=== PATIENT | male | born 1945 | race Caucasian/White ===

== ENCOUNTER 2017-06-12 10:45 | Day surgery (SDC) | payer MEDICARE ==
[~2017-06-12 10:45] MED LIST: Buffered Lidocaine 0.9% SYRIN* 5 ML/SYR SYRINGE INTRADERM ONE; Famotidine IV* 10 MG/ML 2 ML (20 mg) IV ONE
[2017-06-12] MEDS ORDERED: Famotidine IV* 10 MG/ML 2 ML (20 mg) ONE (10:55)
[2017-06-12] MEDS ORDERED: Buffered Lidocaine 0.9% SYRIN* 5 ML/SYR SYRINGE ONE (10:56)
[2017-06-12] MEDS ORDERED: Lidocaine 1% INJ* 10 MG/ML 30 ML SDV ONE (11:40)
[2017-06-12] MEDS ORDERED: Lidocaine 2% JELLY* 6 ML JELLY TOPICAL ONE (11:40)
[2017-06-12] MEDS ORDERED: Lidocaine 2% PF* 10 ML AMP ONE (11:40)
[2017-06-12] MEDS ORDERED: fentaNYL* 50 MCG/ML 2 ML VIAL (100 MCG VIAL) ONE (12:28)
[2017-06-12] MEDS ORDERED: Midazolam* 1 MG/ML 2 ML VIAL (2 MG) ONE (12:28)
[2017-06-12] MEDS ORDERED: Propofol* 10 MG/ML 20 ML BTL IV PUSH ONE (12:28)
[2017-06-12] MEDS ORDERED: DiMENhydriNATE IV* 50 MG/ML VIAL IV PUSH PRN (13:13)
[2017-06-12] MEDS ORDERED: fentaNYL* 50 MCG/ML 2 ML VIAL (100 MCG VIAL) IV PRN (13:13)
[2017-06-12 14:36] VITALS: BP 113/82
--- NOTE | 2017-06-13 03:49 | PRO ---
BRONCHOSCOPY REPORT: DATE OF PROCEDURE: 06/12/17 PROCEDURE PERFORMED: Bronchoscopy and bronchoalveolar lavage. ANESTHESIA: Conscious sedation, local anesthesia. ANESTHESIOLOGIST: Dr. Adam. DESCRIPTION OF PROCEDURE: Informed consent was obtained from the patient prior to the procedure after all the risks and benefits were thoroughly explained. The patient with complaint of cough recently. The patient had CT scan of the chest, which showed loculated small left pleural effusion with no endobronchial lesions. Given persistent cough, bronchoscopy was performed for airway evaluation. The patient was positioned with head elevated at 30 degrees prior to the procedure. The patient had upper airway and nares anesthetized with 2% lidocaine. The patient received Propofol for sedation. Bronchoscope was inserted through left nares. Flexible Olympus bronchoscope was utilized. Vocal cords were moving normally with inspiration. No lesions were noted. Bronchoscope was then advanced into the trachea. Evidence of severe tracheal bronchomalacia was noted. There was dynamic collapse of the airways. 2% lidocaine was instilled at the level of allison. Bronchoscope was then advanced into the right bronchial tree, which was then inspected. No endobronchial lesions were noted. There was evidence of thick secretions and significant dynamic collapse. Secretions were suctioned out. Bronchoalveolar lavage was obtained from right middle lobe airway. Bronchoscope was then advanced into the left bronchial tree, which was inspected. No endobronchial lesions were noted on the left side. There was also evidence of significant bronchomalacia. Thick secretions were noted and were suctioned out. The patient tolerated the procedure well. The patient was seen in Recovery in optimal condition. [id number]/[facility] #: [id number] MTDD
== END 2017-06-12 14:37 | disposition home or self-care (01) ==
LOC: OR 10:45
PROVIDERS: ATTEND Internal Medicine
DX: J90 Pleural effusion, not elsewhere classified (principal); R05 Cough; Z79.01 Long term (current) use of anticoagulants; I48.91 Unspecified atrial fibrillation; E11.9 Type 2 diabetes mellitus without complications; Z79.84 Long term (current) use of oral hypoglycemic drugs; Z87.891 Personal history of nicotine dependence; I25.10 Atherosclerotic heart disease of native coronary artery without angina pectoris; L40.50 Arthropathic psoriasis, unspecified
CPT/HCPCS: 87070; 87077; 87102; 87107; 87116; 87186; 87205; 87206; 88112; J2001; J2250; J2704; J3010

== ENCOUNTER 2018-04-01 13:00 | Inpatient (IN) | payer MEDICARE ==
--- NOTE | 2018-06-19 13:50 | HP ---
Amended report to add cosigning physician to report. HISTORY AND PHYSICAL: DATE OF ADMISSION/SURGERY: 07/01/18 DATE OF OFFICE VISIT: 06/18/18 SURGEON: Genna Palacio MD.* PROCEDURE: Right total hip arthroplasty. CHIEF COMPLAINT: Right hip pain. HISTORY OF PRESENT ILLNESS: Mr. 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 He has failed conservative treatment and elected to proceed with a right total hip arthroplasty, which is scheduled for 07/01/18. PAST MEDICAL HISTORY: Hypertension, AFib, diabetes, history of a DVT, thoracic aortic aneurysm, coronary artery disease, high cholesterol, sleep apnea, history of TIA, and asthma. PAST SURGICAL HISTORY: Carotid endarterectomy, right carpal tunnel release, cardiac stent placements, and right knee surgery. CURRENT MEDICATIONS: 1. Simponi. 2. Gabapentin 300 mg. 3. [place] 7.5/325. 4. Vitamin D3. 5. Eliquis 5 mg twice a day. 6. Atorvastatin calcium 10 mg daily. 7. Nifedipine ER 30 mg daily. 8. Klor-Con 10 mEq 2 by mouth daily. 9. Metformin 1000 mg twice a day. 10. Citalopram hydrobromide 40 mg daily. 11. Metoprolol 200 mg 1 tab in the morning, half a tab at night. 12. Nortriptyline 10 mg 2 tabs daily. 13. Glyburide 5 mg half a tab in the morning, a whole tab in the afternoon. 14. Enalapril 10 mg twice a day. 15. Plavix 75 mg daily. 16. Nitrostat as needed. 17. Pantoprazole sodium 40 mg daily. 18. Folic acid. 19. IV methotrexate weekly. ALLERGIES: To PENICILLIN, SULFA, and HOLTER MONITOR ELECTRODES. FAMILY HISTORY: Psoriatic arthritis and cancer. SOCIAL HISTORY: He is a 72-year-old gentleman, lives with his . He does not smoke or use drugs. Uses occasional alcohol. REVIEW OF SYSTEMS: A complete 14-point review of systems was reviewed with the patient. It was positive for diabetes, asthma, TIAs, and history of an upper extremity DVT following rotator cuff repair. He denies history of hepatitis, HIV, MRSA, or anesthesia problems. PHYSICAL EXAMINATION GENERAL: He is well developed, well nourished, in no acute distress. VITAL SIGNS: He stands 5 feet 3 inches tall, weighs 229 pounds. His blood pressure is 136/84, his heart rate is 80. HEENT: Normocephalic, atraumatic. NECK: Supple. No palpable lymph nodes. PULMONARY: The lungs are clear to auscultation bilaterally. CARDIO: Regular rate and rhythm. Strong S1, S2. ABDOMEN: Soft, nontender, nondistended. NEUROLOGICAL: He is alert and oriented x3. MUSCULOSKELETAL: Right lower extremity: The skin is intact. There are no open wounds or abrasions. He walks with an antalgic-type gait, favoring his right hip. He has decreased internal and external rotation of the right hip. He has a 2+ dorsalis pedis pulse, intact sensation and his lower extremity muscle group strengths are intact at 5/5. ASSESSMENT AND PLAN: Mr. Gregory is a 72-year-old gentleman with end-stage osteoarthritis of the right hip. He has failed conservative treatment and elected to proceed with a right total hip arthroplasty. The surgery is scheduled for 07/01/[address] Palacio discussed the risks and benefits of the surgery at today's visit and all of his questions were answered. He will follow up with Dr. Palacio 2 weeks after the surgery. During the office visit today, we did discuss the blood thinners that he is on. He was told to stop the Plavix 7 to 10 days prior to the surgery and the Eliquis 2 to 3 days prior to the surgery. We will restart the Eliquis as soon as possible for DVT prophylaxis after the surgery. LORENA DOTY [id number]/[facility] #: [id number] GIOVANI
[2018-06-30] MEDS ORDERED: Buffered Lidocaine 0.9% SYRIN* 5 ML/SYR SYRINGE INTRADERM ONE (11:07)
[2018-06-30] MEDS ORDERED: Ondansetron TAB* 4 MG PO ONE (11:07)
[2018-07-01] MEDS ORDERED: Naloxone* 0.4 MG/ML 1 ML VIAL IV PRN (05:59)
[2018-07-01] MEDS ORDERED: Morphine VIAL* 4 MG/ML VIAL (1 ml vial) IV PRN (05:59)
[2018-07-01] MEDS ORDERED: PROCHLORPERAZINE INJ 5 MG/ML 2 ML VIAL IV PRN (05:59)
[2018-07-01] MEDS ORDERED: DiMENhydriNATE IV* 50 MG/ML VIAL IV PUSH PRN (05:59)
[2018-07-01] MEDS ORDERED: oxyCODONE/Acetamin 5/325 MG* TAB PO PRN ×2 (05:59→15:19)
[2018-07-01] MEDS ORDERED: Famotidine IV* 10 MG/ML 2 ML (20 mg) IV ONE (06:00)
[2018-07-01] MEDS ORDERED: Gabapentin CAP(*) 300 MG PO ONE (06:00)
[2018-07-01] MEDS ORDERED: Famotidine IV* 10 MG/ML 2 ML (20 mg) ONE (09:41)
[2018-07-01] MEDS ORDERED: Gabapentin CAP(*) 300 MG ONE (09:42)
[2018-07-01] MEDS ORDERED: Ondansetron ODT TAB* 4 MG ONE (09:42)
[2018-07-01] MEDS ORDERED: Clindamycin 900 MG/D5W BAG(*) 900 MG/50 ML BAG IVPB ONE (09:42)
[2018-07-01] MEDS ORDERED: KETAMINE HCL* 50 MG/ML 10 ML VIAL ONE (10:19)
[2018-07-01] MEDS ORDERED: fentaNYL* 50 MCG/ML 2 ML VIAL (100 MCG VIAL) ONE ×2 (10:19→15:54)
[2018-07-01] MEDS ORDERED: Midazolam* 1 MG/ML 5 ML VIAL (5 MG) ONE (10:20)
[2018-07-01] MEDS ORDERED: PROCHLORPERAZINE INJ 5 MG/ML 2 ML VIAL ONE (13:04)
[2018-07-01] MEDS ORDERED: EPHEDrine (Pressors)* 50 MG/ML VIAL ONE (13:04)
[2018-07-01] MEDS ORDERED: Lidocaine 2% PF * 5 ML VIAL ONE (13:04)
[2018-07-01] MEDS ORDERED: Phenylephrine INJ* 10 MG/ML 1 ML VIAL (10 MG) ONE (13:04)
[2018-07-01] MEDS ORDERED: Ketorolac INJ* 30 MG/ML 1 ML VIAL ONE (13:04)
[2018-07-01] MEDS ORDERED: Propofol* 10 MG/ML 20 ML BTL IV PUSH ONE (13:04)
[2018-07-01] MEDS ORDERED: Bupivacaine 0.5% SDV PF* 30ML VIAL ONE (13:05)
[2018-07-01] MEDS ORDERED: Morphine VIAL* 10 MG/ML 1 ML VIAL ONE (13:36)
--- NOTE | 2018-07-01 14:28 | RAD ---
HISTORY: RIGHT TOTAL HIP REPLACEMENT COMPARISONS: February 28, 2018 VIEWS: 1 , portable intraoperative view of the right hip during hip arthroplasty FINDINGS: Single portable intraoperative view of the right hip during hip arthroplasty at 1:47 PM demonstrates a right hip arthroplasty with a temporary femoral sizing component. IMPRESSION: LIMITED PORTABLE INTRAOPERATIVE VIEW OF THE RIGHT HIP DURING HIP ARTHROPLASTY.
[2018-07-01] MEDS ORDERED: ROPIVACAINE 5 MG/ML 30 ML BTL (0.5%) ONE ×2 (14:32→18:22)
[2018-07-01] MEDS ORDERED: Ondansetron INJ* 2 MG/ML VIAL IV PRN (15:19)
[2018-07-01] MEDS ORDERED: oxyCODONE TAB* 5 MG TAB PO PRN (15:19)
[2018-07-01] MEDS ORDERED: Bisacodyl SUPP* 10 MG SUPP PR PRN (15:19)
[2018-07-01] MEDS ORDERED: diPHENhydraMINE IV* 50 MG/ML 1 ml VIAL (BENADRYL) IV PRN (15:19)
[2018-07-01] MEDS ORDERED: Acetaminophen TAB* 325 MG PO PRN (15:19)
[2018-07-01] MEDS ORDERED: Magnesium Hydroxide LIQ* 30 ML UDC PO PRN (15:19)
[2018-07-01] MEDS: fentaNYL* 50 MCG/ML 2 ML VIAL (100 MCG VIAL) IV PRN ×3 (15:55→16:01)
[2018-07-01] MEDS ORDERED: Morphine VIAL* 4 MG/ML VIAL (1 ml vial) IV ONE (16:03)
--- NOTE | 2018-07-01 16:04 | RAD ---
HISTORY: S/P RTHA COMPARISONS: February 28, 2018 VIEWS: 3 , Frontal view of the pelvis with frontal and crosstable lateral views of the right hip FINDINGS: BONE DENSITY: Normal. BONES: The patient is status post right hip arthroplasty. There is no hardware failure or osteolysis. JOINTS: The patient is status post right hip arthroplasty. ALIGNMENT: There is no dislocation. SOFT TISSUES: Unremarkable. OTHER FINDINGS: None. IMPRESSION: STATUS POST RIGHT HIP ARTHROPLASTY.
--- NOTE | 2018-07-01 16:44 | PN ---
Progress Note - Progress Note Date of Service: 07/01/18 Note: resting in recovery room. Pain well controlled. able to dorsi flex, 2+ DP pulse and intact sensation. dressing c/d/i
[2018-07-01] MEDS ORDERED: Dextrose 50% Syringe 50 ML* 25 GM/50 ML SYRINGE IV PUSH PRN (17:07)
[2018-07-01] MEDS: Magnesium Hydroxide LIQ* 30 ML UDC PO SCH (20:38)
[2018-07-01] MEDS: Docusate CAP* 100 MG PO SCH (20:38)
[2018-07-01] MEDS: oxyCODONE/Acetamin 5/325 MG* TAB PO PRN (20:38)
[2018-07-01] MEDS: Clindamycin 600 MG IVPREMIX(* 600 MG/50 ML SDV IV SCH (20:42)
[2018-07-01] MEDS: Insulin LISPRO* 1 UNITS UNIT SUBCUT SCH (20:53)
[2018-07-01] MEDS ORDERED: Apixaban* 5 MG TAB PO SCH (21:00)
[2018-07-01] MEDS ORDERED: Metoprolol Tartrate TAB* 25 MG PO ONE (21:00)
--- NOTE | 2018-07-01 22:15 | CONS ---
CONSULTATION REPORT: DATE OF CONSULT: 07/01/18 PROVIDER: Gretchen Sun NP ATTENDING PHYSICIAN: Dr. Sujey Mireles. REFERRING PHYSICIAN: Orthopedic surgeon, Dr. Palacio. PRIMARY CARE PROVIDER: Dr. Puma Nixon. REASON FOR CONSULT: Co-medical management, status post right hip total arthroplasty. HISTORY OF PRESENT ILLNESS: Mr. Gregory is a 72-year-old male with end-stage osteoarthritis, who failed conservative treatment and underwent an elective right total hip arthroplasty today with Dr. Palacio. He had a successful surgery with no intraoperative complications. He was seen and evaluated in the postanesthesia care unit where he was found to be lying in bed with his at the bedside. He is drowsy and still recovering from anesthesia. He currently denies pain. Vital signs are noted to be stable. The patient underwent a preoperative cardiac workup by his director occupational, Dr. Cohen, as well as his primary care provider, Dr. Nixon and web marketing assistant, Dr. Christie. The has no concerns at this time. PAST MEDICAL HISTORY: Hypertension; atrial fibrillation; stc-pmrmmvq-nytghalpt type 2 diabetes; history of DVT; thoracic aortic aneurysm; coronary artery disease, status post stent placement; hyperlipidemia; sleep apnea; history of TIA; asthma; and history of moderate aortic stenosis. PAST SURGICAL HISTORY: 1. Carotid endarterectomy. 2. Right carpal tunnel release. 3. Cardiac stent placement. 4. Right knee surgery. HOME MEDICATIONS: 1. Metformin 1000 mg p.o. b.i.d. 2. Glyburide 2.5 mg half a tab in the a.m. and a full tab in the evening. 3. Potassium chloride 20 mEq p.o. q.a.m. 4. Protonix 40 mg p.o. q.a.m. 5. Nortriptyline 20 mg p.o. at bedtime. 6. Metoprolol succinate 200 mg p.o. q.a.m. and 100 mg p.o. q.p.m. 7. Nitroglycerin 0.4 mg sublingual p.r.n. 8. Methotrexate 0.4 mL (10 mg) subcu once weekly. 9. Vasotec 10 mg p.o. b.i.d. 10. [place] 10/325 mg 1 tab p.o. q.6 hours p.r.n. 11. Folic acid 1 mg p.o. q.a.m. 12. Celexa 40 mg p.o. q.a.m. 13. Plavix 75 mg p.o. daily. 14. Eliquis 5 mg p.o. b.i.d. 15. Atorvastatin 10 mg p.o. q.p.m. 16. Procardia XL 30 mg p.o. q.p.m. 17. Simponi Aria 50 mg/4 mL 2 mg/kg IV infusion, see instructions. Current medications: Reviewed and appreciated. ALLERGIES: PENICILLIN, SULFA. FAMILY HISTORY: Cancer and psoriatic arthritis. SOCIAL HISTORY: Denies history of tobacco abuse. Occasional alcohol use. He currently lives with his , Dede Gregory, who is his healthcare proxy. Her number is [phone]. REVIEW OF SYSTEMS: A 14-point review of systems was completed. All the pertinent positives and negatives as mentioned in the history of present illness. Otherwise are negative. PHYSICAL EXAM: Vital Signs: Temperature 98.1, heart rate 72, respirations 16, O2 sat 98% on 2 L via nasal cannula, blood pressure 122/86. General Appearance : A 72- year-old male, lying in the PACU stretcher, drowsy, alert and oriented , in no acute distress. HEENT: Head is normocephalic and atraumatic. Pupils are equal and reactive to light. Oropharynx is clear. Dry mucous membranes. Cardiac: S1, S2. Regular rate and rhythm. No murmur, rub, or gallop appreciated. No lower extremity edema noted. Lungs: Clear to auscultation bilaterally with good aeration throughout. Abdomen: Soft, obese, nontender. Normal bowel sounds throughout. Extremities: The patient is in a hip restricted pillow. Right hip has dry, clean, and intact dressing with ice packs. The patient has sensation to lower extremities bilaterally. Neuro: Alert and oriented x3. No focal deficits noted. ASSESSMENT AND PLAN: Mr. Gregory is a 72-year-old male with a past medical history of end-stage osteoarthritis; coronary artery disease, status post stent placement; paroxysmal atrial fibrillation, on Eliquis; pgb-ilvqgzi-bukozwqrh type 2 diabetes; history of moderate aortic stenosis; psoriatic arthritis, who underwent an elective right total hip arthroplasty with Dr. Palacio. [facility] was asked to co- medical manage. 1. Status post right hip total arthroplasty. Disposition per orthopedic team. PT/OT. Bowel regimen. 2. Paroxysmal atrial fibrillation. Recommendation per primary was to restart anticoagulation as soon as cleared by Ortho. Discussed with Dr. Palacio, who agrees restarting home dose Eliquis 5 mg p.o. b.i.d. starting tomorrow morning on 07/02/18. The patient currently is in a normal sinus rhythm. Continue metoprolol; however, I will hold his home dose which he takes metoprolol succinate 100 mg p.o. q.p.m. and 200 mg q.a.m. I will plan to give 1 dose of metoprolol tartrate 25 mg p.o. this evening and we will monitor blood pressures in the postoperative phase. 3. Eea-mozbfdt-prsabtbts type 2 diabetes. Hold home oral medications and start on fingerstick blood glucose monitoring a.c. and h.s. with lispro sliding scale. 4. History of coronary artery disease, status post stent placement. Recommendation per Cardiology on preop evaluation recommended continuing his metoprolol perioperatively. Per Cardiology, okay to hold his Plavix postoperatively and he can be reevaluated at Dr. Cohen's office after surgery. 5. History of psoriatic arthritis. Followed by web marketing assistant, Dr. Christie. The patient's Simponi Aria is currently on hold. The patient will follow up with Dr. Christie as an outpatient postoperatively. The patient currently is on methotrexate weekly as a subcutaneous injection and unclear when this was last given. We will discuss with the patient. 6. Hypertension. We will continue to hold enalapril and nifedipine in the postoperative phase. We will evaluate blood pressures daily. 7. DVT prophylaxis: Discussed with orthopedic surgeon, Dr. Palacio, to hold giving DVT prophylaxis this evening and start Eliquis in the morning. 8. Code status: Full code. TIME SPENT: Approximately 60 minutes were spent on this consultation. GRETCHEN SUN, MINI [id number]/[facility] #: [id number] GIOVANI
[2018-07-02] MEDS: Clindamycin 600 MG IVPREMIX(* 600 MG/50 ML SDV IV SCH ×2 (04:30→12:24)
[2018-07-02] MEDS ORDERED: NS 0.9% 250 ML* 250 ML IV ONE (05:50)
[2018-07-02] MEDS: oxyCODONE/Acetamin 5/325 MG* TAB PO PRN (05:57)
[2018-07-02 06:18] LABS: Hematocrit 36 % (42-52); Mean Platelet Volume 8.8 um3 (7.4-10.4); Platelet Count 178 10^3/ul (150-450)
[2018-07-02 06:26] LABS: INR 1.16 (0.77-1.02)
[2018-07-02 06:44] LABS: EGFR Non-African American 34.8 (>60)
--- NOTE | 2018-07-02 07:06 | PN ---
Subjective Date of Service: 07/02/18 Interval History: Patient reports he "feels good better than last night". Reports R hip pain . Denies hx of constipation. Denies nausea - reports he is tolerated his breakfast well. Denies dysuria. No flank pain. Objective Active Medications: Acetaminophen (Tylenol Tab*) 650 mg PO Q8H PRN PRN Reason: PAIN OR TEMPERATURE Apixaban (Eliquis*) 5 mg PO BID JORY Bisacodyl (Dulcolax Supp*) 10 mg [place] DAILY PRN PRN Reason: constipation Cyclobenzaprine HCl (Flexeril Tab*) 5 mg PO TID PRN PRN Reason: SPASMS Dextrose (D50w Syringe 50 Ml*) 12.5 gm IV PUSH .FOR FS < 60 - SS PRN PRN Reason: FS < 60 Diphenhydramine HCl (Benadryl Iv*) 25 mg IV Q6H PRN PRN Reason: itching Docusate Sodium (Colace Cap*) 100 mg PO BID [facility] Last Admin: 07/01/18 20:38 Dose: 100 mg Clindamycin HCl/Dextrose (Cleocin 600 Mg Ivpremix(*) Sdv) 600 mg in 50 mls @ 100 mls/hr IV Q8H [facility] Stop: 07/02/18 12:59 Last Admin: 07/02/18 04:30 Dose: 100 mls/hr Lactated Ringer's (Lactated Ringers 1000 Ml Bag*) 1,000 mls @ 75 mls/hr IV PER RATE [facility] Last Admin: 07/01/18 18:36 Dose: 75 mls/hr Insulin Human Lispro (Humalog*) 0 units SUBCUT [facility]; Protocol Last Admin: 07/01/18 20:53 Dose: 2 units Magnesium Hydroxide (Milk Of Magnesia Liq*) 30 ml PO BID [facility] Last Admin: 07/01/18 20:38 Dose: 30 ml Magnesium Hydroxide (Milk Of Magnesia Liq*) 30 ml PO Q6H PRN PRN Reason: constipation Morphine Sulfate (Morphine Inj (Syringe)*) 2 mg IV Q2H PRN PRN Reason: PAIN - SEVERE Ondansetron HCl (Zofran Inj*) 4 mg IV Q6H PRN PRN Reason: nausea Oxycodone HCl (Roxycodone Tab*) 10 mg PO Q4H PRN PRN Reason: PAIN - SEVERE Oxycodone/Acetaminophen (Percocet 5/325 Tab*) 1 tab PO Q4H PRN PRN Reason: PAIN Oxycodone/Acetaminophen (Percocet 5/325 Tab*) 2 tab PO Q4H PRN PRN Reason: PAIN Last Admin: 07/02/18 05:57 Dose: 2 tab Vital Signs - 8 hr 07/01/18 07/02/18 07/02/18 23:17 00:17 03:39 Temperature 98.0 F 98.3 F Pulse Rate 73 73 Respiratory 16 18 18 Rate Blood Pressure 133/81 108/65 (mmHg) O2 Sat by Pulse 98 92 Oximetry 07/02/18 05:57 Temperature Pulse Rate Respiratory 16 Rate Blood Pressure (mmHg) O2 Sat by Pulse Oximetry Oxygen Devices in Use Now: Nasal Cannula Appearance: 72 yo male A+Ox3 in NAD Eyes: No Scleral Icterus, PERRLA Ears/Nose/Mouth/Throat: NL Teeth, Lips, Gums, Mucous Membranes Moist Neck: NL Appearance and Movements; NL JVP Respiratory: Symmetrical Chest Expansion and Respiratory Effort, Clear to Auscultation Cardiovascular: NL Sounds; No Murmurs; No JVD, RRR, No Edema Abdominal: NL Sounds; No Tenderness; No Distention Extremities: No Edema, No Clubbing, Cyanosis Neurological: Alert and Oriented x 3, NL Muscle Strength and Tone Lines/Tubes/Other Access: Clean, Dry and Intact Peripheral IV Nutrition: Taking PO's Result Diagrams: 07/02/18 06:02 07/02/18 06:02 Microbiology and Other Data: Microbiology 07/01/18 22:34 Nasal Screen MRSA (PCR) - Final Nasal Mrsa Detected Assess/Plan/Problems-Billing Assessment: 72 yo female with a PMH of end-stage osteoarthritis, HTN, afib on eliquis, wbt-[id number]-SK3, hx of DVT, CAD s/p stent placement, moderate aortic stenosis, asthma who underwent and elective right total hip arthroplasty on . - Patient Problems (1) History of total right hip arthroplasty Comment: POD #1 Dispo per Ortho PT/OT Pain management, bowel regimen (2) Acute on chronic renal failure Comment: - creatinine 1.9 this am, up from baseline 1-1.3. Unclear etiology but could be multifactorial - low BP, medication, dehydration. Low urine output overnight -> buffing turner and counter gave 250 ml bolus. - FENA -> prerenal - gentle IVFS - Strict I+Os - repeat BMP in am (3) Hx of coronary artery disease Comment: s/p stent placement Follows with Dr. Cohen outpt Continue BB (4) Afib Comment: - NSR. - continue BB (restart home dose when BP can tolerate), jefe restarted this am. (5) HTN (hypertension) Comment: - continue to hold vasotec, procardia in the post-operative phase - continue BB at lower dose - continue to monitor BPs closely restarting home meds when appropriate (6) Full code status (7) DVT prophylaxis Comment: Eliquis Status and Disposition: inpatient. Dispo per Orth Team. Hospital medicine co-medical management
[2018-07-02] MEDS: Insulin LISPRO* 1 UNITS UNIT SUBCUT SCH ×4 (08:02→21:54)
[2018-07-02] MEDS: Apixaban* 5 MG TAB PO SCH ×2 (08:07→21:54)
[2018-07-02] MEDS: Metoprolol Tartrate TAB* 25 MG PO SCH ×2 (08:07→21:54)
[2018-07-02] MEDS: Magnesium Hydroxide LIQ* 30 ML UDC PO SCH ×2 (08:07→21:53)
[2018-07-02] MEDS: Docusate CAP* 100 MG PO SCH ×2 (08:07→21:54)
[2018-07-02] MEDS ORDERED: NS 0.9% 1000 ML* 1,000 ML IV SCH (09:15)
--- NOTE | 2018-07-02 10:25 | OP ---
DATE OF OPERATION: 07/01/18 - ROOM #447 DATE OF : 41 SURGEON: Genna Palacio MD CARTRIDGE LOADING OPERATOR: LORENA Rice. Mr. Galeana did help throughout the procedure with preparation of the leg, wound retraction, manipulation of the hip, and wound closure. ANESTHESIOLOGIST: Dr. Fermin. ANESTHESIA: General. PRE-OP DIAGNOSIS: Severe end-stage degenerative osteoarthritis of the right hip joint. POST-OP DIAGNOSIS: Severe end-stage degenerative osteoarthritis of the right hip joint. OPERATIVE PROCEDURE: Right total hip arthroplasty. HARDWARE USED: This is uncemented [place] total hip arthroplasty hardware. For the cup, a 52D Tritanium cluster hole shell, a single 20-mm screw was used. For the polyethylene, a 36D 0-degree Trident X3 polyethylene liner. For the stem, an Accolade II size 4 with 132-degree neck angle. For the head, a Biolox delta ceramic femoral head 36 -5. BRIEF HISTORY/INDICATIONS: Mr. Gregory is a 72-year-old gentleman with psoriatic arthritis and chronic pain in the right hip. Radiograph showed severe arthritis. He failed conservative treatment with anti-inflammatories, pain medication, intra-articular injections, and physical therapy. Due to continued pain and decreased quality of life, he elected to undergo right total hip arthroplasty. Informed consent was obtained from the patient. The understood the risks of the procedure included but were not limited to bleeding , infection, damage to nearby structures, continued pain, need for further surgery, intraoperative fracture, nerve palsy, hardware failure or loosening, dislocation, leg length discrepancy, stroke, heart attack, blood clot, and . He wished to proceed. INTRAOPERATIVE FINDINGS: Intraoperatively, the patient had complete loss of cartilage along the femoral head and acetabulum with extensive osteophyte formation around the acetabulum. DESCRIPTION OF PROCEDURE: Mr. Gregory was identified in the preanesthesia unit. His right lower extremity was marked as the correct operative side. Informed consent was signed and placed in the chart. The patient was taken to the operating room and placed under general anesthesia. A Abdalla catheter was placed. He was placed in the left lateral decubitus position on the peg board. All bony prominences were well padded. Right lower extremity was prepped and draped in the usual sterile fashion. Preop time-out was made to correctly identify the patient, side, and site. Appropriate perioperative antibiotics were given within 1 hour of incision. A 12-cm posterior hip incision was made with a 10-blade and carried down to the lateral fascial layer. A new 10-blade was used to incise the lateral fascia. Charnley retractor was placed and the posterior aspect of the hip joint was visualized. The piriformis and conjoint tendons were elevated off the posterolateral femur using electrocautery. These were tagged with #5 Ethibond. Next, the electrocautery was used to make a standard posterolateral capsular flap. This was also tagged with #5 Ethibond. The hip was carefully dislocated. Lesser troch to the center of the femoral head measured 55 mm. Oscillating saw was used to make a femoral neck cut. The femoral head was carefully removed. The femur was carefully retracted anteriorly. After appropriate placement of retractors, the acetabulum was well visualized. Long-handled knife was used to sharply remove any remaining labrum from the acetabular rim. The acetabulum was sequentially reamed up to a size 51. The 51 reamer obtained a bleeding subchondral bone bed. A 51 trial had excellent fit with appropriate anteversion and abduction angle. Final implant chosen was a 52D Tritanium cluster hole shell. This was impacted into the acetabulum without difficulty. The cup was extremely stable with appropriate anteversion and abduction angle. A single 20-mm screw was placed in the superior-posterior quadrant for extra stability. A Trident X3 0-degree liner 36D was chosen as the appropriate liner. This was locked into position in the acetabulum. Stability of the insert was checked and rechecked and noted to be stable. Next, attention was turned to preparation of the femoral canal. Canal finder was used to enter the proximal femur. Femoral canal was sequentially broached up to a size 4. Size 4 broach had good fit, stability, and appropriate anteversion. A 132 neck trial was chosen with 36 +0 head trial. Lesser troch to the center of the femoral head measured 59 mm; therefore, a 36 -5 head trial was chosen. Troch to the centered of the femoral head measured 56 mm. The hip was reduced and taken through a range of motion. The hip was stable in all positions with appropriate soft tissue tension and leg lengths. The hip was carefully dislocated. All trials were carefully removed. Final implant chosen was an Accolade II size 4 with a 132 neck trial. This was impacted into the femoral canal without difficulty. The stem was stable with appropriate anteversion. A Biolox delta ceramic V40 femoral head 36 -5 was chosen as the correct femoral head. This was impacted into position on the femoral neck. Lesser troch to the center of the femoral head measured 56 mm. The hip was reduced and taken through a range of motion. The hip was stable in all positions. There was good soft tissue tension and appropriate leg lengths. The wound was copiously irrigated with sterile saline. The previously tagged tendons and capsule were reapproximated to the posterolateral femur with two trochanteric drill holes. The lateral fascial layer was closed using interrupted #1 Vicryl. The rest of the incision was closed in a layered fashion using 0 and 2-0 Vicryl. Skin was closed using running 3-0 Monocryl with Dermabond. Sterile Adaptic, 4x4s, Webril, and paper tape were used to cover the incision. The patient's anesthesia was reversed without difficulty. He was taken to the PACU in stable condition. Intended weightbearing will be weightbearing as tolerated. Intended DVT prophylaxis will be his baseline Eliquis. [id number]/[facility] #: [id number] GIOVANI
--- NOTE | 2018-07-02 11:09 | PN ---
Progress Note - Progress Note Date of Service: 07/02/18 SOAP: Subjective: POD #1 Right TEJAS, doing ok. States that he was "out of it" all night, concerned Percocet may be too sedating. Denies CP/SOB, n/v, f/c or calf pain. Objective: Vitals: Temp Pulse Resp BP Pulse Ox 97.9 F 79 18 135/73 96 07/02/18 07:21 07/02/18 08:06 07/02/18 08:06 07/02/18 08:06 07/02/18 07:21 Gen: A&Ox3, NAD at rest sitting in chair Right hip: Dressing C/D/I, +f/e at ankle and MTPs. Unable to extend knee or flex hip due to nerve block. Sensation intact, DP 2+ Labs: Laboratory Results - last 24 hr 07/01/18 07/01/18 07/02/18 15:24 20:47 06:02 Hgb 12.0 L Hct 36 L Plt Count 178 MPV 8.8 INR (Anticoag Therapy) Sodium Potassium Chloride Carbon Dioxide Anion Gap BUN Creatinine Est GFR ( Amer) Est GFR (Non-Af Amer) BUN/Creatinine Ratio Glucose POC Glucose (mg/dL) 138 H 178 H Calcium 07/02/18 07/02/18 07/02/18 06:02 06:02 07:08 Hgb Hct Plt Count MPV INR (Anticoag Therapy) 1.16 H Sodium 135 Potassium 4.9 Chloride 103 Carbon Dioxide 29 Anion Gap 3 BUN 30 H Creatinine 1.90 H Est GFR ( Amer) 42.1 Est GFR (Non-Af Amer) 34.8 BUN/Creatinine Ratio 15.8 Glucose 171 H POC Glucose (mg/dL) 162 H Calcium 8.3 L Assessment: POD #1 Right TEJAS Plan: Eliquis for DVT ppx Cont PT/OT Switch to Tramadol for pain control
[2018-07-02] MEDS: traMADol TAB* 50 MG PO PRN ×2 (12:24→21:53)
[2018-07-02 13:09] LABS: Urine Appearance Cloudy; Urine Blood 3+ (Negative); Urine Color Yellow; Urine Ketones Negative (Negative); Urine Protein Negative (Negative); Urine Red Blood Cell 3+(>10/hpf) (Absent); Urine Specific Gravity 1.018 (1.010-1.030); Urine Urobilinogen Negative (Negative); Urine White Blood Cell 2+(11-20/hpf) (Absent)
--- NOTE | 2018-07-02 22:13 | PN ---
Progress Note - Progress Note Date of Service: 07/02/18 Note: I saw patient tonight he did well in the OR but is having some pain tonight. He had no recall of the OR, no N/V.
[2018-07-02] MEDS ORDERED: Metoprolol Tartrate IV* 1 MG/ML 5 ML VIAL IV ONE (22:36)
[2018-07-02] MEDS ORDERED: Metoprolol Tartrate IV* 1 MG/ML 5 ML VIAL ONE (22:49)
[2018-07-02 22:51] LABS: ABS Basophils 0 10^3/ul (0-0.2); ABS Eosinophils 0.1 10^3/ul (0-0.6); ABS Lymphocytes 1.2 10^3/ul (1.0-4.8); ABS Monocytes 0.7 10^3/ul (0-0.8); ABS Neutrophils 4.2 10^3/ul (1.5-7.7); ABS Nucleated RBC 0 10^3/ul; Eosinophil % 2.1 % (0-6); Hematocrit 36 % (42-52); Hemoglobin 11.9 g/dl (14.0-18.0); Lymphocyte % 18.8 % (25-47); Mean Corpuscular HGB Conc 33 g/dl (31-36); Mean Corpuscular Hemoglobin 33 pg (27-31); Mean Corpuscular Volume 99 fL (80-94); Mean Platelet Volume 8.6 um3 (7.4-10.4); Nucleated Red Blood Cells % 0; Platelet Count 162 10^3/ul (150-450); Red Blood Count 3.61 10^6/ul (4.00-5.40); Red Cell Distribution Width 16 % (10.5-15); White Blood Count 6.3 10^3/ul (3.5-10.8)
[2018-07-02] MEDS ORDERED: Nitroglycerin TAB 0.4 MG* 0.4 MG TAB SL ONE (22:51)
--- NOTE | 2018-07-02 22:56 | PN ---
Hospitalist Progress Note Date of Service: 07/02/18 Called to bedside for chest pain and afib rvr. Pt examined at the bedside. States that he is having a sharp pain in his chest, denies sob,nausea or diaphoresis, states that the pain started at 2130. Nursing staff gave lorpessor 25mg po. Note that patient is one 300mg lopressor xl daily and dose reduced due to bp being low. Patient lungs, cta, heart sounds irregular and tachy, no rales noted, Plan to obtain EKG, CXR, TROPs, cbc bmp, mag, trops times three, [facility], will given iv lopressor now, and nitro, plavix , statin, suspect chest pain resulting from afib rvr, PE on differential however creatitine will not allow for cta and pt on eliquis already. Discussed with ortho patent prosecution paralegal, state plavix, ok to give, also updated attending ortho Dr fuentes. Discussed case with Dr Smith, transferring to ,
[2018-07-02 23:03] LABS: EGFR Non-African American 47.6 (>60)
[2018-07-02] MEDS: Clopidogrel TAB* 75 MG PO SCH (23:39)
[2018-07-02] MEDS: Morphine INJ* 4 MG/ML 1 ML SYRINGE (NEW SYRINGE VERSION) IV PRN (23:43)
[2018-07-03] MEDS: HYDROcodone/ACETAMIN 5-325 MG* 1 TAB PO PRN ×6 (02:04→22:38)
[2018-07-03 05:23] LABS: ABS Basophils 0 10^3/ul (0-0.2); ABS Eosinophils 0.1 10^3/ul (0-0.6); ABS Monocytes 0.9 10^3/ul (0-0.8); ABS Neutrophils 4.5 10^3/ul (1.5-7.7); ABS Nucleated RBC 0 10^3/ul; Eosinophil % 1.4 % (0-6); Hematocrit 33 % (42-52); Hemoglobin 11.3 g/dl (14.0-18.0); Mean Corpuscular HGB Conc 34 g/dl (31-36); Mean Corpuscular Hemoglobin 33 pg (27-31); Mean Corpuscular Volume 98 fL (80-94); Mean Platelet Volume 8.2 um3 (7.4-10.4); Nucleated Red Blood Cells % 0; Platelet Count 154 10^3/ul (150-450); Red Cell Distribution Width 16 % (10.5-15); White Blood Count 6.5 10^3/ul (3.5-10.8)
[2018-07-03 05:28] LABS: INR 1.52 (0.77-1.02)
[2018-07-03 05:40] LABS: EGFR Non-African American 58.6 (>60)
--- NOTE | 2018-07-03 07:33 | RAD ---
INDICATION: Chest pain with atrial fibrillation. COMPARISON: Comparison is made with a prior study from August 26, 2017. TECHNIQUE: A portable view of the chest was obtained. FINDINGS: Cardiac and mediastinal contours appear to be within normal limits. The lungs are underinflated and clear. No pleural effusion is seen. IMPRESSION: NO EVIDENCE FOR ACUTE DISEASE. R1NF
[2018-07-03] MEDS: Citalopram TAB* 40 MG PO SCH (09:08)
[2018-07-03] MEDS: Metoprolol Succinate XL TAB* 200 MG TAB.XL PO SCH (09:08)
[2018-07-03] MEDS: Apixaban* 5 MG TAB PO SCH ×2 (09:08→21:36)
[2018-07-03] MEDS: Docusate CAP* 100 MG PO SCH ×2 (09:08→21:36)
[2018-07-03] MEDS: Clopidogrel TAB* 75 MG PO SCH ×2 (09:08→10:04)
[2018-07-03] MEDS: Magnesium Hydroxide LIQ* 30 ML UDC PO SCH ×2 (09:08→21:36)
[2018-07-03] MEDS: CMCS:Pantoprazole TAB (NF) 40 MG TAB PO SCH (09:08)
[2018-07-03] MEDS: Folic Acid TAB* 1 MG PO SCH (09:08)
[2018-07-03] MEDS: Morphine INJ* 4 MG/ML 1 ML SYRINGE (NEW SYRINGE VERSION) IV PRN (09:09)
[2018-07-03] MEDS: Insulin LISPRO* 1 UNITS UNIT SUBCUT SCH ×4 (09:09→22:38)
--- NOTE | 2018-07-03 11:55 | PN ---
Progress Note - Progress Note Date of Service: 07/03/18 SOAP: Subjective: []Patient seen and examined at bedside. He continues to have a great deal of pain in his right hip and he was unable to get out of bed with physical therapy today. He has has no falls and has maintained hip precautions to his and staffs knowledge though he has had knee buckling yesterday. He continues to have decreased sensation of his foot which has been reported with varying response when assessed on different occasions today as better, the same as and worse than yesterday. No longer having severe chest pain, though does feel mild midline tightness without any new symptoms from yesterday. Denies SOB, dizziness , nausea. Objective: []General: Well appearing, NAD RLE: Right hip dressing changed, incision CDI without erythema or discharge. Block site without erythema or obvious hematoma. Thigh is soft. Unable to passively or actively flex at hip due to pain at hip. No obvious deformity or rotation of the RLE. DF/PF intact. Sensation decreased of the foot including all surfaces dorsum, medial, lateral, plantar, 1st webspace. Sensation normal to light touch hip to ankle. Capillary refill less than two seconds distally on all 5 digits, DP2+. Calves are supple and nontender without erythema, edema or palpable cords. Assessment: []POD #2 Right TEJAS Plan: Eliquis for DVT ppx Cont PT/OT xray right hip/ pelvis ordered due to severe pain with ROM Discussed with medicine, metoprolol dose had been reduced for hypotension explaining onset of a fib. Patient was in a fib for many years and presumably would continue to be without metoprolol. Vital Signs Temp 97.8 F 07/03/18 07:19 Pulse 81 07/03/18 07:19 Resp 20 07/03/18 10:23 BP 119/70 07/03/18 07:19 Pulse Ox 93 07/03/18 07:19 Intake & Output 07/02/18 07/03/18 07/03/18 18:59 06:59 18:59 Intake Total 2719 1370 Output Total 400 450 Balance 2319 920 Intake: IV Fluids 1174 1010 LR 924 NS (0.9%) 250 1010 IVPB 105 LR 105 Oral 1440 360 Output: Urine 325 450 Abdalla 75 Other: # Bowel Movements 0 Laboratory Last Values WBC 6.5 10^3/ul (3.5-10.8) 07/03/18 05:18 RBC 3.40 10^6/ul (4.00-5.40) L 07/03/18 05:18 Hgb 11.3 g/dl (14.0-18.0) L 07/03/18 05:18 Hct 33 % (42-52) L 07/03/18 05:18 MCV 98 fL (80-94) H 07/03/18 05:18 MCH 33 pg (27-31) H 07/03/18 05:18 MCHC 34 g/dl (31-36) 07/03/18 05:18 RDW 16 % (10.5-15) H 07/03/18 05:18 Plt Count 154 10^3/ul (150-450) 07/03/18 05:18 MPV 8.2 um3 (7.4-10.4) 07/03/18 05:18 Neut % (Auto) 68.5 % (38-83) 07/03/18 05:18 Lymph % (Auto) 16.0 % (25-47) L 07/03/18 05:18 [place] % (Auto) 13.6 % (0-7) H 07/03/18 05:18 Eos % (Auto) 1.4 % (0-6) 07/03/18 05:18 Baso % (Auto) 0.5 % (0-2) 07/03/18 05:18 Absolute Neuts (auto) 4.5 10^3/ul (1.5-7.7) 07/03/18 05:18 Absolute Lymphs (auto) 1.0 10^3/ul (1.0-4.8) 07/03/18 05:18 Absolute Monos (auto) 0.9 10^3/ul (0-0.8) H 07/03/18 05:18 Absolute Eos (auto) 0.1 10^3/ul (0-0.6) 07/03/18 05:18 Absolute Basos (auto) 0 10^3/ul (0-0.2) 07/03/18 05:18 Absolute Nucleated RBC 0 10^3/ul 07/03/18 05:18 Nucleated RBC % 0 07/03/18 05:18 INR (Anticoag Therapy) 1.52 (0.77-1.02) H 07/03/18 05:18 Sodium 133 mmol/L (135-145) L 07/03/18 05:18 Potassium 4.5 mmol/L (3.5-5.0) 07/03/18 05:18 Chloride 102 mmol/L (101-111) 07/03/18 05:18 Carbon Dioxide 28 mmol/L (22-32) 07/03/18 05:18 Anion Gap 3 mmol/L (2-11) 07/03/18 05:18 BUN 21 mg/dL (6-24) 07/03/18 05:18 Creatinine 1.21 mg/dL (0.67-1.17) H 07/03/18 05:18 Est GFR ( Amer) 70.9 (>60) 07/03/18 05:18 Est GFR (Non-Af Amer) 58.6 (>60) 07/03/18 05:18 BUN/Creatinine Ratio 17.4 (8-20) 07/03/18 05:18 Glucose 190 mg/dL (70-100) H 07/03/18 05:18 POC Glucose (mg/dL) 119 mg/dL (70-100) H 07/03/18 11:38 Lactic Acid 1.4 mmol/L (0.5-2.0) 07/03/18 00:29 Calcium 8.1 mg/dL (8.6-10.3) L 07/03/18 05:18 Magnesium 1.9 mg/dL (1.9-2.7) 07/02/18 22:36 Troponin I 0.02 ng/mL (<0.04) 07/03/18 05:18 TSH 0.77 mcIU/mL (0.34-5.60) 07/02/18 22:36 Urine Color Yellow 07/02/18 12:36 Urine Appearance Cloudy 07/02/18 12:36 Urine pH 5.0 (5-9) 07/02/18 12:36 Ur Specific [place] 1.018 (1.010-1.030) 07/02/18 12:36 Urine Protein Negative (Negative) 07/02/18 12:36 Urine Ketones Negative (Negative) 07/02/18 12:36 Urine Blood 3+ (Negative) A 07/02/18 12:36 Urine Nitrate Negative (Negative) 07/02/18 12:36 Urine Bilirubin Negative (Negative) 07/02/18 12:36 Urine Urobilinogen Negative (Negative) 07/02/18 12:36 Ur Leukocyte Esterase 1+ (Negative) A 07/02/18 12:36 Urine WBC (Auto) 2+(11-20/hpf) (Absent) A 07/02/18 12:36 Urine RBC (Auto) 3+(>10/hpf) (Absent) A 07/02/18 12:36 Ur Squamous Epith Cells Present (Absent) A 07/02/18 12:36 Urine Bacteria Absent (Absent) 07/02/18 12:36 Hyaline Casts Present (Absent) A 07/02/18 12:36 Ur Random Creatinine 213.53 mg/dL 07/02/18 12:36 Ur Random Sodium < 18 mmol/L 07/02/18 12:36 Urine Glucose Negative (Negative) 07/02/18 12:36
[2018-07-03 12:23] LABS: Urine Appearance Clear; Urine Blood 2+ (Negative); Urine Color Yellow; Urine Ketones Negative (Negative); Urine Protein Negative (Negative); Urine Red Blood Cell 3+(>10/hpf) (Absent); Urine Specific Gravity 1.015 (1.010-1.030); Urine Urobilinogen Negative (Negative); Urine White Blood Cell Trace(0-5/hpf) (Absent)
--- NOTE | 2018-07-03 14:40 | PN ---
Progress Note - Progress Note Date of Service: 07/03/18 Note: I saw Al a couple times today. He was moved to telemetry as he went into rapid AFib last night. He has improved now. He is still having alot of pain in his hip and groin. He no longer has numbness in his leg. He may have some numbness in his groin crease. He is very limited in his movement by his pain, any movement of his knee or hip hurts tremendously. I'm unsure of why he is so painful.
--- NOTE | 2018-07-03 15:16 | RAD ---
Indication: Unable to bear weight postop day 2 following RIGHT total hip replacement. Comparison: July 01, 2018 and February 28, 2018 Technique: AP pelvis and crosstable lateral view RIGHT hip. REPORT AND IMPRESSION: #. RIGHT total hip prosthesis is normally located. #. No periprosthetic fracture evident. #. Spurring at the lesser trochanter is chronic. #. Unremarkable soft tissue contours accounting obese body habitus.
--- NOTE | 2018-07-03 16:54 | PN ---
Subjective Date of Service: 07/03/18 Interval History: Pt reports he is feeling better today but continues to have significant pain in his hip. Overnight was transferred to [facility] for rapid afib -> home meds restarted and now in a controlled rate. No CP/SOB. Reports he is tolerating his diet. No Fevers and chills. Objective Active Medications: Acetaminophen (Tylenol Tab*) 650 mg PO Q8H PRN PRN Reason: PAIN OR TEMPERATURE Last Admin: 07/02/18 15:01 Dose: 650 mg Hydrocodone Bitart/Acetaminophen ([place] 5-325 Tab*) 1 tab PO Q4H PRN PRN Reason: PAIN Last Admin: 07/03/18 10:23 Dose: 1 tab Hydrocodone Bitart/Acetaminophen ([place] 5-325 Tab*) 2 tab PO Q4H PRN PRN Reason: Pain - severe Last Admin: 07/03/18 12:11 Dose: 2 tab Apixaban (Eliquis*) 5 mg PO BID [facility] Last Admin: 07/03/18 09:08 Dose: 5 mg Atorvastatin Calcium (Lipitor*) 10 mg PO 2100 [facility] Bisacodyl (Dulcolax Supp*) 10 mg [place] DAILY PRN PRN Reason: constipation Citalopram Hydrobromide (Celexa Tab*) 40 mg PO QAM [facility] Last Admin: 07/03/18 09:08 Dose: 40 mg Clopidogrel Bisulfate (Plavix Tab*) 75 mg PO DAILY [facility] Last Admin: 07/03/18 10:04 Dose: Not Given Cyclobenzaprine HCl (Flexeril Tab*) 5 mg PO TID PRN PRN Reason: SPASMS Dextrose (D50w Syringe 50 Ml*) 12.5 gm IV PUSH .FOR FS < 60 - SS PRN PRN Reason: FS < 60 Diphenhydramine HCl (Benadryl Iv*) 25 mg IV Q6H PRN PRN Reason: itching Docusate Sodium (Colace Cap*) 100 mg PO BID [facility] Last Admin: 07/03/18 09:08 Dose: 100 mg Folic Acid (Folvite Tab*) 1 mg PO QAM [facility] Last Admin: 07/03/18 09:08 Dose: 1 mg Insulin Human Lispro (Humalog*) 0 units SUBCUT [facility]; Protocol Last Admin: 07/03/18 12:01 Dose: Not Given Magnesium Hydroxide (Milk Of Magnesia Liq*) 30 ml PO BID [facility] Last Admin: 07/03/18 09:08 Dose: 30 ml Magnesium Hydroxide (Milk Of Magnesia Liq*) 30 ml PO Q6H PRN PRN Reason: constipation Metoprolol Succinate (Toprol Xl Tab*) 100 mg PO QPM [facility] Metoprolol Succinate (Toprol Xl Tab*) 200 mg PO QAM [facility] Last Admin: 07/03/18 09:08 Dose: 200 mg Morphine Sulfate (Morphine Inj (Syringe)*) 2 mg IV Q2H PRN PRN Reason: PAIN - SEVERE Last Admin: 07/03/18 09:09 Dose: 2 mg Ondansetron HCl (Zofran Inj*) 4 mg IV Q6H PRN PRN Reason: nausea Pantoprazole Sodium (Protonix Tab (Nf)) 40 mg PO QAM [facility] Last Admin: 07/03/18 09:08 Dose: 40 mg Vital Signs - 8 hr 07/03/18 07/03/18 07/03/18 09:09 10:05 10:23 Temperature Pulse Rate Respiratory 20 20 20 Rate Blood Pressure (mmHg) O2 Sat by Pulse Oximetry 07/03/18 07/03/18 07/03/18 12:11 13:46 15:18 Temperature 98.5 F Pulse Rate 73 Respiratory 18 20 16 Rate Blood Pressure 140/79 (mmHg) O2 Sat by Pulse 91 Oximetry 07/03/18 16:16 Temperature 98.2 F Pulse Rate 79 Respiratory 20 Rate Blood Pressure 130/81 (mmHg) O2 Sat by Pulse 93 Oximetry Oxygen Devices in Use Now: None Appearance: A+Ox3 laying in bed in NAD Eyes: No Scleral Icterus, PERRLA Ears/Nose/Mouth/Throat: NL Teeth, Lips, Gums, Mucous Membranes Moist Neck: NL Appearance and Movements; NL JVP Respiratory: Symmetrical Chest Expansion and Respiratory Effort, Clear to Auscultation Cardiovascular: NL Sounds; No Murmurs; No JVD, RRR, No Edema Abdominal: NL Sounds; No Tenderness; No Distention, - - obese Extremities: No Clubbing, Cyanosis, - Skin: No Rash or Ulcers, No Nodules or Sclerosis Neurological: Alert and Oriented x 3, NL Sensation, NL Muscle Strength and Tone Lines/Tubes/Other Access: Clean, Dry and Intact Peripheral IV Nutrition: Taking PO's Result Diagrams: 07/03/18 05:18 07/03/18 05:18 Microbiology and Other Data: Microbiology 07/01/18 22:34 Nasal Screen MRSA (PCR) - Final Nasal Mrsa Detected Assess/Plan/Problems-Billing Assessment: 72 yo female with a PMH of end-stage osteoarthritis, HTN, afib on eliquis, [id number], hx of DVT, CAD s/p stent placement, moderate aortic stenosis, asthma who underwent and elective right total hip arthroplasty on . - Patient Problems (1) History of total right hip arthroplasty Comment: POD #2 Dispo per Ortho PT/OT Pain management, bowel regimen (2) Acute on chronic renal failure Comment: - creatinine improving with IVFs - FENA -> prerenal - repeat BMP in am (3) Hx of coronary artery disease Comment: s/p stent placement Follows with Dr. Cohen outpt Continue BB, ok to hold plavix per preop eval by Dr. Cohen - she will follow up with patient as an outpt (4) Afib Comment: - NSR on tele. Obtain EKG now. - continue home dose BB, eliquis (5) HTN (hypertension) Comment: - restart vasotec, procardia -continue BB at home dose (6) Full code status (7) DVT prophylaxis Comment: Eliquis Status and Disposition: inpatient. Dispo per Orth Team. Hospital medicine co-medical management
[2018-07-03] MEDS: Metoprolol Succinate XL TAB* 100 MG PO SCH (17:58)
[2018-07-03] MEDS: NIFEdipine ER TAB* 30 MG PO SCH (18:59)
[2018-07-03] MEDS: Nortriptyline CAP* 10 MG PO SCH (21:36)
[2018-07-03] MEDS: Enalapril TAB* 5 MG PO SCH (21:36)
[2018-07-03] MEDS: Atorvastatin* 10 MG TAB PO SCH (21:36)
[2018-07-04 05:27] LABS: INR 1.37 (0.77-1.02)
[2018-07-04 05:38] LABS: EGFR Non-African American 72.2 (>60)
[2018-07-04 07:21] LABS: ABS Basophils 0 10^3/ul (0-0.2); ABS Eosinophils 0.3 10^3/ul (0-0.6); ABS Lymphocytes 1.1 10^3/ul (1.0-4.8); ABS Monocytes 0.9 10^3/ul (0-0.8); ABS Neutrophils 4.4 10^3/ul (1.5-7.7); ABS Nucleated RBC 0 10^3/ul; Eosinophil % 4.8 % (0-6); Hematocrit 34 % (42-52); Hemoglobin 11.3 g/dl (14.0-18.0); Lymphocyte % 15.9 % (25-47); Mean Corpuscular HGB Conc 34 g/dl (31-36); Mean Corpuscular Hemoglobin 33 pg (27-31); Mean Corpuscular Volume 99 fL (80-94); Mean Platelet Volume 8.7 um3 (7.4-10.4); Nucleated Red Blood Cells % 0.1; Platelet Count 154 10^3/ul (150-450); Red Blood Count 3.39 10^6/ul (4.00-5.40); Red Cell Distribution Width 15 % (10.5-15); White Blood Count 6.6 10^3/ul (3.5-10.8)
[2018-07-04] MEDS: Citalopram TAB* 40 MG PO SCH (08:55)
[2018-07-04] MEDS: Apixaban* 5 MG TAB PO SCH ×2 (08:55→20:10)
[2018-07-04] MEDS: Folic Acid TAB* 1 MG PO SCH (08:55)
[2018-07-04] MEDS: Insulin LISPRO* 1 UNITS UNIT SUBCUT SCH ×4 (08:55→21:15)
[2018-07-04] MEDS: Enalapril TAB* 5 MG PO SCH ×2 (08:56→20:10)
[2018-07-04] MEDS: HYDROcodone/ACETAMIN 5-325 MG* 1 TAB PO PRN ×3 (08:56→18:23)
[2018-07-04] MEDS: Docusate CAP* 100 MG PO SCH ×3 (08:56→23:48)
[2018-07-04] MEDS: Cyclobenzaprine TAB* 10 MG PO PRN ×3 (08:57→21:20)
[2018-07-04] MEDS: Magnesium Hydroxide LIQ* 30 ML UDC PO SCH ×3 (08:57→23:48)
[2018-07-04] MEDS ORDERED: Potassium Chlor TAB* 10 MEQ TAB.ER PO SCH (09:00)
[2018-07-04] MEDS: CMCS:Pantoprazole TAB (NF) 40 MG TAB PO SCH (09:12)
[2018-07-04] MEDS: Metoprolol Succinate XL TAB* 200 MG TAB.XL PO SCH (09:13)
--- NOTE | 2018-07-04 12:41 | PN ---
Progress Note - Progress Note Date of Service: 07/04/18 SOAP: Subjective: []Patient seen OOB in chair, he states his pain is much improved in the right groin since yesterday. Denies calf pain RLE. Denies SOB, CP, palpitations or dizziness today. Objective: [] Vital Signs Temp 97.7 F 07/04/18 08:15 Pulse 75 07/04/18 08:15 Resp 18 07/04/18 08:57 BP 119/67 07/04/18 08:15 Pulse Ox 94 07/04/18 08:15 Intake & Output 07/03/18 07/04/18 07/04/18 18:59 06:59 18:59 Intake Total 240 810 Output Total 500 325 225 Balance -260 485 -225 Intake: Oral 240 810 Output: Urine 500 325 225 Other: Estimated Void Medium # Bowel Movements 2 Estimated Stool Amount Large Medium # Voids 1 Laboratory Results - last 24 hr 07/03/18 07/03/18 07/04/18 17:52 21:54 05:06 WBC RBC Hgb Hct MCV MCH MCHC RDW Plt Count MPV Neut % (Auto) Lymph % (Auto) [place] % (Auto) Eos % (Auto) Baso % (Auto) Absolute Neuts (auto) Absolute Lymphs (auto) Absolute Monos (auto) Absolute Eos (auto) Absolute Basos (auto) Absolute Nucleated RBC Nucleated RBC % INR (Anticoag Therapy) 1.37 H Sodium Potassium Chloride Carbon Dioxide Anion Gap BUN Creatinine Est GFR ( Amer) Est GFR (Non-Af Amer) BUN/Creatinine Ratio Glucose POC Glucose (mg/dL) 176 H 169 H Calcium 07/04/18 07/04/18 05:06 07:08 WBC 6.6 RBC 3.39 L Hgb 11.3 L Hct 34 L MCV 99 H MCH 33 H MCHC 34 RDW 15 Plt Count 154 MPV 8.7 Neut % (Auto) 65.8 Lymph % (Auto) 15.9 L [place] % (Auto) 13.2 H Eos % (Auto) 4.8 Baso % (Auto) 0.3 Absolute Neuts (auto) 4.4 Absolute Lymphs (auto) 1.1 Absolute Monos (auto) 0.9 H Absolute Eos (auto) 0.3 Absolute Basos (auto) 0 Absolute Nucleated RBC 0 Nucleated RBC % 0.1 INR (Anticoag Therapy) Sodium 131 L Potassium 4.8 Chloride 101 Carbon Dioxide 24 Anion Gap 6 BUN 14 Creatinine 1.01 Est GFR ( Amer) 87.4 Est GFR (Non-Af Amer) 72.2 BUN/Creatinine Ratio 13.9 Glucose 133 H POC Glucose (mg/dL) Calcium 7.8 L Right hip incision benign Calf NT, Thony's negative, mild edema and mild anterior LE erythema, mild warmth mild patch of psoriasis around knee, no evidence of infection. + DF/PF right ankle without pain Thigh soft and non tender Assessment: []s/p RTH POD #3 Right hip pain- much improved Plan: []PT/OT WBAT RLE PMRU eval for possible transfer there this afternoon Eliquis for DVT prophy/ A fib
[2018-07-04] MEDS ORDERED: Vancomycin(*) 1,500 MG in NS 0.9% 250 ML* 250 ML IVPB ONE (17:00)
--- NOTE | 2018-07-04 17:04 | PN ---
Progress Note - Progress Note Date of Service: 07/04/18 Note: I saw Al one more time. He pain is better, and both he and his nurse said he did much better with his therapy. He said the numbness in his foot comes and goes. Of interest, he says he gets the same thing in his other foot, he attributes it to his psoriasis.
[2018-07-04] MEDS ORDERED: Vancomycin per Pharmacy* NOTE FOLLOW UP PRN (17:12)
[2018-07-04] MEDS: NIFEdipine ER TAB* 30 MG PO SCH (18:23)
[2018-07-04] MEDS: Metoprolol Succinate XL TAB* 100 MG PO SCH (18:23)
--- NOTE | 2018-07-04 19:06 | PN ---
Subjective Date of Service: 07/04/18 Interval History: Patient resting in bed , c/o chest pain with movement, deep breath and coughing. reproducible with palpation. no c/o shortness of breath or abd pain . denies v/n/d. denies sweating. Family History: Unchanged from Admission Social History: Unchanged from Admission Past Medical History: Unchanged from Admission Objective Active Medications: Acetaminophen (Tylenol Tab*) 650 mg PO Q8H PRN PRN Reason: PAIN OR TEMPERATURE Last Admin: 07/02/18 15:01 Dose: 650 mg Hydrocodone Bitart/Acetaminophen ([place] 5-325 Tab*) 1 tab PO Q4H PRN PRN Reason: PAIN Last Admin: 07/03/18 10:23 Dose: 1 tab Hydrocodone Bitart/Acetaminophen ([place] 5-325 Tab*) 2 tab PO Q4H PRN PRN Reason: Pain - severe Last Admin: 07/04/18 18:23 Dose: 2 tab Apixaban (Eliquis*) 5 mg PO BID [facility] Last Admin: 07/04/18 08:55 Dose: 5 mg Atorvastatin Calcium (Lipitor*) 10 mg PO 2100 [facility] Last Admin: 07/03/18 21:36 Dose: 10 mg Bisacodyl (Dulcolax Supp*) 10 mg [place] DAILY PRN PRN Reason: constipation Citalopram Hydrobromide (Celexa Tab*) 40 mg PO QAM [facility] Last Admin: 07/04/18 08:55 Dose: 40 mg Cyclobenzaprine HCl (Flexeril Tab*) 5 mg PO TID PRN PRN Reason: SPASMS Last Admin: 07/04/18 13:45 Dose: 5 mg Dextrose (D50w Syringe 50 Ml*) 12.5 gm IV PUSH .FOR FS < 60 - SS PRN PRN Reason: FS < 60 Diphenhydramine HCl (Benadryl Iv*) 25 mg IV Q6H PRN PRN Reason: itching Docusate Sodium (Colace Cap*) 100 mg PO BID [facility] Last Admin: 07/04/18 08:56 Dose: 100 mg Enalapril Maleate (Vasotec Tab*) 10 mg PO BID [facility] Last Admin: 07/04/18 08:56 Dose: 10 mg Folic Acid (Folvite Tab*) 1 mg PO QAM [facility] Last Admin: 07/04/18 08:55 Dose: 1 mg Vancomycin HCl 1,250 mg/ (Sodium Chloride) 250 mls @ 166.667 mls/hr IVPB Q8H [facility]; Protocol Insulin Human Lispro (Humalog*) 0 units SUBCUT ACHS [facility]; Protocol Last Admin: 07/04/18 18:23 Dose: 2 units Magnesium Hydroxide (Milk Of Magnesia Liq*) 30 ml PO BID [facility] Last Admin: 07/04/18 08:57 Dose: Not Given Magnesium Hydroxide (Milk Of Magnesia Liq*) 30 ml PO Q6H PRN PRN Reason: constipation Metoprolol Succinate (Toprol Xl Tab*) 100 mg PO QPM [facility] Last Admin: 07/04/18 18:23 Dose: 100 mg Metoprolol Succinate (Toprol Xl Tab*) 200 mg PO QAM [facility] Last Admin: 07/04/18 09:13 Dose: 200 mg Morphine Sulfate (Morphine Inj (Syringe)*) 2 mg IV Q2H PRN PRN Reason: PAIN - SEVERE Last Admin: 07/03/18 09:09 Dose: 2 mg Nifedipine (Procardia Xl Tab*) 30 mg PO QPM [facility] Last Admin: 07/04/18 18:23 Dose: 30 mg Nortriptyline HCl (Pamelor Cap*) 20 mg PO BEDTIME [facility] Last Admin: 07/03/18 21:36 Dose: 20 mg Ondansetron HCl (Zofran Inj*) 4 mg IV Q6H PRN PRN Reason: nausea Pantoprazole Sodium (Protonix Tab (Nf)) [facility] Last Admin: 07/04/18 09:12 Dose: 40 mg Pharmacy Consult (Vancomycin Per Pharmacy*) 1 note FOLLOW UP . PRN PRN Reason: PER PROTOCOL Pharmacy Profile Note (Vancomycin Trough Check) 1 note FOLLOW UP ONCE ONE Stop: 07/05/18 16:31 Vital Signs - 8 hr 07/04/18 07/04/18 07/04/18 11:34 13:45 16:47 Temperature 97.7 F 97.6 F Pulse Rate 70 72 Respiratory 16 18 Rate Blood Pressure 128/75 118/66 (mmHg) O2 Sat by Pulse 94 98 Oximetry 07/04/18 18:23 Temperature Pulse Rate Respiratory 16 Rate Blood Pressure (mmHg) O2 Sat by Pulse Oximetry Oxygen Devices in Use Now: None Appearance: appears comfortable rsesting in bed. Eyes: No Scleral Icterus Ears/Nose/Mouth/Throat: Clear Oropharnyx, Mucous Membranes Moist Neck: NL Appearance and Movements; NL JVP, Trachea Midline Respiratory: Symmetrical Chest Expansion and Respiratory Effort, Clear to Auscultation Cardiovascular: NL Sounds; No Murmurs; No JVD, No Edema Abdominal: NL Sounds; No Tenderness; No Distention Extremities: No Clubbing, Cyanosis, - - mild swelling in bilat lower ext. Skin: - - right lower ext with redness, no calf tenderness, dressing intact to right hip Neurological: Alert and Oriented x 3 Nutrition: Taking PO's Result Diagrams: 07/05/18 05:25 07/05/18 05:25 Microbiology and Other Data: Microbiology 07/01/18 22:34 Nasal Screen MRSA (PCR) - Final Nasal Mrsa Detected Assess/Plan/Problems-Billing Assessment: 72 yo female with a PMH of end-stage osteoarthritis, HTN, afib on eliquis, [id number], hx of DVT, CAD s/p stent placement, moderate aortic stenosis, asthma who underwent and elective right total hip arthroplasty on . - Patient Problems (1) History of total right hip arthroplasty Current Visit: Yes Status: Acute Code(s): Z96.641 - PRESENCE OF RIGHT ARTIFICIAL HIP JOINT SNOMED Code(s): 898387235481 Comment: POD #3 Dispo per Ortho PT/OT Pain management, bowel regimen per ortho (2) Chest pain Current Visit: Yes Status: Acute Code(s): R07.9 - CHEST PAIN, UNSPECIFIED SNOMED Code(s): 78157325 Comment: c/o chest pain with palpation, deep breath, that is also worse with movement- suspect this is musculoskeletal pain is reproduced with palpation and movement - but given his hx of CAD and stent placement - Will check a troponin and EKG. - denies sweating or shortness of breath. (3) Acute on chronic renal failure Current Visit: Yes Status: Acute Code(s): N17.9 - ACUTE KIDNEY FAILURE, UNSPECIFIED; N18.9 - CHRONIC KIDNEY DISEASE, UNSPECIFIED SNOMED Code(s): 989882526 Comment: - BUN/ creatinine normalized - repeat BMP in am (4) Hx of coronary artery disease Current Visit: Yes Status: Acute Code(s): Z86.79 - PERSONAL HISTORY OF OTHER DISEASES OF THE CIRCULATORY SYSTEM SNOMED Code(s): 670642920 Comment: s/p stent placement Follows with Dr. Cohen outpt Continue BB, ok to hold plavix per preop eval by Dr. Cohen - she will follow up with patient as an outpt (5) Afib Current Visit: Yes Status: Acute Code(s): I48.91 - UNSPECIFIED ATRIAL FIBRILLATION SNOMED Code(s): 61365496 Comment: - NSR on tele. - continue home dose BBjefe (6) HTN (hypertension) Current Visit: Yes Status: Acute Code(s): I10 - ESSENTIAL (PRIMARY) HYPERTENSION SNOMED Code(s): 50909700 Comment: - restart vasotec, procardia -continue BB at home dose (7) DVT prophylaxis Current Visit: Yes Status: Acute Code(s): WSN3395 - SNOMED Code(s): 521681552 Comment: Jefe (8) Full code status Current Visit: Yes Status: Acute Code(s): Z78.9 - OTHER SPECIFIED HEALTH STATUS SNOMED Code(s): 642441030 Status and Disposition: inpatient. Dispo per Orth Team. Hospital medicine co-medical management
[2018-07-04] MEDS: Atorvastatin* 10 MG TAB PO SCH (20:10)
[2018-07-04] MEDS: Nortriptyline CAP* 10 MG PO SCH (20:10)
[2018-07-05] MEDS: Vancomycin(*) 1,250 MG in NS 0.9% 250 ML* 250 ML IVPB SCH ×3 (01:19→18:59)
[2018-07-05] MEDS: HYDROcodone/ACETAMIN 5-325 MG* 1 TAB PO PRN ×4 (03:21→21:22)
[2018-07-05 05:40] LABS: Hematocrit 34 % (42-52); Hemoglobin 11.3 g/dl (14.0-18.0); Mean Platelet Volume 8.6 um3 (7.4-10.4); Platelet Count 218 10^3/ul (150-450)
[2018-07-05 05:50] LABS: INR 1.29 (0.77-1.02)
[2018-07-05 06:00] LABS: EGFR Non-African American 78.4 (>60)
[2018-07-05] MEDS: Apixaban* 5 MG TAB PO SCH ×2 (08:20→21:22)
[2018-07-05] MEDS: Insulin LISPRO* 1 UNITS UNIT SUBCUT SCH ×4 (08:21→22:15)
[2018-07-05] MEDS: Metoprolol Succinate XL TAB* 200 MG TAB.XL PO SCH (08:21)
[2018-07-05] MEDS: Docusate CAP* 100 MG PO SCH ×2 (08:21→21:22)
[2018-07-05] MEDS: Citalopram TAB* 40 MG PO SCH (08:21)
[2018-07-05] MEDS: Folic Acid TAB* 1 MG PO SCH (08:21)
[2018-07-05] MEDS: CMCS:Pantoprazole TAB (NF) 40 MG TAB PO SCH (08:22)
[2018-07-05] MEDS: Magnesium Hydroxide LIQ* 30 ML UDC PO SCH ×2 (08:22→21:23)
[2018-07-05] MEDS: Enalapril TAB* 5 MG PO SCH ×2 (08:22→21:22)
--- NOTE | 2018-07-05 15:19 | PN ---
Subjective Date of Service: 07/05/18 Interval History: Patient sitting in the chair, reports feeling better today. Continues to c/o upper chest tenderness with movement. reports that pain is improved today. Denies shortness of breath. denies abd pain n/v/d. Family History: Unchanged from Admission Social History: Unchanged from Admission Past Medical History: Unchanged from Admission Objective Active Medications: Acetaminophen (Tylenol Tab*) 650 mg PO Q8H PRN PRN Reason: PAIN OR TEMPERATURE Last Admin: 07/02/18 15:01 Dose: 650 mg Hydrocodone Bitart/Acetaminophen ([place] 5-325 Tab*) 1 tab PO Q4H PRN PRN Reason: PAIN Last Admin: 07/03/18 10:23 Dose: 1 tab Hydrocodone Bitart/Acetaminophen ([place] 5-325 Tab*) 2 tab PO Q4H PRN PRN Reason: Pain - severe Last Admin: 07/05/18 12:44 Dose: 2 tab Apixaban (Eliquis*) 5 mg PO BID [facility] Last Admin: 07/05/18 08:20 Dose: 5 mg Atorvastatin Calcium (Lipitor*) 10 mg PO 2100 [facility] Last Admin: 07/04/18 20:10 Dose: 10 mg Bisacodyl (Dulcolax Supp*) 10 mg [place] DAILY PRN PRN Reason: constipation Citalopram Hydrobromide (Celexa Tab*) 40 mg PO QAM [facility] Last Admin: 07/05/18 08:21 Dose: 40 mg Cyclobenzaprine HCl (Flexeril Tab*) 5 mg PO TID PRN PRN Reason: SPASMS Last Admin: 07/04/18 21:20 Dose: 5 mg Dextrose (D50w Syringe 50 Ml*) 12.5 gm IV PUSH .FOR FS < 60 - SS PRN PRN Reason: FS < 60 Diphenhydramine HCl (Benadryl Iv*) 25 mg IV Q6H PRN PRN Reason: itching Docusate Sodium (Colace Cap*) 100 mg PO BID [facility] Last Admin: 07/05/18 08:21 Dose: 100 mg Enalapril Maleate (Vasotec Tab*) 10 mg PO BID [facility] Last Admin: 07/05/18 08:22 Dose: 10 mg Folic Acid (Folvite Tab*) 1 mg PO QAM [facility] Last Admin: 07/05/18 08:21 Dose: 1 mg Vancomycin HCl 1,250 mg/ (Sodium Chloride) 250 mls @ 166.667 mls/hr IVPB Q8H [facility]; Protocol Last Admin: 07/05/18 08:21 Dose: 166.667 mls/hr Insulin Human Lispro (Humalog*) 0 units SUBCUT ACHS [facility]; Protocol Last Admin: 07/05/18 12:10 Dose: 2 units Magnesium Hydroxide (Milk Of Magnesia Liq*) 30 ml PO BID [facility] Last Admin: 07/05/18 08:22 Dose: Not Given Magnesium Hydroxide (Milk Of Magnesia Liq*) 30 ml PO Q6H PRN PRN Reason: constipation Metoprolol Succinate (Toprol Xl Tab*) 100 mg PO QPM [facility] Last Admin: 07/04/18 18:23 Dose: 100 mg Metoprolol Succinate (Toprol Xl Tab*) 200 mg PO QAM [facility] Last Admin: 07/05/18 08:21 Dose: 200 mg Morphine Sulfate (Morphine Inj (Syringe)*) 2 mg IV Q2H PRN PRN Reason: PAIN - SEVERE Last Admin: 07/03/18 09:09 Dose: 2 mg Nifedipine (Procardia Xl Tab*) 30 mg PO QPM [facility] Last Admin: 07/04/18 18:23 Dose: 30 mg Nortriptyline HCl (Pamelor Cap*) 20 mg PO BEDTIME [facility] Last Admin: 07/04/18 20:10 Dose: 20 mg Ondansetron HCl (Zofran Inj*) 4 mg IV Q6H PRN PRN Reason: nausea Pantoprazole Sodium (Protonix Tab (Nf)) 40 mg PO QAM [facility] Last Admin: 07/05/18 08:22 Dose: 40 mg Pharmacy Consult (Vancomycin Per Pharmacy*) 1 note FOLLOW UP . PRN PRN Reason: PER PROTOCOL Pharmacy Profile Note (Vancomycin Trough Check) 1 note FOLLOW UP ONCE ONE Stop: 07/05/18 16:31 Vital Signs - 8 hr 07/05/18 07/05/18 07/05/18 07:36 08:00 08:22 Temperature 97.9 F Pulse Rate 70 Respiratory 18 18 18 Rate Blood Pressure 127/70 (mmHg) O2 Sat by Pulse 93 Oximetry 07/05/18 07/05/18 07/05/18 11:15 12:10 12:44 Temperature 97.5 F Pulse Rate 64 Respiratory 18 18 18 Rate Blood Pressure 116/74 (mmHg) O2 Sat by Pulse 98 Oximetry Oxygen Devices in Use Now: None Appearance: appears comfortable sitting in the chair, no acute distress Eyes: No Scleral Icterus, PERRLA Ears/Nose/Mouth/Throat: Clear Oropharnyx, Mucous Membranes Moist Neck: NL Appearance and Movements; NL JVP, Trachea Midline Respiratory: Symmetrical Chest Expansion and Respiratory Effort, Clear to Auscultation Cardiovascular: NL Sounds; No Murmurs; No JVD, - - mild edema to lower ext Abdominal: NL Sounds; No Tenderness; No Distention Extremities: No Edema, No Clubbing, Cyanosis, - Skin: - - right lower ext with redness, no calf tenderness, dressing intact to right hip Neurological: Alert and Oriented x 3 Nutrition: Taking PO's Result Diagrams: 07/05/18 05:25 07/05/18 05:25 Microbiology and Other Data: Microbiology 07/01/18 22:34 Nasal Screen MRSA (PCR) - Final Nasal Mrsa Detected Assess/Plan/Problems-Billing Assessment: 72 yo female with a PMH of end-stage osteoarthritis, HTN, afib on eliquis, [id number], hx of DVT, CAD s/p stent placement, moderate aortic stenosis, asthma who underwent and elective right total hip arthroplasty on . - Patient Problems (1) History of total right hip arthroplasty Current Visit: Yes Status: Acute Code(s): Z96.641 - PRESENCE OF RIGHT ARTIFICIAL HIP JOINT SNOMED Code(s): 788412014116 Comment: POD #4 Dispo per Ortho PT/OT Pain management, bowel regimen per ortho (2) Chest pain Current Visit: Yes Status: Acute Code(s): R07.9 - CHEST PAIN, UNSPECIFIED SNOMED Code(s): 56702613 Comment: reports pain is improved today - chest pain with palpation, deep breath, that is also worse with movement- suspect this is musculoskeletal pain is reproduced with palpation and movement - Troponin negative - EKG (3) Acute on chronic renal failure Current Visit: Yes Status: Acute Code(s): N17.9 - ACUTE KIDNEY FAILURE, UNSPECIFIED; N18.9 - CHRONIC KIDNEY DISEASE, UNSPECIFIED SNOMED Code(s): 076249816 Comment: - BUN/ creatinine normalized - repeat BMP in am (4) Hx of coronary artery disease Current Visit: Yes Status: Acute Code(s): Z86.79 - PERSONAL HISTORY OF OTHER DISEASES OF THE CIRCULATORY SYSTEM SNOMED Code(s): 817359959 Comment: s/p stent placement Follows with Dr. Cohen outpt Continue BB, ok to hold plavix per preop eval by Dr. Cohen - she will follow up with patient as an outpt (5) Afib Current Visit: Yes Status: Acute Code(s): I48.91 - UNSPECIFIED ATRIAL FIBRILLATION SNOMED Code(s): 81407197 Comment: - NSR on tele. - continue home dose BB, eliquis (6) HTN (hypertension) Current Visit: Yes Status: Acute Code(s): I10 - ESSENTIAL (PRIMARY) HYPERTENSION SNOMED Code(s): 40290487 Comment: stable - restart vasotec, procardia -continue BB at home dose (7) DVT prophylaxis Current Visit: Yes Status: Acute Code(s): DPT5948 - SNOMED Code(s): 505194525 Comment: Sharif (8) Full code status Current Visit: Yes Status: Acute Code(s): Z78.9 - OTHER SPECIFIED HEALTH STATUS SNOMED Code(s): 515459989 Status and Disposition: inpatient. Dispo per Orth Team. Hospital medicine co-medical management
[2018-07-05] MEDS ORDERED: Magnesium Sulfate 2 GM IV* 2 GM/50 ML BAG IVPB ONE (15:23)
--- NOTE | 2018-07-05 16:10 | PN ---
Progress Note - Progress Note Date of Service: 07/05/18 SOAP: Subjective: Pt seen and examined sitting comfortably in chair. No complaint of pain. Denies CP, SOB, F/C Vital Signs: Temp Pulse Resp BP Pulse Ox 97.5 F 64 18 116/74 98 07/05/18 12:10 07/05/18 12:10 07/05/18 12:44 07/05/18 12:10 07/05/18 12:10 Laboratory Last Values WBC 6.6 10^3/ul (3.5-10.8) 07/04/18 07:08 RBC 3.39 10^6/ul (4.00-5.40) L 07/04/18 07:08 Hgb 11.3 g/dl (14.0-18.0) L 07/05/18 05:25 Hct 34 % (42-52) L 07/05/18 05:25 MCV 99 fL (80-94) H 07/04/18 07:08 MCH 33 pg (27-31) H 07/04/18 07:08 MCHC 34 g/dl (31-36) 07/04/18 07:08 RDW 15 % (10.5-15) 07/04/18 07:08 Plt Count 218 10^3/ul (150-450) 07/05/18 05:25 MPV 8.6 um3 (7.4-10.4) 07/05/18 05:25 Neut % (Auto) 65.8 % (38-83) 07/04/18 07:08 Lymph % (Auto) 15.9 % (25-47) L 07/04/18 07:08 [place] % (Auto) 13.2 % (0-7) H 07/04/18 07:08 Eos % (Auto) 4.8 % (0-6) 07/04/18 07:08 Baso % (Auto) 0.3 % (0-2) 07/04/18 07:08 Absolute Neuts (auto) 4.4 10^3/ul (1.5-7.7) 07/04/18 07:08 Absolute Lymphs (auto) 1.1 10^3/ul (1.0-4.8) 07/04/18 07:08 Absolute Monos (auto) 0.9 10^3/ul (0-0.8) H 07/04/18 07:08 Absolute Eos (auto) 0.3 10^3/ul (0-0.6) 07/04/18 07:08 Absolute Basos (auto) 0 10^3/ul (0-0.2) 07/04/18 07:08 Absolute Nucleated RBC 0 10^3/ul 07/04/18 07:08 Nucleated RBC % 0.1 07/04/18 07:08 INR (Anticoag Therapy) 1.29 (0.77-1.02) H 07/05/18 05:25 Sodium 136 mmol/L (135-145) 07/05/18 05:25 Potassium 4.7 mmol/L (3.5-5.0) 07/05/18 05:25 Chloride 101 mmol/L (101-111) 07/05/18 05:25 Carbon Dioxide 29 mmol/L (22-32) 07/05/18 05:25 Anion Gap 6 mmol/L (2-11) 07/05/18 05:25 BUN 14 mg/dL (6-24) 07/05/18 05:25 Creatinine 0.94 mg/dL (0.67-1.17) 07/05/18 05:25 Est GFR ( Amer) 94.9 (>60) 07/05/18 05:25 Est GFR (Non-Af Amer) 78.4 (>60) 07/05/18 05:25 BUN/Creatinine Ratio 14.9 (8-20) 07/05/18 05:25 Glucose 165 mg/dL (70-100) H 07/05/18 05:25 POC Glucose (mg/dL) 175 mg/dL (70-100) H 07/05/18 11:58 Lactic Acid 1.4 mmol/L (0.5-2.0) 07/03/18 00:29 Calcium 8.3 mg/dL (8.6-10.3) L 07/05/18 05:25 Magnesium 1.8 mg/dL (1.9-2.7) L 07/05/18 05:25 Troponin I 0.00 ng/mL (<0.04) 07/04/18 19:48 TSH 0.77 mcIU/mL (0.34-5.60) 07/02/18 22:36 Urine Color Yellow 07/03/18: Urine Appearance Clear 07/03/18: Urine pH 5.0 (5-9) 07/03/18: Ur Specific [place] 1.015 (1.010-1.030) 07/03/18: Urine Protein Negative (Negative) 07/03/18: Urine Ketones Negative (Negative) 07/03/18: Urine Blood 2+ (Negative) A 07/03/18 Urine Nitrate Negative (Negative) 07/03/18: Urine Bilirubin Negative (Negative) 07/03/18: Urine Urobilinogen Negative (Negative) 07/03/18 Ur Leukocyte Esterase Negative (Negative) 07/03/18 Urine WBC (Auto) Trace(0-5/hpf) (Absent) 07/03/18: Urine RBC (Auto) 3+(>10/hpf) (Absent) A 07/03/18: Ur Squamous Epith Cells Present (Absent) A 07/02/18 12:36 Urine Bacteria Absent (Absent) 07/03/18 Hyaline Casts Present (Absent) A 07/02/18 12:36 Ur Random Creatinine 213.53 mg/dL 07/02/18 12:36 Ur Random Sodium < 18 mmol/L 07/02/18 12:36 Urine Glucose Negative (Negative) 07/03/18 09:29 Objective: Dressing C/D/I, Calves soft, nontender. +edema. Sensation intact to light touch distally. 2+ DP pulses Assessment: s/p Right TEJAS POD #4 Plan: OOB PT/OT Pain control DVT prophylaxis - Eliquis Will need referral to SNF Saturday
[2018-07-05] MEDS ORDERED: Vancomycin Trough Check NOTE FOLLOW UP ONE (16:30)
[2018-07-05] MEDS: Metoprolol Succinate XL TAB* 100 MG PO SCH (17:50)
[2018-07-05] MEDS: NIFEdipine ER TAB* 30 MG PO SCH (17:50)
[2018-07-05] MEDS: Atorvastatin* 10 MG TAB PO SCH (21:22)
[2018-07-05] MEDS: Nortriptyline CAP* 10 MG PO SCH (21:22)
[2018-07-06] MEDS: Vancomycin(*) 1,000 MG in NS 0.9% 250 ML* 250 ML IVPB SCH ×3 (04:19→20:45)
[2018-07-06] MEDS: HYDROcodone/ACETAMIN 5-325 MG* 1 TAB PO PRN ×3 (05:34→17:37)
[2018-07-06 05:48] LABS: Hematocrit 34 % (42-52); Hemoglobin 11.4 g/dl (14.0-18.0); Mean Platelet Volume 8.1 um3 (7.4-10.4); Platelet Count 249 10^3/ul (150-450)
[2018-07-06 05:54] LABS: INR 1.26 (0.77-1.02)
[2018-07-06] MEDS: Insulin LISPRO* 1 UNITS UNIT SUBCUT SCH ×4 (08:14→21:39)
[2018-07-06] MEDS: Apixaban* 5 MG TAB PO SCH ×2 (08:15→20:37)
[2018-07-06] MEDS: Metoprolol Succinate XL TAB* 200 MG TAB.XL PO SCH (08:16)
[2018-07-06] MEDS: CMCS:Pantoprazole TAB (NF) 40 MG TAB PO SCH (08:17)
[2018-07-06] MEDS: Docusate CAP* 100 MG PO SCH ×2 (08:17→20:37)
[2018-07-06] MEDS: Enalapril TAB* 5 MG PO SCH ×2 (08:17→20:37)
[2018-07-06] MEDS: Magnesium Hydroxide LIQ* 30 ML UDC PO SCH ×2 (08:17→20:53)
[2018-07-06] MEDS: Citalopram TAB* 40 MG PO SCH (08:17)
[2018-07-06] MEDS: Folic Acid TAB* 1 MG PO SCH (08:17)
--- NOTE | 2018-07-06 16:08 | PN ---
Subjective Date of Service: 07/06/18 Interval History: reports that hip pain is controlled. no c/o chest pain or shortness of breath. Patient heart rhythm in rate controlled a-fib, patient denies shortness or symptoms with the afib. denies calf pain. right lower leg redness is improving. denies abd pain n/v/d. Family History: Unchanged from Admission Social History: Unchanged from Admission Past Medical History: Unchanged from Admission Objective Active Medications: Acetaminophen (Tylenol Tab*) 650 mg PO Q8H PRN PRN Reason: PAIN OR TEMPERATURE Last Admin: 07/02/18 15:01 Dose: 650 mg Hydrocodone Bitart/Acetaminophen ([place] 5-325 Tab*) 1 tab PO Q4H PRN PRN Reason: PAIN Last Admin: 07/03/18 10:23 Dose: 1 tab Hydrocodone Bitart/Acetaminophen ([place] 5-325 Tab*) 2 tab PO Q4H PRN PRN Reason: Pain - severe Last Admin: 07/06/18 12:53 Dose: 2 tab Apixaban (Eliquis*) 5 mg PO BID [facility] Last Admin: 07/06/18 08:15 Dose: 5 mg Atorvastatin Calcium (Lipitor*) 10 mg PO 2100 [facility] Last Admin: 07/05/18 21:22 Dose: 10 mg Bisacodyl (Dulcolax Supp*) 10 mg [place] DAILY PRN PRN Reason: constipation Citalopram Hydrobromide (Celexa Tab*) 40 mg PO QAM [facility] Last Admin: 07/06/18 08:17 Dose: 40 mg Cyclobenzaprine HCl (Flexeril Tab*) 5 mg PO TID PRN PRN Reason: SPASMS Last Admin: 07/04/18 21:20 Dose: 5 mg Dextrose (D50w Syringe 50 Ml*) 12.5 gm IV PUSH .FOR FS < 60 - SS PRN PRN Reason: FS < 60 Diphenhydramine HCl (Benadryl Iv*) 25 mg IV Q6H PRN PRN Reason: itching Docusate Sodium (Colace Cap*) 100 mg PO BID [facility] Last Admin: 07/06/18 08:17 Dose: 100 mg Enalapril Maleate (Vasotec Tab*) 10 mg PO BID [facility] Last Admin: 07/06/18 08:17 Dose: 10 mg Folic Acid (Folvite Tab*) 1 mg PO QAM [facility] Last Admin: 07/06/18 08:17 Dose: 1 mg Vancomycin HCl 1,000 mg/ (Sodium Chloride) 250 mls @ 166.667 mls/hr IVPB Q8H [facility]; Protocol Last Admin: 07/06/18 12:45 Dose: 166.667 mls/hr Insulin Human Lispro (Humalog*) 0 units SUBCUT ACHS [facility]; Protocol Last Admin: 07/06/18 12:52 Dose: 2 units Magnesium Hydroxide (Milk Of Magnesia Liq*) 30 ml PO BID [facility] Last Admin: 07/06/18 08:17 Dose: Not Given Magnesium Hydroxide (Milk Of Magnesia Liq*) 30 ml PO Q6H PRN PRN Reason: constipation Metoprolol Succinate (Toprol Xl Tab*) 100 mg PO QPM [facility] Last Admin: 07/05/18 17:50 Dose: 100 mg Metoprolol Succinate (Toprol Xl Tab*) 200 mg PO QAM [facility] Last Admin: 07/06/18 08:16 Dose: 200 mg Morphine Sulfate (Morphine Inj (Syringe)*) 2 mg IV Q2H PRN PRN Reason: PAIN - SEVERE Last Admin: 07/03/18 09:09 Dose: 2 mg Nifedipine (Procardia Xl Tab*) 30 mg PO QPM [facility] Last Admin: 07/05/18 17:50 Dose: 30 mg Nortriptyline HCl (Pamelor Cap*) 20 mg PO BEDTIME [facility] Last Admin: 07/05/18 21:22 Dose: 20 mg Ondansetron HCl (Zofran Inj*) 4 mg IV Q6H PRN PRN Reason: nausea Pantoprazole Sodium (Protonix Tab (Nf)) 40 mg PO QAM [facility] Last Admin: 07/06/18 08:17 Dose: 40 mg Pharmacy Consult (Vancomycin Per Pharmacy*) 1 note FOLLOW UP . PRN PRN Reason: PER PROTOCOL Pharmacy Profile Note (Vancomycin Trough Check) 1 note FOLLOW UP ONCE ONE Stop: 07/07/18 11:31 Vital Signs - 8 hr 07/06/18 07/06/18 07/06/18 08:08 12:29 12:53 Temperature 97.8 F Pulse Rate 100 Respiratory 18 16 20 Rate Blood Pressure 119/78 (mmHg) O2 Sat by Pulse 97 Oximetry Oxygen Devices in Use Now: None Appearance: appears comfortable resting in bed. no acute distress. Eyes: No Scleral Icterus Ears/Nose/Mouth/Throat: Clear Oropharnyx, Mucous Membranes Moist Neck: NL Appearance and Movements; NL JVP, Trachea Midline Respiratory: Symmetrical Chest Expansion and Respiratory Effort, Clear to Auscultation Cardiovascular: NL Sounds; No Murmurs; No JVD, No Edema Abdominal: NL Sounds; No Tenderness; No Distention Extremities: No Edema, No Clubbing, Cyanosis, - - pedal pulses +2 bilat Skin: No Rash or Ulcers, - - redness noted to right lower leg improving, dressing intact to right hip Neurological: Alert and Oriented x 3 Nutrition: Taking PO's Result Diagrams: 07/06/18 05:02 07/05/18 05:25 Microbiology and Other Data: Microbiology 07/01/18 22:34 Nasal Screen MRSA (PCR) - Final Nasal Mrsa Detected Assess/Plan/Problems-Billing Assessment: 72 yo female with a PMH of end-stage osteoarthritis, HTN, afib on eliquis, [id number], hx of DVT, CAD s/p stent placement, moderate aortic stenosis, asthma who underwent and elective right total hip arthroplasty on . - Patient Problems (1) History of total right hip arthroplasty Current Visit: Yes Status: Acute Code(s): Z96.641 - PRESENCE OF RIGHT ARTIFICIAL HIP JOINT SNOMED Code(s): 782538610699 Comment: POD #5 Dispo per Ortho PT/OT Pain management, bowel regimen per ortho (2) Chest pain Current Visit: Yes Status: Acute Code(s): R07.9 - CHEST PAIN, UNSPECIFIED SNOMED Code(s): 63197137 Comment: no reports of chest pain today chest pain was associatred with palpation, deep breath, that is also worse with movement- suspect this is musculoskeletal pain is reproduced with palpation and movement - Troponin negative - EKG SR with no ST changes (3) Acute on chronic renal failure Current Visit: Yes Status: Acute Code(s): N17.9 - ACUTE KIDNEY FAILURE, UNSPECIFIED; N18.9 - CHRONIC KIDNEY DISEASE, UNSPECIFIED SNOMED Code(s): 111364320 Comment: - BUN/ creatinine normalized - repeat BMP in am (4) Hx of coronary artery disease Current Visit: Yes Status: Acute Code(s): Z86.79 - PERSONAL HISTORY OF OTHER DISEASES OF THE CIRCULATORY SYSTEM SNOMED Code(s): 492476262 Comment: s/p stent placement Follows with Dr. Cohen outpt Continue BB, ok to hold plavix per preop eval by Dr. Cohen - she will follow up with patient as an outpt (5) Afib Current Visit: Yes Status: Acute Code(s): I48.91 - UNSPECIFIED ATRIAL FIBRILLATION SNOMED Code(s): 46881398 Comment: - afib on - -100 - continue home dose BB, eliquis (6) HTN (hypertension) Current Visit: Yes Status: Acute Code(s): I10 - ESSENTIAL (PRIMARY) HYPERTENSION SNOMED Code(s): 85653115 Comment: stable - restart vasotec, procardia -continue BB at home dose (7) DVT prophylaxis Current Visit: Yes Status: Acute Code(s): EOE0753 - SNOMED Code(s): 735723690 Comment: Sharif (8) Full code status Current Visit: Yes Status: Acute Code(s): Z78.9 - OTHER SPECIFIED HEALTH STATUS SNOMED Code(s): 202624931 Status and Disposition: inpatient. Dispo per Orth Team. Hospital medicine co-medical management
[2018-07-06] MEDS: NIFEdipine ER TAB* 30 MG PO SCH (17:37)
[2018-07-06] MEDS: Metoprolol Succinate XL TAB* 100 MG PO SCH (17:37)
[2018-07-06] MEDS: Nortriptyline CAP* 10 MG PO SCH (20:36)
[2018-07-06] MEDS: Atorvastatin* 10 MG TAB PO SCH (20:37)
[2018-07-07] MEDS: HYDROcodone/ACETAMIN 5-325 MG* 1 TAB PO PRN ×3 (04:25→23:39)
[2018-07-07] MEDS: Vancomycin(*) 1,000 MG in NS 0.9% 250 ML* 250 ML IVPB SCH ×3 (04:27→20:58)
[2018-07-07] MEDS: Enalapril TAB* 5 MG PO SCH ×2 (08:41→20:44)
[2018-07-07] MEDS: Metoprolol Succinate XL TAB* 200 MG TAB.XL PO SCH (08:42)
[2018-07-07] MEDS: Folic Acid TAB* 1 MG PO SCH (08:42)
[2018-07-07] MEDS: Apixaban* 5 MG TAB PO SCH ×2 (08:42→20:44)
[2018-07-07] MEDS: Citalopram TAB* 40 MG PO SCH (08:42)
[2018-07-07] MEDS: Docusate CAP* 100 MG PO SCH ×2 (08:42→20:44)
[2018-07-07] MEDS: CMCS:Pantoprazole TAB (NF) 40 MG TAB PO SCH (08:42)
[2018-07-07] MEDS: Magnesium Hydroxide LIQ* 30 ML UDC PO SCH ×2 (08:43→20:20)
[2018-07-07] MEDS: Insulin LISPRO* 1 UNITS UNIT SUBCUT SCH ×4 (09:09→20:56)
--- NOTE | 2018-07-07 10:05 | PN ---
Subjective Date of Service: 07/07/18 Interval History: Pt resting comfortably in chair, says pain is well controlled on current regimen. Denies chest pain, shortness of breath, palpitations, abdominal pain, N /V/D/C, dizziness, headache, dysuria. Does endorse numbness/tingling in RLE that occurs with movement. Family History: Unchanged from Admission Social History: Unchanged from Admission Past Medical History: Unchanged from Admission Objective Active Medications: Acetaminophen (Tylenol Tab*) 650 mg PO Q8H PRN PRN Reason: PAIN OR TEMPERATURE Last Admin: 07/02/18 15:01 Dose: 650 mg Hydrocodone Bitart/Acetaminophen ([place] 5-325 Tab*) 1 tab PO Q4H PRN PRN Reason: PAIN Last Admin: 07/03/18 10:23 Dose: 1 tab Hydrocodone Bitart/Acetaminophen ([place] 5-325 Tab*) 2 tab PO Q4H PRN PRN Reason: Pain - severe Last Admin: 07/07/18 09:09 Dose: 2 tab Apixaban (Eliquis*) 5 mg PO BID [facility] Last Admin: 07/07/18 08:42 Dose: 5 mg Atorvastatin Calcium (Lipitor*) 10 mg PO 2100 [facility] Last Admin: 07/06/18 20:37 Dose: 10 mg Bisacodyl (Dulcolax Supp*) 10 mg [place] DAILY PRN PRN Reason: constipation Citalopram Hydrobromide (Celexa Tab*) 40 mg PO QAM [facility] Last Admin: 07/07/18 08:42 Dose: 40 mg Cyclobenzaprine HCl (Flexeril Tab*) 5 mg PO TID PRN PRN Reason: SPASMS Last Admin: 07/04/18 21:20 Dose: 5 mg Dextrose (D50w Syringe 50 Ml*) 12.5 gm IV PUSH .FOR FS < 60 - SS PRN PRN Reason: FS < 60 Diphenhydramine HCl (Benadryl Iv*) 25 mg IV Q6H PRN PRN Reason: itching Docusate Sodium (Colace Cap*) 100 mg PO BID [facility] Last Admin: 07/07/18 08:42 Dose: 100 mg Enalapril Maleate (Vasotec Tab*) 10 mg PO BID [facility] Last Admin: 07/07/18 08:41 Dose: 10 mg Folic Acid (Folvite Tab*) 1 mg PO QAM [facility] Last Admin: 07/07/18 08:42 Dose: 1 mg Vancomycin HCl 1,000 mg/ (Sodium Chloride) 250 mls @ 166.667 mls/hr IVPB Q8H [facility]; Protocol Last Admin: 07/07/18 04:27 Dose: 166.667 mls/hr Insulin Human Lispro (Humalog*) 0 units SUBCUT ACHS [facility]; Protocol Last Admin: 07/07/18 09:09 Dose: 2 units Magnesium Hydroxide (Milk Of Magnesia Liq*) 30 ml PO BID [facility] Last Admin: 07/07/18 08:43 Dose: 30 ml Magnesium Hydroxide (Milk Of Magnesia Liq*) 30 ml PO Q6H PRN PRN Reason: constipation Metoprolol Succinate (Toprol Xl Tab*) 100 mg PO QPM [facility] Last Admin: 07/06/18 17:37 Dose: 100 mg Metoprolol Succinate (Toprol Xl Tab*) [facility] [place] Last Admin: 07/07/18 08:42 Dose: 200 mg Morphine Sulfate (Morphine Inj (Syringe)*) 2 mg IV Q2H PRN PRN Reason: PAIN - SEVERE Last Admin: 07/03/18 09:09 Dose: 2 mg Nifedipine (Procardia Xl Tab*) 30 mg PO QPM [facility] Last Admin: 07/06/18 17:37 Dose: 30 mg Nortriptyline HCl (Pamelor Cap*) 20 mg PO BEDTIME [facility] Last Admin: 07/06/18 20:36 Dose: 20 mg Ondansetron HCl (Zofran Inj*) 4 mg IV Q6H PRN PRN Reason: nausea Pantoprazole Sodium (Protonix Tab (Nf)) 40 mg PO QAM [facility] Last Admin: 07/07/18 08:42 Dose: 40 mg Pharmacy Consult (Vancomycin Per Pharmacy*) 1 note FOLLOW UP . PRN PRN Reason: PER PROTOCOL Pharmacy Profile Note (Vancomycin Trough Check) 1 note FOLLOW UP ONCE ONE Stop: 07/07/18 11:31 Vital Signs - 8 hr 07/07/18 07/07/18 07/07/18 03:33 04:25 08:00 Temperature 97.0 F Pulse Rate 90 Respiratory 17 18 18 Rate Blood Pressure 134/81 (mmHg) O2 Sat by Pulse 97 Oximetry 07/07/18 07/07/18 08:02 09:09 Temperature 98.0 F Pulse Rate 97 Respiratory 18 18 Rate Blood Pressure 151/85 (mmHg) O2 Sat by Pulse 97 Oximetry Oxygen Devices in Use Now: None Eyes: No Scleral Icterus, PERRLA Ears/Nose/Mouth/Throat: NL Teeth, Lips, Gums, Clear Oropharnyx, Mucous Membranes Moist Neck: NL Appearance and Movements; NL JVP, Trachea Midline Respiratory: Symmetrical Chest Expansion and Respiratory Effort, Clear to Auscultation Cardiovascular: NL Sounds; No Murmurs; No JVD, RRR Abdominal: NL Sounds; No Tenderness; No Distention Extremities: No Clubbing, Cyanosis, - - RLE with +1 pitting edema from ankle to knee. Also large area of erythema and warmth over anterior aspect of RLE Skin: No Nodules or Sclerosis Neurological: Alert and Oriented x 3, NL Muscle Strength and Tone, - - Sensation intact to LLE. Sensation diminished to ankle/foot of RLE Lines/Tubes/Other Access: Clean, Dry and Intact Peripheral IV Nutrition: Taking PO's Result Diagrams: 07/06/18 05:02 07/05/18 05:25 Microbiology and Other Data: Microbiology 07/01/18 22:34 Nasal Screen MRSA (PCR) - Final Nasal Mrsa Detected Assess/Plan/Problems-Billing Assessment: 72 yo male with a PMH of end-stage osteoarthritis, HTN, afib on eliquis, [id number], hx of DVT, CAD s/p stent placement, moderate aortic stenosis, asthma who underwent and elective right total hip arthroplasty on . Hospital course complicated by RLE cellulitis - Patient Problems (1) History of total right hip arthroplasty Current Visit: Yes Status: Acute Code(s): Z96.641 - PRESENCE OF RIGHT ARTIFICIAL HIP JOINT SNOMED Code(s): 571801988468 Comment: - POD #6 Dispo per Ortho. - PT/OT - Pain management, bowel regimen per ortho - H/H stable (2) Afib Current Visit: Yes Status: Acute Code(s): I48.91 - UNSPECIFIED ATRIAL FIBRILLATION SNOMED Code(s): 84774154 Comment: - Paroxysmal afib. On eliquis for anticoagulation and metoprolol (200mg QAM, 100mg QPM for rate control) - Currently NSR on tele with rates in the 70s - Follows with Dr Cohen as outpatient (3) Hx of coronary artery disease Current Visit: Yes Status: Acute Code(s): Z86.79 - PERSONAL HISTORY OF OTHER DISEASES OF THE CIRCULATORY SYSTEM SNOMED Code(s): 439704889 Comment: - s/p stent placement - Continue metoprolol - Follows with Dr. Cohen outpt: holding plavix per preop eval by Dr. Cohen - she will follow up with patient as an outpt about resuming (4) HTN (hypertension) Current Visit: Yes Status: Acute Code(s): I10 - ESSENTIAL (PRIMARY) HYPERTENSION SNOMED Code(s): 31395377 Comment: - BP well controlled on enalapril, nifedipine, metoprolol (5) Right leg swelling Current Visit: Yes Status: Acute Code(s): M79.89 - OTHER SPECIFIED SOFT TISSUE DISORDERS SNOMED Code(s): 488858345 Comment: - Right lower extremity is erythmetous and warm with 1+ pitting edema. No drainage/purulence. 2+ pulses and pt able to drsiflex and plantarflex. No pain. - Pt's states that erythema is unchanged from yesterday/perhaps slightly better. - Afebrile w/o leukocytosis - Started on vanco for cellulitis as pt's nose swab was positive for MRSA - Will also do venous ultrasound of RLE was negative for DVT. He is currently anticoagulated on eliquis (6) DVT prophylaxis Current Visit: Yes Status: Acute Code(s): QZB6758 - SNOMED Code(s): 403336464 Comment: - Continue home Eliquis (7) Full code status Current Visit: Yes Status: Acute Code(s): Z78.9 - OTHER SPECIFIED HEALTH STATUS SNOMED Code(s): 324365142 Status and Disposition: Inpatient. Dispo per Orth Team. Hospital medicine co-medical management
[2018-07-07 11:22] LABS: Mean Corpuscular HGB Conc 34 g/dl (31-36); Mean Corpuscular Hemoglobin 33 pg (27-31); Mean Corpuscular Volume 99 fL (80-94); Red Blood Count 3.44 10^6/ul (4.00-5.40); Red Cell Distribution Width 16 % (10.5-15); White Blood Count 6.6 10^3/ul (3.5-10.8)
[2018-07-07] MEDS ORDERED: Vancomycin Trough Check NOTE FOLLOW UP ONE ×2 (11:30→19:30)
--- NOTE | 2018-07-07 12:14 | RAD ---
Indication: Right lower extremity swelling, status post right hip replacement.. Duplex Doppler sonography of the deep venous system of the right lower extremity deep venous system was performed. Bilaterally the common femoral veins appear patent and compressible. Right proximal greater saphenous vein, proximal deep femoral vein, femoral vein, popliteal vein, posterior tibial veins and peroneal veins appear patent and compressible. IMPRESSION: NO EVIDENCE OF DEEP VENOUS THROMBOSIS IS IDENTIFIED.
--- NOTE | 2018-07-07 13:42 | PN ---
Progress Note - Progress Note Date of Service: 07/07/18 SOAP: Subjective: []Patient was seen and examined at bedside. He is feeling better today with less pain of his right hip. Denies CP, SOB, dizziness, nausea. His right lower leg is swollen and red. Objective: []General: Well appearing, NAD, good spirits RLE: Right hip dressing changed, incision CDI without erythema or discharge. Thigh is soft. Sensation intact distally. DF/PF intact. DP2+ Calves supple and nontender without palpable cords. Right calf with erythema and edema anterolaterally. Assessment: s/p Right TEJAS Plan: OOB PT/OT Pain control DVT prophylaxis - Eliis [facility] referral in place, not eligible for LAUREL On vancomycin for possible cellulitis RLE - venous dopplar negative for DVT Vital Signs Temp 97.9 F 07/07/18 12:25 Pulse 72 07/07/18 12:25 Resp 18 07/07/18 12:25 BP 109/70 07/07/18 12:25 Pulse Ox 96 07/07/18 12:25 Intake & Output 07/06/18 07/07/18 07/07/18 18:59 06:59 18:59 Intake Total 472 1050 250 Output Total 200 450 200 Balance 272 600 50 Intake: IV Fluids 292 550 ABX - VANCOMYCIN 272 520 NS (0.9%) 20 30 Oral 180 500 250 Output: Urine 200 450 200 Other: Estimated Void Medium Small # Bowel Movements 1 1 Estimated Stool Amount Medium Small # Voids 1 Laboratory Last Values WBC 6.6 10^3/ul (3.5-10.8) 07/06/18 05:02 RBC 3.44 10^6/ul (4.00-5.40) L 07/06/18 05:02 Hgb 11.4 g/dl (14.0-18.0) L 07/06/18 05:02 Hct 34 % (42-52) L 07/06/18 05:02 MCV 99 fL (80-94) H 07/06/18 05:02 MCH 33 pg (27-31) H 07/06/18 05:02 MCHC 34 g/dl (31-36) 07/06/18 05:02 RDW 16 % (10.5-15) H 07/06/18 05:02 Plt Count 249 10^3/ul (150-450) 07/06/18 05:02 MPV 8.1 um3 (7.4-10.4) 07/06/18 05:02 Neut % (Auto) 65.8 % (38-83) 07/04/18 07:08 Lymph % (Auto) 15.9 % (25-47) L 07/04/18 07:08 [place] % (Auto) 13.2 % (0-7) H 07/04/18 07:08 Eos % (Auto) 4.8 % (0-6) 07/04/18 07:08 Baso % (Auto) 0.3 % (0-2) 07/04/18 07:08 Absolute Neuts (auto) 4.4 10^3/ul (1.5-7.7) 07/04/18 07:08 Absolute Lymphs (auto) 1.1 10^3/ul (1.0-4.8) 07/04/18 07:08 Absolute Monos (auto) 0.9 10^3/ul (0-0.8) H 07/04/18 07:08 Absolute Eos (auto) 0.3 10^3/ul (0-0.6) 07/04/18 07:08 Absolute Basos (auto) 0 10^3/ul (0-0.2) 07/04/18 07:08 Absolute Nucleated RBC 0 10^3/ul 07/04/18 07:08 Nucleated RBC % 0.1 07/04/18 07:08 INR (Anticoag Therapy) 1.26 (0.77-1.02) H 07/06/18 05:02 Sodium 136 mmol/L (135-145) 07/05/18 05:25 Potassium 4.7 mmol/L (3.5-5.0) 07/05/18 05:25 Chloride 101 mmol/L (101-111) 07/05/18 05:25 Carbon Dioxide 29 mmol/L (22-32) 07/05/18 05:25 Anion Gap 6 mmol/L (2-11) 07/05/18 05:25 BUN 14 mg/dL (6-24) 07/05/18 05:25 Creatinine 0.94 mg/dL (0.67-1.17) 07/05/18 05:25 Est GFR ( Amer) 94.9 (>60) 07/05/18 05:25 Est GFR (Non-Af Amer) 78.4 (>60) 07/05/18 05:25 BUN/Creatinine Ratio 14.9 (8-20) 07/05/18 05:25 Glucose 165 mg/dL (70-100) H 07/05/18 05:25 POC Glucose (mg/dL) 212 mg/dL (70-100) H 07/07/18 12:09 Lactic Acid 1.4 mmol/L (0.5-2.0) 07/03/18 00:29 Calcium 8.3 mg/dL (8.6-10.3) L 07/05/18 05:25 Magnesium 1.8 mg/dL (1.9-2.7) L 07/05/18 05:25 Troponin I 0.00 ng/mL (<0.04) 07/04/18 19:48 TSH 0.77 mcIU/mL (0.34-5.60) 07/02/18 22:36 Urine Color Yellow 07/03/18 09:29 Urine Appearance Clear 07/03/18 09:29 Urine pH 5.0 (5-9) 07/03/18 09:29 Ur Specific [place] 1.015 (1.010-1.030) 07/03/18 09:29 Urine Protein Negative (Negative) 07/03/18 09:29 Urine Ketones Negative (Negative) 07/03/18 09:29 Urine Blood 2+ (Negative) A 07/03/18 09: Urine Nitrate Negative (Negative) 07/03/18: Urine Bilirubin Negative (Negative) 07/03/18 09: Urine Urobilinogen Negative (Negative) 07/03/18 09:29 Ur Leukocyte Esterase Negative (Negative) 07/03/18 09:29 Urine WBC (Auto) Trace(0-5/hpf) (Absent) 07/03/18 09:29 Urine RBC (Auto) 3+(>10/hpf) (Absent) A 07/03/18 09:29 Ur Squamous Epith Cells Present (Absent) A 07/02/18 12:36 Urine Bacteria Absent (Absent) 07/03/18 09:29 Hyaline Casts Present (Absent) A 07/02/18 12:36 Ur Random Creatinine 213.53 mg/dL 07/02/18 12:36 Ur Random Sodium < 18 mmol/L 07/02/18 12:36 Urine Glucose Negative (Negative) 07/03/18 09:29 Vancomycin Trough 35.6 mcg/mL H* 07/07/18 11:50
[2018-07-07] MEDS: Metoprolol Succinate XL TAB* 100 MG PO SCH (17:32)
[2018-07-07] MEDS: NIFEdipine ER TAB* 30 MG PO SCH (17:32)
[2018-07-07] MEDS: Atorvastatin* 10 MG TAB PO SCH (20:44)
[2018-07-07] MEDS: Nortriptyline CAP* 10 MG PO SCH (21:00)
[2018-07-08] MEDS: Vancomycin(*) 1,000 MG in NS 0.9% 250 ML* 250 ML IVPB SCH ×2 (07:35→17:42)
[2018-07-08] MEDS: Metoprolol Succinate XL TAB* 200 MG TAB.XL PO SCH (08:18)
[2018-07-08] MEDS: Enalapril TAB* 5 MG PO SCH ×2 (08:18→21:08)
[2018-07-08] MEDS: HYDROcodone/ACETAMIN 5-325 MG* 1 TAB PO PRN ×2 (08:19→17:45)
[2018-07-08] MEDS: CMCS:Pantoprazole TAB (NF) 40 MG TAB PO SCH (08:19)
[2018-07-08] MEDS: Insulin LISPRO* 1 UNITS UNIT SUBCUT SCH ×4 (08:19→21:08)
[2018-07-08] MEDS: Docusate CAP* 100 MG PO SCH ×2 (08:19→21:07)
[2018-07-08] MEDS: Apixaban* 5 MG TAB PO SCH ×2 (08:19→21:08)
[2018-07-08] MEDS: Folic Acid TAB* 1 MG PO SCH (08:19)
[2018-07-08] MEDS: Citalopram TAB* 40 MG PO SCH (08:19)
[2018-07-08] MEDS: Magnesium Hydroxide LIQ* 30 ML UDC PO SCH ×2 (08:20→21:08)
--- NOTE | 2018-07-08 08:46 | PN ---
Subjective Date of Service: 07/08/18 Interval History: Pt is resting comfortable. Pain well controlled on current regimen. Denies headache, dizziness, chest pain, shortness of breath, N/V/D/C, abdominal pain. Does endorse occasional tingling in LLE, but sensation intact and no pain. Family History: Unchanged from Admission Social History: Unchanged from Admission Past Medical History: Unchanged from Admission Objective Active Medications: Acetaminophen (Tylenol Tab*) 650 mg PO Q8H PRN PRN Reason: PAIN OR TEMPERATURE Last Admin: 07/02/18 15:01 Dose: 650 mg Hydrocodone Bitart/Acetaminophen ([place] 5-325 Tab*) 1 tab PO Q4H PRN PRN Reason: PAIN Last Admin: 07/03/18 10:23 Dose: 1 tab Hydrocodone Bitart/Acetaminophen ([place] 5-325 Tab*) 2 tab PO Q4H PRN PRN Reason: Pain - severe Last Admin: 07/08/18 08:19 Dose: 2 tab Apixaban (Eliquis*) 5 mg PO BID [facility] Last Admin: 07/08/18 08:19 Dose: 5 mg Atorvastatin Calcium (Lipitor*) 10 mg PO 2100 [facility] Last Admin: 07/07/18 20:44 Dose: 10 mg Bisacodyl (Dulcolax Supp*) 10 mg [place] DAILY PRN PRN Reason: constipation Citalopram Hydrobromide (Celexa Tab*) 40 mg PO QAM [facility] Last Admin: 07/08/18 08:19 Dose: 40 mg Cyclobenzaprine HCl (Flexeril Tab*) 5 mg PO TID PRN PRN Reason: SPASMS Last Admin: 07/04/18 21:20 Dose: 5 mg Dextrose (D50w Syringe 50 Ml*) 12.5 gm IV PUSH .FOR FS < 60 - SS PRN PRN Reason: FS < 60 Diphenhydramine HCl (Benadryl Iv*) 25 mg IV Q6H PRN PRN Reason: itching Docusate Sodium (Colace Cap*) 100 mg PO BID [facility] Last Admin: 07/08/18 08:19 Dose: 100 mg Enalapril Maleate (Vasotec Tab*) 10 mg PO BID [facility] Last Admin: 07/08/18 08:18 Dose: 10 mg Folic Acid (Folvite Tab*) 1 mg PO QAM [facility] Last Admin: 07/08/18 08:19 Dose: 1 mg Vancomycin HCl 1,000 mg/ (Sodium Chloride) 250 mls @ 166.667 mls/hr IVPB Q12H [facility] Last Admin: 07/08/18 07:35 Dose: 166.667 mls/hr Insulin Human Lispro (Humalog*) 0 units SUBCUT ACHS [facility]; Protocol Last Admin: 07/08/18 08:19 Dose: 2 units Magnesium Hydroxide (Milk Of Magnesia Liq*) 30 ml PO BID [facility] Last Admin: 07/08/18 08:20 Dose: Not Given Magnesium Hydroxide (Milk Of Magnesia Liq*) 30 ml PO Q6H PRN PRN Reason: constipation Metoprolol Succinate (Toprol Xl Tab*) 100 mg PO QPM [facility] Last Admin: 07/07/18 17:32 Dose: 100 mg Metoprolol Succinate (Toprol Xl Tab*) 200 mg PO QAM [facility] Last Admin: 07/08/18 08:18 Dose: 200 mg Morphine Sulfate (Morphine Inj (Syringe)*) 2 mg IV Q2H PRN PRN Reason: PAIN - SEVERE Last Admin: 07/03/18 09:09 Dose: 2 mg Nifedipine (Procardia Xl Tab*) 30 mg PO QPM [facility] Last Admin: 07/07/18 17:32 Dose: 30 mg Nortriptyline HCl (Pamelor Cap*) 20 mg PO BEDTIME [facility] Last Admin: 07/07/18 21:00 Dose: 20 mg Ondansetron HCl (Zofran Inj*) 4 mg IV Q6H PRN PRN Reason: nausea Pantoprazole Sodium (Protonix Tab (Nf)) 40 mg PO [facility] Last Admin: 07/08/18 08:19 Dose: 40 mg Pharmacy Consult (Vancomycin Per Pharmacy*) 1 note FOLLOW UP . PRN PRN Reason: PER PROTOCOL Pharmacy Profile Note (Vancomycin Trough Check) 1 note FOLLOW UP 529 ONE Stop: 07/09/18 05:31 Vital Signs - 8 hr 07/08/18 07/08/18 07/08/18 03:33 04:06 08:19 Temperature 98.1 F Pulse Rate 72 Respiratory 16 18 18 Rate Blood Pressure 134/76 (mmHg) O2 Sat by Pulse 94 Oximetry Oxygen Devices in Use Now: None Eyes: No Scleral Icterus, PERRLA Ears/Nose/Mouth/Throat: NL Teeth, Lips, Gums, Mucous Membranes Moist Neck: NL Appearance and Movements; NL JVP, Trachea Midline Respiratory: Symmetrical Chest Expansion and Respiratory Effort, Clear to Auscultation Abdominal: NL Sounds; No Tenderness; No Distention Skin: No Nodules or Sclerosis, - - Erythema on anterior aspect of both lower extremeties, R>L. Right leg erythema darkening to a deeper red. Still with +1 pitting edema on RLE from foot to knee. Trace edema on LLE. Neurological: Alert and Oriented x 3, NL Sensation, NL Muscle Strength and Tone Nutrition: Taking PO's Result Diagrams: 07/06/18 05:02 07/05/18 05:25 Microbiology and Other Data: Microbiology 07/01/18 22:34 Nasal Screen MRSA (PCR) - Final Nasal Mrsa Detected Assess/Plan/Problems-Billing Assessment: 72 yo male with a PMH of end-stage osteoarthritis, HTN, afib on eliquis, [id number], hx of DVT, CAD s/p stent placement, moderate aortic stenosis, asthma who underwent and elective right total hip arthroplasty on . Hospital course complicated by RLE cellulitis - Patient Problems (1) History of total right hip arthroplasty Current Visit: Yes Status: Acute Code(s): Z96.641 - PRESENCE OF RIGHT ARTIFICIAL HIP JOINT SNOMED Code(s): 596768266057 Comment: - POD #7 Dispo per Ortho. Awaiting bed at [facility] facility. - PT/OT - Pain management, bowel regimen per ortho - H/H stable (2) Afib Current Visit: Yes Status: Acute Code(s): I48.91 - UNSPECIFIED ATRIAL FIBRILLATION SNOMED Code(s): 16975521 Comment: - Paroxysmal afib. On eliquis for anticoagulation and metoprolol (200mg QAM, 100mg QPM for rate control) - Currently NSR on tele with rates in the 70s - Follows with Dr Cohen as outpatient (3) Hx of coronary artery disease Current Visit: Yes Status: Acute Code(s): Z86.79 - PERSONAL HISTORY OF OTHER DISEASES OF THE CIRCULATORY SYSTEM SNOMED Code(s): 285531186 Comment: - s/p stent placement - Continue metoprolol - Follows with Dr. Cohen outpt: holding plavix per preop eval by Dr. Cohen - she will follow up with patient as an outpt about resuming (4) HTN (hypertension) Current Visit: Yes Status: Acute Code(s): I10 - ESSENTIAL (PRIMARY) HYPERTENSION SNOMED Code(s): 16001981 Comment: - BP well controlled on enalapril, nifedipine, metoprolol (5) Cellulitis of right lower extremity Current Visit: Yes Status: Acute Code(s): L03.115 - CELLULITIS OF RIGHT LOWER LIMB SNOMED Code(s): 932291380 Comment: - Right lower extremity is erythmetous and warm with 1+ pitting edema. No drainage/purulence. 2+ pulses and pt able to dorsiflex and plantarflex. No pain. Erythema is not spreading, however is darkening. Pt likely with underlying venous insufficiency. - Venous ultrasound of RLE was negative for DVT. He is currently anticoagulated on eliquis - Afebrile w/o leukocytosis - Continue treatment with vanco for cellulitis as pt's nose swab was positive for MRSA (6) DVT prophylaxis Current Visit: Yes Status: Acute Code(s): CYL9805 - SNOMED Code(s): 069668797 Comment: - Continue home Eliquis (7) Full code status Current Visit: Yes Status: Acute Code(s): Z78.9 - OTHER SPECIFIED HEALTH STATUS SNOMED Code(s): 142751788 Status and Disposition: Inpatient. Dispo per Orth Team. Thank you for this consult. Hospitalist team to sign off at this time. Please contact me with any questions.
--- NOTE | 2018-07-08 11:33 | PN ---
Progress Note - Progress Note Date of Service: 07/08/18 SOAP: Subjective: []Patient seen and examined OOB in chair. Denies any chest pain, shortness of breath, dizziness, nausea. No RLE numbness reported though does report tingling with palpation of the dorsum of the right foot. Objective: [] General: Well appearing, NAD RLE: Right hip dressing changed, incision CDI without erythema or discharge. Thigh is soft. Sensation intact distally. DF/PF intact. DP2+ Calves supple and nontender without palpable cords. Right calf with now only mild erythema anterolaterally and 1+ pitting edema. + bilateral lower legs with hemosiderin deposits Assessment: s/p Right TEJAS Plan: OOB PT/OT Pain control DVT prophylaxis - continue [facility] referral in place, not eligible for [facility]. Awaiting placement. Will not need symponi or IV vancomycin while at rehab facility this should not be a factor in placement. CM and SW aware of this. Currently on IV vancomycin for cellulitis RLE, venous dopplar negative for DVT. Okay to switch to oral antibiotic at discharge, overnight leaving on IV vancomycin to see if swelling further decreases, erythema is much improved. Elevate RLE. Vital Signs Temp 97.5 F 07/08/18 08:23 Pulse 72 07/08/18 08:23 Resp 18 07/08/18 10:22 BP 137/76 07/08/18 08:23 Pulse Ox 97 07/08/18 08:23 Intake & Output 07/07/18 07/08/18 07/08/18 18:59 06:59 18:59 Intake Total 400 1100 50 Output Total 350 150 400 Balance 50 950 -350 Intake: Oral 400 1100 50 Output: Urine 350 150 400 Other: Estimated Void Small Medium # Bowel Movements 1 1 Estimated Stool Amount Small Medium Laboratory Last Values WBC 6.6 10^3/ul (3.5-10.8) 07/06/18 05:02 RBC 3.44 10^6/ul (4.00-5.40) L 07/06/18 05:02 Hgb 11.4 g/dl (14.0-18.0) L 07/06/18 05:02 Hct 34 % (42-52) L 07/06/18 05:02 MCV 99 fL (80-94) H 07/06/18 05:02 MCH 33 pg (27-31) H 07/06/18 05:02 MCHC 34 g/dl (31-36) 07/06/18 05:02 RDW 16 % (10.5-15) H 07/06/18 05:02 Plt Count 249 10^3/ul (150-450) 07/06/18 05:02 MPV 8.1 um3 (7.4-10.4) 07/06/18 05:02 Neut % (Auto) 65.8 % (38-83) 07/04/18 07:08 Lymph % (Auto) 15.9 % (25-47) L 07/04/18 07:08 [place] % (Auto) 13.2 % (0-7) H 07/04/18 07:08 Eos % (Auto) 4.8 % (0-6) 07/04/18 07:08 Baso % (Auto) 0.3 % (0-2) 07/04/18 07:08 Absolute Neuts (auto) 4.4 10^3/ul (1.5-7.7) 07/04/18 07:08 Absolute Lymphs (auto) 1.1 10^3/ul (1.0-4.8) 07/04/18 07:08 Absolute Monos (auto) 0.9 10^3/ul (0-0.8) H 07/04/18 07:08 Absolute Eos (auto) 0.3 10^3/ul (0-0.6) 07/04/18 07:08 Absolute Basos (auto) 0 10^3/ul (0-0.2) 07/04/18 07:08 Absolute Nucleated RBC 0 10^3/ul 07/04/18 07:08 Nucleated RBC % 0.1 07/04/18 07:08 INR (Anticoag Therapy) 1.26 (0.77-1.02) H 07/06/18 05:02 Sodium 136 mmol/L (135-145) 07/05/18 05:25 Potassium 4.7 mmol/L (3.5-5.0) 07/05/18 05:25 Chloride 101 mmol/L (101-111) 07/05/18 05:25 Carbon Dioxide 29 mmol/L (22-32) 07/05/18 05:25 Anion Gap 6 mmol/L (2-11) 07/05/18 05:25 BUN 14 mg/dL (6-24) 07/05/18 05:25 Creatinine 0.94 mg/dL (0.67-1.17) 07/05/18 05:25 Est GFR ( Amer) 94.9 (>60) 07/05/18 05:25 Est GFR (Non-Af Amer) 78.4 (>60) 07/05/18 05:25 BUN/Creatinine Ratio 14.9 (8-20) 07/05/18 05:25 Glucose 165 mg/dL (70-100) H 07/05/18 05:25 POC Glucose (mg/dL) 196 mg/dL (70-100) H 07/08/18 07:24 Lactic Acid 1.4 mmol/L (0.5-2.0) 07/03/18 00:29 Calcium 8.3 mg/dL (8.6-10.3) L 07/05/18 05:25 Magnesium 1.8 mg/dL (1.9-2.7) L 07/05/18 05:25 Troponin I 0.00 ng/mL (<0.04) 07/04/18 19:48 TSH 0.77 mcIU/mL (0.34-5.60) 07/02/18 22:36 Urine Color Yellow 07/03/18 09: Urine Appearance Clear 07/03/18 09: Urine pH 5.0 (5-9) 07/03/18 09:29 Ur Specific [place] 1.015 (1.010-1.030) 07/03/18 09: Urine Protein Negative (Negative) 07/03/18 09: Urine Ketones Negative (Negative) 07/03/18 09: Urine Blood 2+ (Negative) A 07/03/18 09: Urine Nitrate Negative (Negative) 07/03/18: Urine Bilirubin Negative (Negative) 07/03/18 09: Urine Urobilinogen Negative (Negative) 07/03/18 09:29 Ur Leukocyte Esterase Negative (Negative) 07/03/18 09:29 Urine WBC (Auto) Trace(0-5/hpf) (Absent) 07/03/18 09: Urine RBC (Auto) 3+(>10/hpf) (Absent) A 07/03/18 09:29 Ur Squamous Epith Cells Present (Absent) A 07/02/18 12:36 Urine Bacteria Absent (Absent) 07/03/18 09:29 Hyaline Casts Present (Absent) A 07/02/18 12:36 Ur Random Creatinine 213.53 mg/dL 07/02/18 12:36 Ur Random Sodium < 18 mmol/L 07/02/18 12:36 Urine Glucose Negative (Negative) 07/03/18 09:29 Vancomycin Trough 17.8 mcg/mL 07/08/18 06:25
[2018-07-08] MEDS: NIFEdipine ER TAB* 30 MG PO SCH (17:45)
[2018-07-08] MEDS: Metoprolol Succinate XL TAB* 100 MG PO SCH (17:45)
[2018-07-08] MEDS: Nortriptyline CAP* 10 MG PO SCH (21:07)
[2018-07-08] MEDS: Atorvastatin* 10 MG TAB PO SCH (21:07)
[2018-07-09] MEDS ORDERED: Vancomycin Trough Check NOTE FOLLOW UP ONE (05:30)
[2018-07-09] MEDS: Vancomycin(*) 1,000 MG in NS 0.9% 250 ML* 250 ML IVPB SCH (07:25)
[2018-07-09] MEDS: Insulin LISPRO* 1 UNITS UNIT SUBCUT SCH ×2 (08:53→12:03)
[2018-07-09] MEDS: Enalapril TAB* 5 MG PO SCH (08:54)
[2018-07-09] MEDS: Citalopram TAB* 40 MG PO SCH (08:54)
[2018-07-09] MEDS: Docusate CAP* 100 MG PO SCH (08:54)
[2018-07-09] MEDS: Folic Acid TAB* 1 MG PO SCH (08:54)
[2018-07-09] MEDS: CMCS:Pantoprazole TAB (NF) 40 MG TAB PO SCH (08:54)
[2018-07-09] MEDS: Metoprolol Succinate XL TAB* 200 MG TAB.XL PO SCH (08:54)
[2018-07-09] MEDS: Apixaban* 5 MG TAB PO SCH (08:54)
[2018-07-09] MEDS: Magnesium Hydroxide LIQ* 30 ML UDC PO SCH (08:55)
--- NOTE | 2018-07-09 10:52 | PN ---
Progress Note - Progress Note Date of Service: 07/09/18 SOAP: Subjective: [] Patient seen and examined at bedside. He feels well without CP, SOB, nausea, dizziness, fever or chills. Objective: []General: Well appearing, NAD RLE: Right hip dressing changed, incision CDI without erythema or discharge. Thigh is soft. Sensation intact distally. DF/PF intact. DP2+ Calves supple and nontender without palpable cords. Right calf with still with mild erythema anterolaterally, no spread of or worsening of erythema and 1+ pitting edema. + bilateral lower legs with hemosiderin deposits Assessment: s/p Right TEJAS Plan: OOB PT/OT Pain control DVT prophylaxis - continue Eliquis Okay to restart home dose plavix DC to [place] today Currently on IV vancomycin for cellulitis RLE, venous dopplar negative for DVT. Okay to switch to oral clindamycin at discharge. Elevate RLE and keep lower legs well moisturized. Afebrile and without leukocytosis during his stay Vital Signs Temp 97.7 F 07/09/18 08:02 Pulse 71 07/09/18 08:02 Resp 17 07/09/18 08:02 BP 145/84 07/09/18 08:02 Pulse Ox 95 07/09/18 08:02 Intake & Output 07/08/18 07/09/18 07/09/18 18:59 06:59 18:59 Intake Total 50 1402 297 Output Total 600 550 250 Balance -550 852 47 Intake: IV Fluids 302 297 ABX - VANCOMYCIN 274 267 NS (0.9%) 28 30 Oral 50 1100 Output: Urine 600 550 250 Other: Estimated Void Small Date of Last Bowel 07/09/1807/09 Movement # Bowel Movements 1 1 Estimated Stool Amount Small Small # Voids 1 Laboratory Last Values WBC 6.6 10^3/ul (3.5-10.8) 07/06/18 05:02 RBC 3.44 10^6/ul (4.00-5.40) L 07/06/18 05:02 Hgb 11.4 g/dl (14.0-18.0) L 07/06/18 05:02 Hct 34 % (42-52) L 07/06/18 05:02 MCV 99 fL (80-94) H 07/06/18 05:02 MCH 33 pg (27-31) H 07/06/18 05:02 MCHC 34 g/dl (31-36) 07/06/18 05:02 RDW 16 % (10.5-15) H 07/06/18 05:02 Plt Count 249 10^3/ul (150-450) 07/06/18 05:02 MPV 8.1 um3 (7.4-10.4) 07/06/18 05:02 Neut % (Auto) 65.8 % (38-83) 07/04/18 07:08 Lymph % (Auto) 15.9 % (25-47) L 07/04/18 07:08 [place] % (Auto) 13.2 % (0-7) H 07/04/18 07:08 Eos % (Auto) 4.8 % (0-6) 07/04/18 07:08 Baso % (Auto) 0.3 % (0-2) 07/04/18 07:08 Absolute Neuts (auto) 4.4 10^3/ul (1.5-7.7) 07/04/18 07:08 Absolute Lymphs (auto) 1.1 10^3/ul (1.0-4.8) 07/04/18 07:08 Absolute Monos (auto) 0.9 10^3/ul (0-0.8) H 07/04/18 07:08 Absolute Eos (auto) 0.3 10^3/ul (0-0.6) 07/04/18 07:08 Absolute Basos (auto) 0 10^3/ul (0-0.2) 07/04/18 07:08 Absolute Nucleated RBC 0 10^3/ul 07/04/18 07:08 Nucleated RBC % 0.1 07/04/18 07:08 INR (Anticoag Therapy) 1.26 (0.77-1.02) H 07/06/18 05:02 Sodium 136 mmol/L (135-145) 07/05/18 05:25 Potassium 4.7 mmol/L (3.5-5.0) 07/05/18 05:25 Chloride 101 mmol/L (101-111) 07/05/18 05:25 Carbon Dioxide 29 mmol/L (22-32) 07/05/18 05:25 Anion Gap 6 mmol/L (2-11) 07/05/18 05:25 BUN 14 mg/dL (6-24) 07/05/18 05:25 Creatinine 0.94 mg/dL (0.67-1.17) 07/05/18 05:25 Est GFR ( Amer) 94.9 (>60) 07/05/18 05:25 Est GFR (Non-Af Amer) 78.4 (>60) 07/05/18 05:25 BUN/Creatinine Ratio 14.9 (8-20) 07/05/18 05:25 Glucose 165 mg/dL (70-100) H 07/05/18 05:25 POC Glucose (mg/dL) 192 mg/dL (70-100) H 07/09/18 08:06 Lactic Acid 1.4 mmol/L (0.5-2.0) 07/03/18 00:29 Calcium 8.3 mg/dL (8.6-10.3) L 07/05/18 05:25 Magnesium 1.8 mg/dL (1.9-2.7) L 07/05/18 05:25 Troponin I 0.00 ng/mL (<0.04) 07/04/18 19:48 TSH 0.77 mcIU/mL (0.34-5.60) 07/02/18 22:36 Urine Color Yellow 07/03/18 09: Urine Appearance Clear 07/03/18 09: Urine pH 5.0 (5-9) 07/03/18 09: Ur Specific [place] 1.015 (1.010-1.030) 07/03/18 09: Urine Protein Negative (Negative) 07/03/18 09: Urine Ketones Negative (Negative) 07/03/18 09: Urine Blood 2+ (Negative) A 07/03/18 09: Urine Nitrate Negative (Negative) 07/03/18: Urine Bilirubin Negative (Negative) 07/03/18: Urine Urobilinogen Negative (Negative) 07/03/18 09:29 Ur Leukocyte Esterase Negative (Negative) 07/03/18 09:29 Urine WBC (Auto) Trace(0-5/hpf) (Absent) 07/03/18 09: Urine RBC (Auto) 3+(>10/hpf) (Absent) A 07/03/18 09:29 Ur Squamous Epith Cells Present (Absent) A 07/02/18 12:36 Urine Bacteria Absent (Absent) 07/03/18 09:29 Hyaline Casts Present (Absent) A 07/02/18 12:36 Ur Random Creatinine 213.53 mg/dL 07/02/18 12:36 Ur Random Sodium < 18 mmol/L 07/02/18 12:36 Urine Glucose Negative (Negative) 07/03/18 09:29 Vancomycin Trough 17.8 mcg/mL 07/08/18 06:25
[2018-07-09] MEDS ORDERED: Clindamycin CAP* 150 MG PO SCH (12:00)
[2018-07-09] MEDS: HYDROcodone/ACETAMIN 5-325 MG* 1 TAB PO PRN (12:04)
[2018-07-09 13:13] VITALS: BP 160/75
--- NOTE | 2018-07-09 13:39 | DS ---
AMENDED REPORT NOW INCLUDES DESIGNATED COSIGNER DISCHARGE SUMMARY: DATE OF ADMISSION: 07/01/18 DATE OF DISCHARGE: 07/09/18 ATTENDING PROVIDER: Genna Palacio MD.* (DICTATED BY LORENA GAMEZ) NUCLEAR WASTE PROCESS OPERATOR: LORENA Rice. PREOPERATIVE DIAGNOSIS: Severe endstage degenerative osteoarthritis of the right hip joint. OPERATIVE PROCEDURE: Right total hip arthroplasty. HISTORY: Mr. Gregory is a 72-year-old gentleman with severe osteoarthritis and chronic pain in the right hip. He failed conservative treatment and elected to undergo a right total hip arthroplasty. HOSPITAL COURSE: The patient was admitted to [facility] on . He underwent a right total hip arthroplasty without complication. He recovered briefly in the PACU and was transferred to the short-stay surgical unit without complication. Postop day 1, dressing clean, dry, and intact. Flexion, extension at ankle and MTPs intact. Unable to flex and extend at the knee and hip due to nerve block. Sensation intact. Dorsalis pedis pulse 2+. On 07/02/18 hospitalist was called to the bedside for chest pain and AFib. The patient was transferred to [address] [place] [address]. The following day, it was found that decrease in metoprolol dose was likely a contributing factor due to AFib and AFib resolved when metoprolol was reinstated. Postop day 2, the patient is well appearing, in no acute distress. He remained unable to passively flex at the hip due to pain and unable to ambulate with physical therapy. He reported decreased sensation on this side including all surfaces. Postop day 3, right hip pain much improved. Of note, he did have a right hip x-ray postoperatively on 07/03, which showed a normally located right total hip prosthesis without any periprosthetic fracture evident. On 07/04/18, vancomycin was started due to cellulitis of the right lower extremity of the huizar. He was kept on this until 07/09/18. The cellulitis did improve quite a bit, but he remained with some swelling and mild erythema of the right lower extremity. On 07/09/18, he was switched to oral clindamycin at discharge to continue treatment of cellulitis for an additional 5 days. He was instructed to elevate the right lower extremity and his lower extremities are very flaky, with dry skin; he needs to be kept well moisturize to avoid any cracking of the skin, which would allow for new potential sites of infection. Patient was afebrile throughout his entire stay as well as without any leukocytosis during his stay. He was deemed to be medically and orthopedically stable for discharge to [facility] on 07/09/18. His pain was drastically reduced. His incision is clean, dry, and intact. He is able to sit to stand. Would need to change the dressing with 1 assist and feeling stable. DISCHARGE LABORATORY DATA: Labs on day of discharge POC glucose is 192. DISCHARGE PHYSICAL EXAMINATION: Vital signs day of discharge, temperature 97.7 , pulse rate 71, respiratory rate 17, oxygen saturation 95, blood pressure 145/ 84. DISCHARGE MEDICATIONS: 1. Enalapril 10 mg p.o. b.i.d. 2. Folic acid 1 mg p.o. q.a.m. 3. Methotrexate 0.4 mL subcu weekly. 4. Citalopram 40 mg p.o. q.a.m. 5. Nortriptyline 20 mg p.o. at bedtime. 6. Metformin 1000 mg p.o. at bedtime. 7. Glyburide 0.5 mg per instruction. 8. Mcintosh 10/325 one tab p.o. q.6 hours p.r.n. 9. Nifedipine 10 mg p.o. q.p.m. 10. Potassium 20 mEq p.o. q.a.m. 11. Eliquis 5 mg p.o. b.i.d. 12. Clopidogrel 75 mg p.o. daily. 13. Metoprolol succinate 200 mg p.o. q.a.m. 14. Metoprolol succinate 100 mg p.o. q.p.m. 15. Pantoprazole 40 mg p.o. q.a.m. 16. Nitroglycerin sublingual tab 0.4 mg sublingually p.r.n. per instruction. 17. Atorvastatin 10 mg p.o. q.h.s. 18. Simponi can be discontinued during his rehab stay. He will not use this for at least a month after surgery. 19. Clindamycin 300 mg p.o. q.6 hours for 5 days for right lower extremity cellulitis. 20. Cyclobenzaprine 5 mg p.o. t.i.d. p.r.n. 21. Docusate 100 mg p.o. b.i.d. p.r.n. 22. Mcintosh 5/325 one to two tabs every 4 to 6 hours as needed for pain, max daily dose of 10. DISCHARGE PLAN: Patient will be weightbearing as tolerated. He will need to continue hip precautions. He may shower. DVT prophylaxis, continue home dose of Eliquis 5 mg p.o. b.i.d. Needs to restart Plavix 75 mg daily. For cellulitis of the right huizar, clindamycin 300 mg every 6 hours for 5 days. If redness worsens, any pain, warmth, increased swelling, or fever, please let the health care provider know right away. Keep elevated, keep well moisturized. Pain control, hydrocodone/acetaminophen 5/325 one to two tabs by mouth every 4 to 6 hours as needed for pain, max 10 tabs per day. Please hold for sedation. Follow up with Dr. Palacio in 10 to 14 days. Patient will be discharged to [facility]. LORENA GAMEZ [id number]/[facility] #: [id number] NORTHEAST HEALTH SYSTEMEtelvina
[2018-07-10] MEDS ORDERED: Vancomycin Trough Check NOTE FOLLOW UP ONE (05:30)
== END 2018-07-09 13:45 | DRG 470 ==
LOC: AA 07-01 09:14 → SSU 07-01 15:19 → MEDTELE 07-02 23:12 → SSU 07-03 16:24
PROVIDERS: ADMIT Orthopaedic Surgery Adult Reconstructive Orthopaedic Surgery; ATTEND Orthopaedic Surgery Adult Reconstructive Orthopaedic Surgery
PROC: 0SR904A Replacement of Right Hip Joint with Ceramic on Polyethylene Synthetic Substitute, Uncemented, Open Approach (ICD-10-PCS; principal; 2018-07-01 12:00)
DX: M16.11 Unilateral primary osteoarthritis, right hip (principal); L03.115 Cellulitis of right lower limb; N17.9 Acute kidney failure, unspecified; L40.50 Arthropathic psoriasis, unspecified; I71.2 Thoracic aortic aneurysm, without rupture; I25.10 Atherosclerotic heart disease of native coronary artery without angina pectoris; J45.909 Unspecified asthma, uncomplicated; G89.29 Other chronic pain; F32.9 Major depressive disorder, single episode, unspecified; K21.9 Gastro-esophageal reflux disease without esophagitis; G47.33 Obstructive sleep apnea (adult) (pediatric); E66.9 Obesity, unspecified; I48.2 Chronic atrial fibrillation; E11.51 Type 2 diabetes mellitus with diabetic peripheral angiopathy without gangrene; I48.0 Paroxysmal atrial fibrillation; E78.2 Mixed hyperlipidemia; M10.9 Gout, unspecified; N18.9 Chronic kidney disease, unspecified; I35.0 Nonrheumatic aortic (valve) stenosis; M25.751 Osteophyte, right hip; R07.9 Chest pain, unspecified; I12.9 Hypertensive chronic kidney disease with stage 1 through stage 4 chronic kidney disease, or unspecified chronic kidney disease; E11.22 Type 2 diabetes mellitus with diabetic chronic kidney disease; Z86.718 Personal history of other venous thrombosis and embolism; Z86.73 Personal history of transient ischemic attack (TIA), and cerebral infarction without residual deficits; Z95.5 Presence of coronary angioplasty implant and graft; Z88.0 Allergy status to penicillin; Z88.2 Allergy status to sulfonamides; Z91.048 Other nonmedicinal substance allergy status; Z87.442 Personal history of urinary calculi; Z98.42 Cataract extraction status, left eye; Z98.41 Cataract extraction status, right eye; Z80.9 Family history of malignant neoplasm, unspecified; Z82.5 Family history of asthma and other chronic lower respiratory diseases; Z87.891 Personal history of nicotine dependence; Z72.89 Other problems related to lifestyle; Z79.01 Long term (current) use of anticoagulants; Z79.84 Long term (current) use of oral hypoglycemic drugs; Z68.36 Body mass index [BMI] 36.0-36.9, adult; Z79.02 Long term (current) use of antithrombotics/antiplatelets
CPT/HCPCS: 36415; 71045; 72170; 80048; 80202; 81003; 81015; 82570; 83605; 83735; 84300; 84443; 84484; 85014; 85018; 85025; 85027; 85049; 85610; 87040; 87086; 87641; 88304; 88311; 93005; A9270-GY; C1713; C1776; G8978-GP-CL; G8979-GP-CI; G8987-GO-CL; G8988-GO-CI; J0780; J1885; J2250; J2270; J2704; J2795; J3010; J3370; J3475; J3490

== ENCOUNTER 2019-02-13 16:31 | Inpatient (IN) | payer MEDICARE ==
[2019-02-13] MEDS ORDERED: NS 0.9% 1000 ML** 1,000 ML IV ONE (18:36)
--- NOTE | 2019-02-13 18:39 | ED ---
GI/ HPI - HPI Summary HPI Summary: Pt is a 73 y/o M presenting to the ED with a chief complaint of kidney stones. He states he has had pain in his L flank for the past few weeks, and he had a CT scan this morning. His PCP called him and told him to come here, because he had kidney stones. He denies fever, chills, nausea, or vomiting. He is a former smoker, rarely drinks alcohol, and does not use drugs. He has hx of AFib. He denies hx of CHF. - History of Current Complaint Chief Complaint: EDFlankPain Time Seen by Provider: 02/13/19 18:16 Stated Complaint: KIDNEY STONES PER Hx Obtained From: Patient Onset/Duration: Started Weeks Ago, Still Present Timing: Constant, Lasting Weeks Severity: Mild Current Severity: Moderate Pain Intensity: 4 Location of Pain: Flank - left Associated Signs and Symptoms: Positive: Flank Pain. Negative: Nausea, Vomiting , Fever, Chills Aggravating Factor(s): Nothing Alleviating Factor(s): Nothing - Additional Pertinent History Primary Care Physician: [id number] - Allergy/Home Medications Allergies/Adverse Reactions: Allergies Allergy/AdvReac Type Severity Reaction Status Date / Time Penicillins Allergy Unknown Verified 02/13/19 16:33 Reaction Details Sulfa (Sulfonamide Allergy Unknown Verified 02/13/19 16:33 Antibiotics) Reaction Details electrodes on holter monitor Allergy See Comment Uncoded 02/13/19 16:33 Home Medications: Home Medications Hydrocodone/Acetaminophen [Hydrocodone Bitartrate/AC] 1 tab PO Q6HR PRN [History Confirmed 02/13/19] Methotrexate Sodium/Pf [Methotrexate 50 mg/2 ml Vial] 0.3 ml SUBCUT TU 02/13/19 [History Confirmed 02/13/19] Metoprolol Succinate XL TAB* [Toprol XL TAB*] 100 mg PO QPM 02/13/19 [History Confirmed 02/13/19] Metoprolol Succinate XL TAB* [Toprol XL TAB*] 200 mg PO QAM 02/13/19 [History Confirmed 02/13/19] Pantoprazole TAB * [Protonix TAB*] 40 mg PO QAM 02/13/19 [History Confirmed 03/27] glipiZIDE TAB* [Glucotrol TAB*] 2.5 mg PO QPM 02/13/19 [History Confirmed ] glipiZIDE TAB* [Glucotrol TAB*] 5 mg PO QAM 02/13/19 [History Confirmed 02/13/19 ] PMH/Surg Hx/FS Hx/Imm Hx Previously Healthy: No Endocrine/Hematology History: Reports: Hx Anticoagulant Therapy - warfarin tx for afib, Hx Diabetes Denies: Hx Blood Disorders, Hx Blood Transfusions, Hx Bone Marrow Disease, Hx Systemic Lupus Erythematosus, Hx Sickle Cell Disease, Hx Thyroid Disease, Hx Anemia, Hx Unexplained Bleeding, Other Endocrine/Hematological Disorders Cardiovascular History: Reports: Hx Angina, 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, Hx Hypertension, Hx Peripheral Vascular Disease, Hx Valvular Heart Disease - aortic valve disorder, Other Cardiovascular Problems/Disorders - 4 CARDIAC STENTS PLACED 2013, Denies: Hx Aneurysm, Hx Angioplasty, Hx Auto Implanted Cardiovert Defib, Hx Cardiac Arrest, Hx Cardiomegaly, Hx Congenital Heart Disease, Hx Congestive Heart Failure, Hx Deep Vein Thrombosis, Hx Embolism, Hx Hypercholesterolemia, Hx Hypotension, Hx Pacemaker/ICD, Hx Rheumatic Fever, Hx Syncope Respiratory History: Reports: Hx Sleep Apnea - CANT TOLERATE C PAP Denies: Hx Asthma, Hx Chronic Bronchitis, Hx Chronic Obstructive Pulmonary Disease (COPD), Hx Cystic Fibrosis, Hx Lung Cancer, Hx Pleural Effusion, Hx Pneumonia, Hx Pulmonary Edema, Hx Pulmonary Embolism, Hx Seasonal Allergies, Other Respiratory Problems/Disorders GI History: Reports: Hx Ulcer Denies: Hx Cirrhosis, Hx Crohn's Disease, Hx Diverticulosis, Hx Gall Bladder Disease, Hx Gastroesophageal Reflux Disease, Hx Gastrointestinal Bleed, Hx Hiatal Hernia, Hx Irritable Bowel, Hx Jaundice, Hx Obstructive Bowel, Hx Ileostomy, Hx Pyloric Stenosis, Other GI Disorders History: Reports: Hx Kidney Stones - CURRENTLY AND HX Denies: Hx Acute Renal Failure, Hx Benign Prostatic Hyperplasia, Hx Chronic Renal Failure, Hx Dialysis, Hx Kidney Infection, Hx Renal Disease, Other Problems/Disorders Musculoskeletal History: Reports: Hx Arthritis - HANDS, LEGS, HIPS Denies: Hx Back Problems, Hx Bursitis, Hx Congenital Bone Abnormalities, Hx Fibromyalgia, Hx Gout, Hx Orthopedic Injury, Hx Osteoporosis, Hx Scoliosis, Hx Tendonitis, Other Musculoskeletal History Sensory History: Reports: Hx Cataracts - KIRBY, Hx Contacts or Glasses - GLASSES, Hx Vision Problem Denies: Hx Eye Injury, Hx Eye Prosthesis, Hx Glaucoma, Hx Legally Blind, Hx Macular Degeneration, Hx Deafness, Hx Hearing Aid, Hx Hearing Problem, Other Sensory Impairments Opthamlomology History: Reports: Hx Cataracts - KIRBY, Hx Contacts or Glasses - GLASSES, Hx Vision Problem Denies: Hx Eye Injury, Hx Eye Prosthesis, Hx Glaucoma, Hx Legally Blind, Hx Macular Degeneration, Other Sensory Impairments Neurological History: Reports: Hx Headaches, Hx Migraine - INFREQUENT, Hx Transient Ischemic Attacks (TIA) - 2 in past Denies: Hx Dementia, Hx Developmental Delay, Hx Nerve Disease, Hx Seizures, Hx Spinal Cord Injury, Other Neuro Impairments/Disorders Psychiatric History: Reports: Hx Anxiety, Hx Depression, Hx Inpatient Treatment , Hx Suicide Attempt Denies: Hx Attention Deficit Hyperactivity Disorder, Hx Eating Disorder, Hx Panic Disorder, Hx Post Traumatic Stress Disorder, Hx Community Mental Health Tx , Hx Schizophrenia, Hx Bipolar Disorder, Hx of Violent Episodes Against Others, Hx Substance Abuse, Other Psychiatric Issues/Disorders - Surgical History Surgery Procedure, Year, and Place: CAROTID ENDARTERECTOMY left, 1989, [facility] [place] CARPAL TUNNEL, RIGHT, 2011,[facility] [place] SEVERAL KIDNEY STONE SURGERIES, [facility] [place]. CARDIAC STENTS X4, 06/2014, [facility] [place]. KIRBY CATARACTS, 2013, [facility] [place]. RIGHT FEMUR, [facility], . RT HIP REPLACEMENT. right rotator cuff repair 2017 Hx Anesthesia Reactions: No - Immunization History Date of Tetanus Vaccine: unknown Infectious Disease History: No Infectious Disease History: Denies: Hx Clostridium Difficile, Hx Hepatitis, Hx Human Immunodeficiency Virus (HIV), Hx of Known/Suspected MRSA, Hx Shingles, Hx Tuberculosis, Hx Known/ Suspected VRE, Hx Known/Suspected VRSA, History Other Infectious Disease, Traveled Outside the [place] in Last 30 Days - Family History Known Family History: Negative: Respiratory Disease - Social History Alcohol Use: Rare Alcohol Amount: 2-3 PER YEAR Hx Substance Use: No Substance Use Type: Reports: None Hx Tobacco Use: Yes Smoking Status (MU): Former Smoker Type: Cigarettes, Pipe Amount Used/How Often: PIPE, smoked for 12 years Have You Smoked in the Last Year: No Review of Systems Negative: Fever, Chills Negative: Vomiting, Nausea Positive: Myalgia - L flank pain All Other Systems Reviewed And Are Negative: Yes Physical Exam - Summary Physical Exam Summary: GENERAL: Patient is a well-developed and nourished M who is lying comfortable in the stretcher. Patient is not in any acute respiratory distress. HEAD AND FACE: Normocephalic EYES: PERRLA, EOMI x 2. EARS: Hearing grossly intact. MOUTH: Oropharynx within normal limits. NECK: Supple, trachea is midline, no adenopathy, no JVD, no carotid bruit. CHEST: Symmetric, no tenderness at palpation LUNGS: Clear to auscultation bilaterally. No wheezing or crackles. CVS: Regular rate and rhythm, S1 and S2 present, no murmurs or gallops appreciated. ABDOMEN: Obese, non-tender. Bowel sounds are normal. No abnormal abdominal pulsations. EXTREMITIES: Full ROM in all major joints, no edema, no cyanosis or clubbing. NEURO: Alert and oriented x 3. No acute neurological deficits. Speech is normal and follows commands. SKIN: Dry and warm Triage Information Reviewed: Yes Vital Signs On Initial Exam: Initial Vitals Temp Pulse Resp BP Pulse Ox 99.6 F 75 18 142/93 97 02/13/19 16:31 02/13/19 16:31 02/13/19 16:31 02/13/19 16:31 02/13/19 16:31 Vital Signs Reviewed: Yes Diagnostics - Vital Signs Vital Signs Temp Pulse Resp BP Pulse Ox 02/13/19 18:23 75 96 02/13/19 18:22 76 159/102 96 02/13/19 16:31 99.6 F 75 18 142/93 97 - Laboratory Result Diagrams: 02/13/19 18:59 02/13/19 18:59 Lab Statement: Any lab studies that have been ordered have been reviewed, and results considered in the medical decision making process. GIGU Course/Dx - Course Course Of Treatment: Pt is a 73 y/o M presenting to the ED with a chief complaint of kidney stones. He had a CT scan done this morning which showed kidney stones, and his PCP advised that he come here. He denies fever, chills, nausea, or vomiting. He is a former smoker, rarely drinks alcohol, and does not use drugs. He has hx of AFib. He denies hx of CHF. On exam, the pt's abd is obese and non-tender. Pts hematology shows RBC of 3.63, Hgb of 11.7, Hct of 35, MCV of 95, MCH of 32, and RDW of 16. Coagulation shows INR of 1.61. His chemistry shows Sodium of 133, Chloride of 100, BUN of 29, Creatinine of 2.09, total Bilirubin of 1.30, AST of 58, ALT of 106, Alkaline Phosphate of 141, CRP of 117.01, and Lipase of 93. His urine shows 2+ blood, 1+ leukocyte esterase, 2 + WBC, 3+ RBC, and 1+ bacteria. I spoke with Dr. Livingston at 20:01 who states that they have not seen the patient in four years. He states he is willing to come and put a stent in, if the hospitalist clears him for general anesthesia. They cannot use spinal anesthesia because the pt is on blood thinners. [address] Borden about the pt who will be going to see her soon. 2029 - Dr. Borden will accept the pt for admission with dx of kidney stone. - Diagnoses Provider Diagnoses: Kidney stone Discharge - Sign-Out/Discharge Documenting (check all that apply): Patient Departure - Discharge Plan Condition: Stable Disposition: ADMITTED TO [facility] Referrals: Puma Nixon MD [Primary Care Provider] - - Billing Disposition and Condition Condition: STABLE Disposition: Admitted to [facility] - Attestation Statements Document Initiated by Walkeribe: Yes Documenting Scribe: Jelly Martinez Provider For Whom Walkeribe is Documenting (Include Credential): Ceci Cedeño MD. Scribe Attestation: I, Jelly Martinez, scribed for Ceci Cedeño MD. on 02/13/19 at 2112. Scribe Documentation Reviewed: Yes Provider Attestation: The documentation as recorded by the scribe, Jelly Martinez accurately reflects the service I personally performed and the decisions made by me, Andrew Cedeño MD. Status of Scribe Document: Viewed Consult Consult: 2000 - I spoke with Dr. Livingston who states that they have not seen the patient in four years. He states he is willing to come and put a stent in, if the hospitalist clears him for general anesthesia. They cannot use spinal anesthesia because the pt is on blood thinners. 2002 - I spoke with Dr. Borden about the pt who will be going to see her soon. 2029 Dr. Borden will be accepting the pt to [facility].
[2019-02-13 19:15] LABS: ABS Eosinophils 0.2 10^3/ul (0-0.6); ABS Lymphocytes 0.6 10^3/ul (1.0-4.8); Eosinophil % 4.2 %; Hematocrit 35 % (42-52); Hemoglobin 11.7 g/dL (14.0-18.0); Lymphocyte % 10.2 %; Mean Corpuscular HGB Conc 34 g/dL (31-36); Mean Corpuscular Hemoglobin 32 pg (27-31); Mean Corpuscular Volume 95 fL (80-94); Mean Platelet Volume 8.7 fL (7.4-10.4); Nucleated Red Blood Cells % 0.1; Platelet Count 154 10^3/uL (150-450); Red Blood Count 3.63 10^6 /uL (4.18-5.48); Red Cell Distribution Width 16 % (10-15); White Blood Count 5.9 10^3/uL (3.5-10.8)
[2019-02-13 19:23] LABS: Activated Partial Thrombo Time 37.7 seconds (26.0-38.0); INR 1.61 (0.82-1.09)
[2019-02-13 19:32] LABS: Albumin 3.7 g/dL (3.2-5.2); Albumin/Globulin Ratio 1.1 (1-3); BUN/Creatinine Ratio 14.1 (8-20); C Reactive Protein 117.01 mg/L (<8.01); Calcium 9.3 mg/dL (8.6-10.3); EGFR African American 38.3 (>60); EGFR Non-African American 31.6 (>60); Globulin 3.4 g/dL (2-4); Potassium 4.5 mmol/L (3.5-5.0); Total Bilirubin 1.3 mg/dL (0.2-1.0); Total Protein 7.1 g/dL (6.4-8.9)
[2019-02-13 19:37] LABS: Urine Appearance Clear; Urine Bacteria 1+ (Absent); Urine Bilirubin Negative (Negative); Urine Blood 2+ (Negative); Urine Color Yellow; Urine Glucose Negative (Negative); Urine Ketones Negative (Negative); Urine Nitrite Negative (Negative); Urine Protein Negative (Negative); Urine Red Blood Cell 3+(>10/hpf) (Absent); Urine Specific Gravity 1.032 (1.010-1.030); Urine Urobilinogen Negative (Negative); Urine White Blood Cell 2+(11-20/hpf) (Absent)
[2019-02-13] MEDS ORDERED: Morphine 4 MG/ML VIAL (1 ml) 4 MG/ML VIAL IV ONE ×2 (19:48→19:50)
[2019-02-13] MEDS ORDERED: cefTRIAXone(*) 1 GM in NS 0.9% 50 ML* 50 ML IVPB ONE (19:48)
[2019-02-13] MEDS ORDERED: Morphine 4 MG/ML VIAL (1 ml) 4 MG/ML VIAL IV PRN (21:27)
[2019-02-13] MEDS ORDERED: Cyclobenzaprine TAB* 10 MG PO PRN (21:29)
[2019-02-13] MEDS ORDERED: NS 0.9% 1000 ML** 1,000 ML IV SCH (21:30)
[2019-02-13] MEDS ORDERED: Dextrose 50% Syringe 50 ML* 25 GM/50 ML SYRINGE IV PUSH PRN (21:31)
[2019-02-13] MEDS ORDERED: Acetaminophen TAB* 325 MG PO PRN (21:32)
[2019-02-13] MEDS ORDERED: Ondansetron INJ* 2 MG/ML VIAL IV PRN (21:32)
--- NOTE | 2019-02-13 23:55 | HP ---
CC: Dr. Nixon; Dr. Christie.* HISTORY AND PHYSICAL: DATE OF ADMISSION: 02/13/19 PRIMARY CARE PROVIDER: Dr. Nixon. HEALTHCARE PROXY: His and daughter. CODE STATUS: DNR. Confirmed with healthcare proxy in the room. SOURCE OF INFORMATION: History obtained from interview with the patient, his and daughter, review of past medical records including past preop clearance from Dr. Nixon as well as Dr. Cohen. CHIEF COMPLAINT: Left flank pain. HISTORY OF PRESENT ILLNESS: This is a 73-year-old man with a past medical history includes CAD, atrial fibrillation, on Eliquis, history of DVT, IRINA, not on CPAP, who developed left flank pain approximately 2 weeks prior to presentation, had a CAT scan done this morning, showed a large obstructing UPJ stone, was directed to present to [facility]. He denies any recent fevers, chills or night sweats. No increased fatigue, general illness or other indices of infection. Of note, he had a right total hip replacement with general anesthesia and nerve block in June [address] Palacio which was uneventful, underwent preoperative clearance with Dr. Cohen at that time. Since that time, his exercise tolerance had increased secondary to improved mobility in his right hip, however, he is still severely limited by left knee pain. His maximal exertion is generally with his physical therapy which occurs about 45 minutes per session with the greatest exertion on a treadmill. He does get his heart rate up and his breathing does get heavy. He did not have any chest discomfort. Two weeks ago, after the onset of his left flank pain, he was on the treadmill and did develop some chest discomfort, which was described as "leg pain" that lasted for approximately 1 minute, relieved with rest without nausea, lightheadedness, vomiting, or diaphoresis. It is unclear whether this represent a true angina as he has already developed approximately 5/10 left flank pain, at the time this coincided. He has never had any associated symptoms of chest discomfort or shortness of breath since his last preoperative clearance in May and for that matter over the last 4 -1/2 years since his last percutaneous coronary intervention. Since his last surgery in June, he in fact was 36 pounds and has generally been more active. Additionally, he is able to ambulate up approximately 5 steps, which he was unable to perform previously. He had had no syncope or presyncope, other episodes of dizziness, lightheadedness, exertional sweating or exertion of symptoms. He does get out quite frequently to mow his grass although this is a sitting mower. PAST MEDICAL HISTORY: Includes right total hip in 06/2018, hypertension, atrial fibrillation on Eliquis, type 2 diabetes, DVT in right upper extremity in 2015 in the setting of his rotator cuff surgery. Thoracic aneurysm, CAD, stent to the RCA in 2013, hyperlipidemia, IRINA, does not use a CPAP, TIA, asthma , peripheral vascular disease, bronchomalacia diagnosed on BAL [place] [address] Cervantes. He has had a left carotid endarterectomy in [address] Brannon, rotator cuff surgery, and CABG. HOME MEDICATIONS: Includes: 1. Glipizide 5 mg in the morning and 2.5 mg in the evening. 2. Eliquis 5 mg twice daily. 3. Citalopram 40 mg daily. 4. Atorvastatin 10 mg daily. 5. Enalapril 10 mg twice daily. 6. Cyclobenzaprine 5 mg 3 times daily as needed. 7. Clopidogrel 75 mg daily. 8. Folic acid 1 mg in the morning. 9. Hydrocodone/acetaminophen 1 every 6 hours as needed for pain. 10. Methotrexate on Tuesdays subcutaneously. 11. Metoprolol succinate 200 mg in the morning and 100 mg in the evening. 12. Pantoprazole 40 mg in the morning. 13. Nortriptyline 20 mg at bedtime. 14. Nifedipine ER 30 mg in the evening. 15. Potassium chloride 20 mEq in the morning. ALLERGIES: PENICILLIN, SULFA, and ELECTRODES FROM HIS PREVIOUS HOLTER MONITOR. FAMILY HISTORY: Significant for psoriatic arthritis and cancer. SOCIAL HISTORY: No tobacco, quit 30 years prior, drinks alcohol rarely on holidays. No illicits. REVIEW OF SYSTEMS: As per HPI. Otherwise, all other systems negative. PHYSICAL EXAMINATION GENERAL: Lying flat in bed, interactive, pleasant, in no apparent distress. VITAL SIGNS: In the emergency room, 159/102, heart rate is 75, respiratory rate is 18, 96% on room air, T-max 99.6. HEENT: Oropharynx is clear. Moist mucous membranes. Sclerae are anicteric. LUNGS: Clear to auscultation. HEART: He is in irregularly irregular heart rate with a 2/6 systolic ejection murmur, loudest in the right upper sternal border. ABDOMEN: Soft, nontender, nondistended. He does have flank tenderness in his left flank. EXTREMITIES: Warm and well perfused. He has trace lower extremity edema. NEUROLOGIC: He is alert and oriented x3. His cranial nerves II through XII are intact. He has no apparent anxiety, agitation or depression. DIAGNOSTIC STUDIES/LAB DATA: Labs were reviewed. His hemoglobin is 11.7. His white blood cell count is 5.9, his platelets are 159, his INR is 1.6. BUN 29, creatinine 2.0. Total bilirubin 1.3, AST 58, ALT 106, alk phos 141. Lipase is 96. His urine is significant for leuk esterase, white blood cells, red blood cells, bacteria. Pertinent data reviewed. CAT scan from today bilateral nephrolithiasis including 1 cm calculus at the left UPJ with associated hydronephrosis. Delayed excretion of the left kidney consistent with an obstructive uropathy, Last echocardiogram noted from October 2017, moderate LVH with an EF of 55% to 60%, [id number] aortic insufficiency, mild aortic stenosis 4.7 cm. Last stress test in 2015 with a normal cardiac chemical nuclear stress, no evidence of ischemia or infarction. ASSESSMENT AND PLAN: A 73-year-old man with a past medical history as outlined above including CAD, atrial fibrillation, presenting with left flank pain, found with large obstructing stone. 1. Obstructing nephrolithiasis. Discussed at length with Dr. Livingston, not on-call , but capable of coming in tomorrow to perform necessary procedure to relieve obstruction. This needs to be done under general anesthesia, given the patient' s use of Eliquis. He does not think this needs to be done emergently. No signs of infection. The patient has received ceftriaxone in the emergency room. I will continue tomorrow including normal saline. My appreciation is that the patient's exercise tolerance has improved. This gentleman's exercise function has increased or improved since June when his last operation was performed under general anesthesia, I think he is an appropriate candidate for general anesthesia again. He has had no chest pain, other worrisome symptoms since that time to suggest he needs additional testing. He did have an episode 2 weeks prior while using a treadmill, however, this is after the onset of current obstructing stone, suspect pain was secondary to obstructing stone and less cardiac. 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 Overall function has improved. We will proceed to surgery without additional testing. Holding Eliquis, holding enalapril, continue metoprolol this evening will be n.p.o. in the morning, goal to restart metoprolol as well as Eliquis as soon as possible. 2. Known mild aortic stenosis noted on echocardiogram. Careful attention during procedure. 3. Obstructive sleep apnea, does not use CPAP, again attention in the perioperative setting. 4. Type 2 diabetes, not on insulin. Holding glipizide, transitioning to sliding scale, transition back to glipizide after procedure. 5. Acute kidney injury in the setting of obstructive uropathy. Unclear that this elevates his risk in the setting of acute kidney injury. This is not chronic. Suspect to be relieved after procedure. Continue normal saline 75 cc overnight while n.p.o. 6. Coronary artery disease. As indicated above, continue home medications including Plavix, holding enalapril. 7. Hypertension. Continue all home medications except enalapril including metoprolol, nifedipine. 8. Atrial fibrillation, holding Eliquis, continue metoprolol. 9. DVT prophylaxis. Hold tonight's dose of Eliquis, SCDs prior to procedure tomorrow. [id number]/[facility] #: [id number] [facility]
[2019-02-14] MEDS: Insulin LISPRO* 1 UNITS UNIT SUBCUT SCH ×5 (00:11→21:47)
[2019-02-14] MEDS ORDERED: D5W 1/2 NS 1000 ML BAG* 1,000 ML IV SCH (08:00)
[2019-02-14] MEDS: Metoprolol Succinate XL TAB* 100 MG PO SCH (08:12)
--- NOTE | 2019-02-14 08:35 | PN ---
Subjective Date of Service: 02/14/19 Interval History: pt has had left flank pain x 2 weeks. Denies hematuria Has had chronic R leg weakness and dx of L5 radiculopathy by Dr. Jones. H/o PAF and CAD under jabier care od Dr. Cohen Objective Active Medications: Acetaminophen (Tylenol Tab*) 650 mg PO Q4H PRN PRN Reason: FEVER/PAIN Atorvastatin Calcium (Lipitor*) 10 mg PO DAILY [facility] Citalopram Hydrobromide (Celexa Tab*) 40 mg PO QAM [facility] Clopidogrel Bisulfate (Plavix Tab*) 75 mg PO DAILY [facility] Cyclobenzaprine HCl (Flexeril Tab*) 5 mg PO TID PRN PRN Reason: SPASMS Dextrose (D50w Syringe 50 Ml*) 12.5 gm IV PUSH .FOR FS < 60 - SS PRN PRN Reason: FS < 60 Last Admin: 02/14/19 07:19 Dose: 12.5 gm Folic Acid (Folvite Tab*) 1 mg PO QAM [facility] Ceftriaxone Sodium 1 gm/ (Sodium Chloride) 50 mls @ 200 mls/hr IVPB Q24H [facility] Dextrose/Sodium Chloride (D5w 1/2 Ns 1000 Ml Bag*) 1,000 mls @ 100 mls/hr IV PER RATE [facility] Last Admin: 02/14/19 07:19 Dose: 100 mls/hr Insulin Human Lispro (Humalog*) 0 units SUBCUT [facility]; Protocol Last Admin: 02/14/19 07:06 Dose: Not Given Metoprolol Succinate (Toprol Xl Tab*) [facility] Last Admin: 02/14/19 08:12 Dose: 200 mg Metoprolol Succinate (Toprol Xl Tab*) 100 mg PO QPM [facility] Morphine Sulfate (Morphine 4 Mg/Ml Vial (1 Ml)) 4 mg IV Q4H PRN PRN Reason: PAIN Nifedipine (Procardia Xl Tab*) 30 mg PO QPM [facility] Nortriptyline HCl (Pamelor Cap*) 20 mg PO BEDTIME [facility] Ondansetron HCl (Zofran Inj*) 4 mg IV Q4H PRN PRN Reason: NAUSEA/VOMITING Pantoprazole Sodium (Protonix Tab*) 40 mg PO QAM [facility] Potassium Chloride (Klor Con Er Tab*) 20 meq PO QAM [facility] Vital Signs - 8 hr 02/14/19 02/14/19 02/14/19 04:34 04:41 07:38 Temperature 96.8 F 97.7 F Pulse Rate 66 71 Respiratory 18 16 Rate Blood Pressure 120/90 143/84 (mmHg) O2 Sat by Pulse 95 95 Oximetry Oxygen Devices in Use Now: None Appearance: 73 yo m in NAD, aAOx3 Eyes: No Scleral Icterus, PERRLA Ears/Nose/Mouth/Throat: NL Teeth, Lips, Gums, Mucous Membranes Moist Neck: NL Appearance and Movements; NL JVP, Trachea Midline Respiratory: Symmetrical Chest Expansion and Respiratory Effort, Clear to Auscultation Cardiovascular: NL Sounds; No Murmurs; No JVD, RRR Abdominal: NL Sounds; No Tenderness; No Distention, - - left flank tenderness noted Lymphatic: No Cervical Adenopathy Extremities: No Edema, No Clubbing, Cyanosis Skin: No Rash or Ulcers, No Nodules or Sclerosis Neurological: Alert and Oriented x 3, - - R leg weaker at 4/5 Result Diagrams: 02/13/19 18:59 02/13/19 18:59 Microbiology and Other Data: Microbiology 02/14/19 04:30 Nasal Screen MRSA (PCR) - Final Nasal Mrsa Not Detected Assess/Plan/Problems-Billing Assessment: 73 yo M with h/o DM, psoriatic arthritis, CAD (4 cardiac stents, last 2013), PAF, R hip surgery in Jun 2018 presents with obstructing left ureteral stone - Patient Problems (1) Hydronephrosis Comment: planned for OR today with urology Please see Dr. Borden's H&P for preop eval due to elevated CRP potential for UTI-Ceftriaxone to be cont. Cx pending (2) Acute on chronic renal failure Comment: due to obstrution (3) Afib Comment: - Paroxysmal afib. On eliquis (held preop) for anticoagulation and metoprolol - Currently NSR - Follows with Dr Cohen as outpatient (4) HTN (hypertension) Comment: - BP well controlled on nifedipine, metoprolol lisinopril held (5) Hx of coronary artery disease Comment: - s/p stent placement 2013 - Continue metoprolol - Follows with Dr. Cohen outpt: cont plavix -pt had been asymptomatic from cardiac standpoint (6) DM2 (diabetes mellitus, type 2) Comment: holding glipizide with mild hypoglycemia due to NPO status-D5 started (7) Psoriatic arthritis Comment: holid methotrexate (8) LFT elevation Comment: mild, likley due to ongoing infection and poss mild prerenal state cont IVF, cont to monitor (9) DVT prophylaxis Comment: - Sharif srivastava, SCD's preop Status and Disposition: inpatient
[2019-02-14 08:46] LABS: ABS Eosinophils 0.3 10^3/ul (0-0.6); ABS Lymphocytes 0.7 10^3/ul (1.0-4.8); ABS Neutrophils 3.2 10^3/ul (1.5-7.7); Eosinophil % 8.1 %; Hematocrit 34 % (42-52); Lymphocyte % 15.4 %; Mean Corpuscular HGB Conc 33 g/dL (31-36); Mean Corpuscular Hemoglobin 31 pg (27-31); Mean Corpuscular Volume 95 fL (80-94); Mean Platelet Volume 8.6 fL (7.4-10.4); Platelet Count 156 10^3/uL (150-450); Red Blood Count 3.52 10^6 /uL (4.18-5.48); Red Cell Distribution Width 17 % (10-15); White Blood Count 4.3 10^3/uL (3.5-10.8)
[2019-02-14 08:53] LABS: Albumin 3.3 g/dL (3.2-5.2); Albumin/Globulin Ratio 1.1 (1-3); BUN/Creatinine Ratio 12.9 (8-20); Calcium 8.8 mg/dL (8.6-10.3); EGFR African American 43.1 (>60); EGFR Non-African American 35.6 (>60); Globulin 3.1 g/dL (2-4); Potassium 4.3 mmol/L (3.5-5.0); Total Bilirubin 1.3 mg/dL (0.2-1.0); Total Protein 6.4 g/dL (6.4-8.9)
[2019-02-14] MEDS ORDERED: Metoprolol Tartrate IV* 1 MG/ML 5 ML VIAL IV SCH (09:00)
[2019-02-14] MEDS ORDERED: Iohexol 180 (CONTRAST) 10 ML SDV IV ONE (10:48)
[2019-02-14] MEDS ORDERED: Midazolam* 1 MG/ML 5 ML VIAL (5 MG) ONE (10:50)
[2019-02-14] MEDS ORDERED: fentaNYL* 50 MCG/ML 2 ML VIAL (100 MCG VIAL) ONE (11:11)
[2019-02-14] MEDS ORDERED: KETAMINE HCL* 50 MG/ML 10 ML VIAL ONE (11:21)
[2019-02-14] MEDS ORDERED: Propofol* 10 MG/ML 20 ML BTL ONE (11:30)
[2019-02-14] MEDS ORDERED: Naloxone* 0.4 MG/ML 1 ML VIAL IV PRN (11:52)
[2019-02-14] MEDS ORDERED: fentaNYL* 50 MCG/ML 2 ML VIAL (100 MCG VIAL) IV PRN (11:52)
--- NOTE | 2019-02-14 13:22 | OP ---
CC: Dr. Nixon * DATE OF OPERATION: 02/14/19 - ROOM #340 DATE OF : 41 SURGEON: Dre Livingston MD ANESTHESIOLOGIST: Dr. Michel. ANESTHESIA: Intravenous sedation. PRE-OP DIAGNOSES: 1. Left hydronephrosis. 2. Obstructing calculus, left ureteropelvic junction. 3. Left renal calculi. POST-OP DIAGNOSES: 1. Left hydronephrosis. 2. Obstructing calculus, left ureteropelvic junction. 3. Left renal calculi. OPERATIVE PROCEDURE: Cystoscopy, left retrograde pyelogram, left ureteral calculus manipulation, and left stent insertion. COMPLICATIONS: None. STENT USED: 6-Kazakh stent, left ureter. POSTOPERATIVE CONDITION: Stable. INDICATIONS: Leon Gregory is a 73-year-old diabetic, who has had episodic 2 weeks of left flank pain and intermittent gross hematuria. He was noted to have a large obstructing calculus at the left ureteropelvic junction in addition with multiple left renal calculi. The complicating factor also is that he is on several anticoagulants including Eliquis and Plavix, which would preclude any definitive treatment for the calculus at the present time. DESCRIPTION OF PROCEDURE: After induction of intravenous sedation, the patient was placed in dorsal lithotomy position. Sequential compression devices were in place and functioning. Initial cystoscopy revealed a normal-appearing urethra and a mildly enlarged prostate. Guidewire was introduced into the left ureter. On fluoroscopy, I could visualize the large calculus impacted at the ureteropelvic junction. The open-ended catheter was advanced to the level of just below the calculus, and using a combination of contrast and sterile water, I was able to manipulate the calculus proximally. Retrograde pyelogram revealed left hydronephrosis. There was significant drainage of cloudy bloody urine from the left kidney after the obstruction had been relieved. A 6-Kazakh stent was introduced and positioned under fluoroscopy with good proximal and distal positioning obtained. The remainder of the bladder was visualized on cystoscopy and was unremarkable and an 18-Kazakh Abdalla was placed for temporary bladder drainage. The patient tolerated the procedure satisfactorily and was transferred back to the recovery area in stable condition. [id number]/[facility] #: [id number] MTDD
[2019-02-14] MEDS ORDERED: Lidocaine 2% JELLY* 6 ML JELLY TOPICAL PRN (13:35)
[2019-02-14] MEDS: Pantoprazole TAB * 40 MG TAB PO SCH (14:27)
[2019-02-14] MEDS: Folic Acid TAB* 1 MG PO SCH (14:27)
[2019-02-14] MEDS: Citalopram TAB* 40 MG PO SCH (14:27)
[2019-02-14] MEDS: Atorvastatin* 10 MG TAB PO SCH (14:27)
[2019-02-14] MEDS: Clopidogrel TAB* 75 MG PO SCH (14:28)
[2019-02-14] MEDS: Potassium Chlor TAB* 10 MEQ TAB.ER PO SCH (14:28)
[2019-02-14] MEDS: D5W 1/2 NS 1000 ML BAG* 1,000 ML IV SCH (14:43)
[2019-02-14] MEDS ORDERED: Metoprolol Succinate XL TAB* 100 MG PO SCH (18:00)
[2019-02-14] MEDS ORDERED: NIFEdipine ER TAB* 30 MG PO SCH (18:00)
[2019-02-14] MEDS ORDERED: cefTRIAXone(*) 1 GM in NS 0.9% 50 ML* 50 ML IVPB SCH (20:00)
[2019-02-14] MEDS ORDERED: Nortriptyline CAP* 10 MG PO SCH (21:00)
[2019-02-15] MEDS: D5W 1/2 NS 1000 ML BAG* 1,000 ML IV SCH (00:55)
[2019-02-15 05:15] LABS: ABS Eosinophils 0.3 10^3/ul (0-0.6); ABS Lymphocytes 0.9 10^3/ul (1.0-4.8); ABS Neutrophils 1.9 10^3/ul (1.5-7.7); Eosinophil % 9.1 %; Hematocrit 32 % (42-52); Hemoglobin 10.6 g/dL (14.0-18.0); Lymphocyte % 27.7 %; Mean Corpuscular HGB Conc 33 g/dL (31-36); Mean Corpuscular Hemoglobin 31 pg (27-31); Mean Corpuscular Volume 96 fL (80-94); Mean Platelet Volume 8.3 fL (7.4-10.4); Nucleated Red Blood Cells % 0.1; Platelet Count 159 10^3/uL (150-450); Red Blood Count 3.39 10^6 /uL (4.18-5.48); Red Cell Distribution Width 17 % (10-15); White Blood Count 3.1 10^3/uL (3.5-10.8)
[2019-02-15 05:32] LABS: Albumin 3.2 g/dL (3.2-5.2); Albumin/Globulin Ratio 1.1 (1-3); BUN/Creatinine Ratio 11.5 (8-20); Calcium 8.9 mg/dL (8.6-10.3); EGFR African American 65.1 (>60); EGFR Non-African American 53.8 (>60); Globulin 2.9 g/dL (2-4); Indirect Bilirubin 0.6 mg/dL (0.3-1.0); Potassium 4.5 mmol/L (3.5-5.0); Total Bilirubin 1.1 mg/dL (0.2-1.0); Total Protein 6.1 g/dL (6.4-8.9)
[2019-02-15] MEDS: Insulin LISPRO* 1 UNITS UNIT SUBCUT SCH ×2 (08:42→11:54)
[2019-02-15] MEDS: Pantoprazole TAB * 40 MG TAB PO SCH (08:43)
[2019-02-15] MEDS: Citalopram TAB* 40 MG PO SCH (08:43)
[2019-02-15] MEDS: Folic Acid TAB* 1 MG PO SCH (08:43)
[2019-02-15] MEDS: Atorvastatin* 10 MG TAB PO SCH (08:43)
[2019-02-15] MEDS: Clopidogrel TAB* 75 MG PO SCH (08:43)
[2019-02-15] MEDS: Potassium Chlor TAB* 10 MEQ TAB.ER PO SCH (08:44)
[2019-02-15] MEDS: Metoprolol Succinate XL TAB* 100 MG PO SCH (08:44)
[2019-02-15 11:56] VITALS: BP 141/83
--- NOTE | 2019-02-15 13:39 | DS ---
CC: Dr. Nixon; Dr. Livingston; Dr. Chrisite * DISCHARGE SUMMARY: DATE OF ADMISSION: 02/13/19 DATE OF DISCHARGE: To home, 02/15/19. PRIMARY CARE PROVIDER: Dr. Nixon. UROLOGY: Dr. Livingston. DISPOSITION AT DISCHARGE: Home. CONDITION ON DISCHARGE: Stable. DISCHARGE DIAGNOSIS: Acute renal failure due to obstructive left ureteral stone with resulting hydronephrosis, status post cystoscopy performed by Dr. Livingston on 02/14/19 and stenting of the left ureter. SECONDARY DIAGNOSES: 1. History of recurrent kidney stones in the past. 2. History of psoriasis and psoriatic arthritis. 3. History of hypertension. 4. History of chronic atrial fibrillation, on Eliquis. 5. Diabetes, type 2. 6. History of deep venous thrombosis of right upper extremity in 2016 in the setting of rotator cuff surgery. 7. History of thoracic aortic aneurysm. 8. Coronary artery disease. 9. Hyperlipidemia. 10. History of peripheral vascular disease. 11. History of L5 radiculopathy on the right resulting in right leg weakness. MEDICATIONS AT DISCHARGE: Include: 1. Apixaban 5 mg b.i.d. 2. Lipitor 10 mg daily. 3. Celexa 40 mg daily. 4. Plavix 75 mg daily. 5. Vasotec 10 mg b.i.d. 6. Folvite 1 mg q.a.m. 7. Glucotrol 2.5 mg q.p.m. and 5 mg in a.m. 8. Hydrocodone/acetaminophen on p.r.n. basis. 9. Methotrexate subcutaneously as previously taken every Saturday. 10. Metoprolol succinate 200 mg q.a.m. and 100 q.p.m. 11. Nifedipine XL 30 mg q.p.m. 12. Nortriptyline 20 mg at bedtime. 13. Protonix 40 mg daily. 14. Potassium chloride 20 mEq daily. 15. Cefdinir 300 mg b.i.d. for a total of 6 days. 16. Flexeril 5 mg on p.r.n. basis. LABORATORY DATA AND STUDIES PERFORMED DURING THIS HOSPITAL STAY: On 02/15/19, white blood cell count of 3.1, hemoglobin of 10.6, hematocrit of 32, and platelets of 159. Sodium 135, potassium 4.5, chloride 102, carbon dioxide 37, BUN 15, creatinine was 1.3. Liver function tests showed total bilirubin of 1.1 , AST of 50, ALT of 76, and alkaline phosphatase of 153. Urinalysis showed high specific gravity of 1.032, +2 blood, +1 esterase, +1 bacteria. Microbiology test showed cultures from the cystoscopy is still pending. Blood cultures are negative by the day of discharge. CONSULTATIONS DURING THE HOSPITAL STAY: Dr. Livingston from Urology. PROCEDURE PERFORMED: Included retrograde pyelogram, cystoscopy, stent placement in the left ureter performed by Dr. Livingston on 02/14/19. HOSPITALIZATION COURSE: Leon Gregory is a 73-year-old male with history of being on methotrexate for psoriatic arthritis and multiple issues with back pain as well as L5 right-sided radiculopathy with problems with right leg movement, who presented to the hospital after an outpatient CT of abdomen and pelvis showed bilateral nephrolithiasis and left-sided hydronephrosis. The patient stated that he has had problems with left flank pain for the past 2 weeks. The patient also was noted to have acute renal failure with creatinine of 2.06 and mild elevation of liver function tests thought to be due to hypoperfusion that started resolving by the time of discharge. The patient was observed overnight and cystoscopy was performed on 02/14/[address] Livingston also placed a stent. Perioperatively, the patient's Eliquis was held and was restarted at discharge. As per discussion with Dr. Livingston, there was noted to be likely concentrated and likely infected urine proximal to the stent placement and due to that the patient is going to be placed on cefdinir to continue 6 days treatment for a total of 7 days of antibiotics for likely UTI. Urine cultures initially were negative but that was when the patient was obstructed. The urine cultures obtained during cystoscopy is pending at the time of dictation. Perioperatively, the patient had Abdalla catheter placed that was removed by the time of discharge and patient was voiding without any problems. The patient is recommended to follow up with Dr. Livingston in approximately 4 to 7 days and his primary care provider within the same range of time. PHYSICAL EXAM: At the time of discharge, blood pressure of 134/86, heart rate of 76 and regular, respiratory rate 18, oxygen saturation 95% on room air, temperature 98.6. General: The patient is a pleasant 73-year-old male, who is in no acute distress. Alert, awake, and oriented x3. HEENT: Head: Atraumatic , normocephalic. Eyes: Pupils are equal, reactive to light and accommodation. Oropharynx is clear. Mucosa moist. Neck: Supple. No JVD. No bruits bilaterally. Cardiovascular: Regular rate and rhythm. No murmur. Respiratory : Clear to auscultation bilaterally. Abdomen: Soft, nontender. Bowel sounds are present in all 4 quadrants. Extremities: There is trace bilateral pedal edema. Pulses are +2 bilaterally. No clubbing or cyanosis. On neuro evaluation , the patient has problems with movement of the right leg at the hip with weakness at 4+/5. Otherwise, motor strength is 5/5 in the remaining extremities. Cranial nerves II through XII are grossly intact. His speech is intact. CONDITION AT DISCHARGE: Stable. DISPOSITION AT DISCHARGE: Home. Please note that this is a short summary of the patient's hospital stay. Please refer to further medical records for details. TIME SPENT: Approximately 35 minutes was spent on this patient's discharge. [id number]/[facility] #: [id number] MTDD
== END 2019-02-15 12:00 | disposition home or self-care (01) | DRG 661 ==
LOC: ED 16:31 → SSU 21:32
PROVIDERS: ADMIT Internal Medicine; ATTEND Internal Medicine
PROC: 0T778DZ Dilation of Left Ureter with Intraluminal Device, Via Natural or Artificial Opening Endoscopic (ICD-10-PCS; principal; 2019-02-15)
PROC: BT1FYZZ Fluoroscopy of Left Kidney, Ureter and Bladder using Other Contrast (ICD-10-PCS; 2019-02-15)
DX: N13.2 Hydronephrosis with renal and ureteral calculous obstruction (principal); N17.9 Acute kidney failure, unspecified; I48.2 Chronic atrial fibrillation; I48.0 Paroxysmal atrial fibrillation; E11.51 Type 2 diabetes mellitus with diabetic peripheral angiopathy without gangrene; I71.2 Thoracic aortic aneurysm, without rupture; L40.50 Arthropathic psoriasis, unspecified; J98.09 Other diseases of bronchus, not elsewhere classified; E11.22 Type 2 diabetes mellitus with diabetic chronic kidney disease; I12.9 Hypertensive chronic kidney disease with stage 1 through stage 4 chronic kidney disease, or unspecified chronic kidney disease; N18.9 Chronic kidney disease, unspecified; I35.0 Nonrheumatic aortic (valve) stenosis; I25.10 Atherosclerotic heart disease of native coronary artery without angina pectoris; E78.5 Hyperlipidemia, unspecified; M54.16 Radiculopathy, lumbar region; L40.9 Psoriasis, unspecified; Z66 Do not resuscitate; J45.909 Unspecified asthma, uncomplicated; G47.33 Obstructive sleep apnea (adult) (pediatric); Z96.641 Presence of right artificial hip joint; R31.0 Gross hematuria; Z79.01 Long term (current) use of anticoagulants; Z86.718 Personal history of other venous thrombosis and embolism; Z95.5 Presence of coronary angioplasty implant and graft; Z95.1 Presence of aortocoronary bypass graft; Z86.73 Personal history of transient ischemic attack (TIA), and cerebral infarction without residual deficits; Z79.84 Long term (current) use of oral hypoglycemic drugs; Z79.899 Other long term (current) drug therapy; Z88.0 Allergy status to penicillin; Z88.2 Allergy status to sulfonamides; Z91.048 Other nonmedicinal substance allergy status; Z82.61 Family history of arthritis; Z80.9 Family history of malignant neoplasm, unspecified; Z87.891 Personal history of nicotine dependence; Z79.02 Long term (current) use of antithrombotics/antiplatelets
CPT/HCPCS: 36415; 74018; 74420; 80048; 80053; 80076; 81003; 81015; 83605; 83690; 85025; 85610; 85730; 86140; 87040; 87086; 87641; 93005; 99284; A9270-GY; C1876; J0696; J2250; J2270; J2704; J3010

== ENCOUNTER 2019-06-19 15:38 | Emergency (ER) | payer MEDICARE ==
[2019-06-19] MEDS ORDERED: HYDROcodone/ACETAMIN 5-325 MG* 1 TAB PO ONE (16:39)
[2019-06-19 16:49] LABS: ABS Eosinophils 0.4 10^3/ul (0-0.6); ABS Lymphocytes 1.6 10^3/ul (1.0-4.8); ABS Monocytes 0.7 10^3/ul (0-0.8); ABS Neutrophils 3.3 10^3/ul (1.5-7.7); Hematocrit 29 % (42-52); Hemoglobin 9.6 g/dL (14.0-18.0); Lymphocyte % 26.4 %; Mean Corpuscular HGB Conc 33 g/dL (31-36); Mean Corpuscular Hemoglobin 29 pg (27-31); Mean Corpuscular Volume 87 fL (80-94); Mean Platelet Volume 8.3 fL (7.4-10.4); Nucleated Red Blood Cells % 0.1; Platelet Count 272 10^3/uL (150-450); Red Blood Count 3.33 10^6 /uL (4.18-5.48); Red Cell Distribution Width 15 % (10-15)
--- OUTSIDE RECORDS SUMMARY | 2019-06-19 16:51 | XMS REPORT | Summary of Care ---
:1945 Author Organization [facility] Address [address] [place] [address] Care Team Providers Name Role Phone ElliottPuma chowdhury Primary Care Provider Valente Bonner MD Primary Optomechanical Technician/Telemarketer Reason for Visit Reason Comments Fall fell over a week ago and hurt back, middle and upper back pain, cannot twist, hard time getting out of chair. Encounter Details Date Type Department Care Team Description 06/12/2019 Office Visit [facility] Megan Ortiz, Acute bilateral thoracic back pain (Primary Dx); Practice MINING MANAGER Fall, initial encounter [address] [place] [address] [place] [address] [phone] Allergies Active Allergy Reactions Severity Noted Date Comments Gel Base Rash 06/27/2017 The gel on the ekg pads. Penicillins 10/08/2007 Sulfur 03/31/2002 documented as of this encounter (statuses as of 06/12/2019) Medications Medication Sig Dispensed Refills Start Date End Date Status potassium chloride Take 20 mEq 0 Active (K-TAB) 10 MEQ by mouth Oral Tab CR DAILY. NIFEdipine Take 30 mg by 0 Active (PROCARDIA XL) 30 mouth DAILY. MG (OSM) Oral TABLET SR [address] 0.4 mg 0 Active (NITROSTAT) 0.4 MG under tongue Sublingual SL Tab EVERY FIVE MINUTES NEEDED for chest pain. apixaban (ELIQUIS) Take 5 mg by 0 Active 5 MG Oral Tab mouth TWICE DAILY. clobetasol TWO TIMES 1 04/29/2018 Active (CORMAX) 0.05 % DAILY Apply externally NEEDED. Ointment gabapentin 300 mg TWICE 3 05/20/2018 Active (NEURONTIN) 300 MG DAILY. And Oral Cap may take one at hs prn pantoprazole Take 1 Tab by 90 Tab 3 01/30/2019 Active (PROTONIX) 40 MG mouth DAILY. Oral Tab EC Metoprolol TAKE 1 TABLET 135 Tab 3 03/03/2019 Active Succinate 200 MG BY MOUTH Oral TABLET SR 24 EVERY MORNING HR AND TAKE 1/2 TABLET BY MOUTH EVERY EVENING atorvastatin TAKE 1 TABLET 90 Tab 3 03/03/2019 Active (LIPITOR) 10 MG BY MOUTH Oral Tab EVERY DAY nortriptyline Take 2 Caps 180 Cap 3 03/26/2019 Active (PAMELOR) 10 MG by mouth Oral Cap EVERY BEDTIME. citalopram TAKE 1 TABLET 90 Tab 1 04/24/2019 Active (CELEXA) 40 MG BY MOUTH Oral Tab EVERY DAY glipiZIDE TAKE 1 TABLET 135 Tab 3 05/14/2019 Active (GLUCOTROL) 5 MG BY MOUTH Oral Tab EVERY MORNING AND TAKE 1/2 TABLET BY MOUTH EVERY EVENING DIRECTED enalapril Take 1 Tab by 180 Tab 3 06/02/2019 Active (VASOTEC) 10 MG mouth TWICE Oral DAILY. TabIndications: Essential hypertension HYDROcodone-acetam Take 1 Tab by 42 Tab 0 06/12/2019 Active inophen (NORCO) mouth TWO 5-325 MG Oral TIMES DAILY TabIndications: NEEDED Acute bilateral (Degnerative thoracic back pain joint disease of hip). Max Daily Amount: 2 Tabs. HYDROcodone-acetam Take 1 Tab by 42 Tab 0 04/01/2017 Discontinued inophen (NORCO) mouth TWO 9 (Reorder) 5-325 MG Oral Tab TIMES DAILY NEEDED (Degnerative joint disease of hip). Max Daily Amount: 2 Tabs. documented as of this encounter (statuses as of 06/12/2019) Active Problems Problem Noted Date Acute kidney injury 03/26/2019 Vertebral compression fracture 02/11/2018 Coronary artery disease 07/20/2014 Overview: Stenting of right coronary artery, left anterior descending, mid left circumflex and distal left circumflex, June 2014 at [facility] with Dr. Miles Other ossification of muscle, other site 02/22/2014 Overview: Right trochanteric region Carotid occlusion, right 08/04/2013 BMI 40.0-44.9, adult 01/18/2012 Overview: This patient's BMI has been calculated and is above average, and BMI management plan is completed. General patient education discussion including: obesity- related excess mortality, weight loss link to reduction of risk factors for cardiac and other diseases, importance of long- term maintenance treatment in weight loss Referral to quality assurance lab technician recommended. Case is managed by Lisbet NIXON MD . Carpal tunnel syndrome 04/19/2011 Overview: Bilateral mild to moderate. R>L. 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 EMG 04/12/11 Atrial fibrillation IRINA (obstructive sleep apnea) Overview: can't tolerate CPAP documented as of this encounter (statuses as of 06/12/2019) Resolved Problems Problem Noted Date Resolved Date BMI 39.0-39.9,adult 03/06/2011 03/11/2012 Obesity 03/13/2007 05/26/2012 documented as of this encounter (statuses as of 06/12/2019) Immunizations Name Administration Dates Next Due H1N1 Injectable Adult 07/04/2009 Influenza (IM) Preservative Free 06/04/2018, 06/08/2015 Influenza (IM) W/Pres 05/15/2017 Influenza Vaccine High Dose 05/29/2016, 06/23/2014 Influenza Vaccine Whole 07/11/2007 Kenalog (40 mg) 07/24/2011 PNEUMOCOCCAL POLYSACCHARIDE VACCINE 10/08/2013 Pneumococcal Conjugate(13 Valent) 11/25/2014 TDAP Vaccine 11/10/2012 documented as of this encounter Social History Tobacco Use Types Packs/Day Years Used Date Former Smoker Cigarettes 5 Smokeless Tobacco: Never Used Comments: quit 1985 Alcohol Use Drinks/Week oz/Week Comments Yes 0 Standard drinks or equivalent 0.0 socially Sex Assigned at Date Recorded Not on file Job Start Date Occupation Industry Not on file Not on file Not on file Travel History Travel Start Travel End No recent travel history available. documented as of this encounter Last Filed Vital Signs Vital Sign Reading Time Taken Comments Blood Pressure 102/70 06/12/2019 1:15 PM EDT Pulse 64 06/12/2019 1:15 PM EDT Temperature 36.2 06/12/2019 1:15 PM EDT C (97.2 F) Respiratory Rate 20 06/12/2019 1:15 PM EDT Oxygen Saturation 99% 06/12/2019 1:15 PM EDT Inhaled Oxygen Concentration - - Weight 94.3 kg (208 lb) 06/12/2019 1:15 PM EDT Height 170.2 cm (5' 7") 06/12/2019 1:15 PM EDT Body Mass Index 32.58 06/12/2019 1:15 PM EDT documented in this encounter Patient Instructions Patient InstructionsMegan Ortiz FNP - 06/12/2019 1:20 PM EDTHeat, Salon Pas patch as needed Medication as directed Xrays pending report documented in this encounter Progress Notes Megan Ortiz FNP - 06/12/2019 1:20 PM EDT PATIENT: Leon Gregory : 1945 DATE OF SERVICE: 06/12/2019 CHIEF COMPLAINT: Chief Complaint Patient presents with Fall fell over a week ago and hurt back, middle and upper back pain, cannot twist, hard time getting out of chair. Subjective HISTORY OF PRESENT ILLNESS: Leon Gregory is a 73-y.o. male. HPI Fell a week ago while trying to get into bathroom with walker - tennis ball got stuck and he lost balance- struck head and back - head OK, back still hurts. Immediate pain . Using topical raeann saldaña, heating pad and hydrocodone but he is out of that. Past Medical History: Diagnosis Date Allergic rhinitis 03/13/2007 Asthma 07/24/2007 Atrial fibrillation (HCC) Carotid occlusion, right CTS (carpal tunnel syndrome) bilateral, R>L. EMG 04/12/11 Depression 07/24/2007 Diabetes mellitus (HCC) 07/24/2007 DJD (DEGENERATIVE JOINT DISEASE) OF HIP right Duodenal ulcer, unspecified as acute or chronic, without mention of hemorrhage or perforation03/13/2007 w/ gastrointestinal bleed due to nonsteroidals GERD (gastroesophageal reflux disease) 07/24/2007 Hyperlipidemia 07/24/2007 Hypertension 07/24/2007 Kidney stones Obesity 03/13/2007 IRINA (obstructive sleep apnea) can't tolerate CPAP Psoriasis with arthropathy ([facility]) 07/24/2007 And psoriatic enthesopathy Psoriatic arthritis ([facility]) Family History Problem Relation Age of Onset Cancer Father Asthma Child Current Outpatient Medications Medication Sig apixaban (ELIQUIS) 5 MG Oral Tab Take 5 mg by mouth TWICE DAILY. atorvastatin (LIPITOR) 10 MG Oral Tab TAKE 1 TABLET BY MOUTH EVERY DAY citalopram (CELEXA) 40 MG Oral Tab TAKE 1 TABLET BY MOUTH EVERY DAY clobetasol (CORMAX) 0.05 % Apply externally Ointment TWO TIMES DAILY NEEDED. enalapril (VASOTEC) 10 MG Oral Tab Take 1 Tab by mouth TWICE DAILY. gabapentin (NEURONTIN) 300 MG Oral Cap 300 mg TWICE DAILY. And may take one at hs prn glipiZIDE (GLUCOTROL) 5 MG Oral Tab TAKE 1 TABLET BY MOUTH EVERY MORNING AND TAKE 1/2 TABLET BY MOUTH EVERY EVENING DIRECTED HYDROcodone-acetaminophen (NORCO) 5-325 MG Oral Tab Take 1 Tab by mouth TWO TIMES DAILY NEEDED (Degnerative joint disease of hip). Max Daily Amount: 2 Tabs. Metoprolol Succinate 200 MG Oral TABLET SR 24 HR TAKE 1 TABLET BY MOUTH EVERY MORNING AND TAKE 1/2 TABLET BY MOUTH EVERY EVENING NIFEdipine (PROCARDIA XL) 30 MG (OSM) Oral TABLET SR 24 HR Take 30 mg by mouth DAILY. nitroglycerin (NITROSTAT) 0.4 MG Sublingual SL Tab Place 0.4 mg under tongue EVERY FIVE MINUTES NEEDED for chest pain. nortriptyline (PAMELOR) 10 MG Oral Cap Take 2 Caps by mouth EVERY BEDTIME. pantoprazole (PROTONIX) 40 MG Oral Tab EC Take 1 Tab by mouth DAILY. potassium chloride (K-TAB) 10 MEQ Oral Tab CR Take 20 mEq by mouth DAILY. No current facility-administered medications for this visit. Allergies Allergen Reactions Gel Base Rash The gel on the ekg pads. Penicillins Sulfur Social History Socioeconomic History Marital status: Spouse name: Not on file Number of children: Not on file Years of education: Not on file Highest education level: Not on file Occupational History Not on file Social Needs Financial resource strain: Not on file Food insecurity: Worry: Not on file Inability: Not on file Transportation needs: Medical: Not on file Non-medical: Not on file Tobacco Use Smoking status: Former Smoker Years: 5.00 Types: Cigarettes Smokeless tobacco: Never Used Tobacco comment: quit 1985 Substance and Sexual Activity Alcohol use: Yes Alcohol/week: 0.0 standard drinks Comment: socially Drug use: No Sexual activity: Never Lifestyle Physical activity: Days per week: Not on file Minutes per session: Not on file Stress: Not on file Relationships Social connections: Talks on phone: Not on file Gets together: Not on file Attends judaism service: Not on file Active member of club or organization: Not on file Attends meetings of clubs or organizations: Not on file Relationship status: Not on file Intimate partner violence: Fear of current or ex partner: Not on file Emotionally abused: Not on file Physically abused: Not on file Forced sexual activity: Not on file Other Topics Concern Back Care Not Asked Bike Helmet Not Asked Blood Transfusions Not Asked Caffeine Concern Not Asked Exercise Not Asked Hobby Hazards Not Asked International Travel Not Asked Service Not Asked Occupational Exposure Not Asked Seat Belt Not Asked Self-Exams Not Asked Sleep Concern Not Asked Special Diet Not Asked Stress Concern Not Asked Weight Concern Not Asked Social History Narrative Recently retired Happy with this now REVIEW OF SYSTEMS: Review of Systems Constitutional: Positive for malaise/fatigue. Negative for chills and fever. Gastrointestinal: No bowel changes Genitourinary: No bladder changes Musculoskeletal: Positive for back pain and myalgias. Neurological: Negative for dizziness, tingling, weakness and headaches. Objective PHYSICAL EXAM: VITALS: BP 102/70 (BP Location: Left arm, Patient Position: Sitting) | Pulse 64 | Temp 97.2 F(36.2 C) (Tympanic) | Resp 20 | Ht 5' 7" (1.702 m) | Wt 208 lb (94.3 kg) | SpO2 99% | BMI 32.58 kg/m Body mass index is 32.58 kg/m. Physical Exam Vitals signs reviewed. Constitutional: Appearance: Normal appearance. HENT: Head: Normocephalic and atraumatic. Neck: Musculoskeletal: Normal range of motion. No neck rigidity or muscular tenderness. Musculoskeletal: Thoracic back: He exhibits decreased range of motion, tenderness and spasm. Back: Comments: In wheelchair today Skin: General: Skin is warm and dry. Capillary Refill: Capillary refill takes 2 to 3 seconds. Neurological: Mental Status: He is alert and oriented to person, place, and time. Cranial Nerves: Cranial nerves are intact. Motor: No weakness or tremor. ASSESSMENT / IMPRESSION: ICD-9-CM ICD-10-CM 1. Acute bilateral thoracic back pain 724.1 M54.6 XR THORACIC SPINE 3 VIEWS ( STANDARD) HYDROcodone-acetaminophen (NORCO) 5-325 MG Oral Tab 2. Fall, initial encounter E888.9 [id number].XXXA Plan Heat, Salon Pas patch as needed Medication as directed Xrays pending report Author: ALLYSSA Taylor 06/12/2019 14:23 documented in this encounter Plan of Treatment Date Type Specialty Care Team Description 07/02/2019 Office Visit Internal Medicine Puma Nixon MD [address] [place] [address] [phone] Name Type Priority Associated Diagnoses Date/Time XR THORACIC SPINE 3 Imaging Routine Acute bilateral thoracic 06/12/2019 2: 13 PM VIEWS (STANDARD) back pain EDT Name Type Priority Associated Diagnoses Order Schedule XR THORACIC SPINE 3 Imaging Routine Acute bilateral thoracic Expected: 12/2018, VIEWS (STANDARD) back pain Expires: 06/11/2020 Health Maintenance Due Date Last Done Comments ZOSTER IMMUNIZATION SERIES 1993 (1 of 2) MEDICARE ANNUAL WELLNESS 05/29/2017 05/29/2016 (Previously VISIT completed), 03/31/2015 (Previously completed) INFLUENZA VACCINE (#1) 2019 06/04/2018, 05/15/2017, 05/29/2016, Additional history exists HEMOGLOBIN A1C 08/08/2019 02/06/2019, 10/29/2018, 06/11/2018, Additional history exists FOOT EXAM 11/08/2019 11/07/2018, 11/07/2018, 10/10/2017, Additional history exists FALL RISK ASSESSMENT 01/08/2020 01/07/2019, 01/07/2019 LIPID DISORDER SCREENING 03/03/2020 03/03/2019, 10/29/2018, 06/11/2018, Additional history exists DEPRESSION SCREENING 03/26/2020 03/26/2019, 03/26/2019 Diabetic Eye Exam 06/02/2021 06/02/2019, 11/07/2018, 11/07/2018, Additional history exists AAA SCREENING/SURVEILLANCE Completed 04/27/2013 PNEUMOCOCCAL 65+YRS Completed 11/25/2014, 10/08/2013 HPV IMMUNIZATION SERIES Aged Out No longer eligible based on patient's age to complete this topic MENINGOCOCCAL VACCINE IMM Aged Out No longer eligible based on patient's age to complete this topic documented as of this encounter Goals Goal Patient Goal Associated Recent Patient-Stated? Author Type Problems Progress Blood Pressure Blood Pressure Type 2 diabetes 102/70 No [place], < 140/90 mellitus with (06/12/2019 MD Puma diabetic 1:15 PM EDT) polyneuropathy, without long-term current use of insulin Note: Hypertension Care Plan Based on the patient's clinical history and according to JNC 8 guidelines target blood pressure goal is less than 140/90. Based on the patient's last blood pressure of BP: 136/100 mmHg the patient is at above goal. As your provider, it is important that I advise you regarding: your current medications and help you with any challenges you may face taking your medications as directed (ex. instructions, cost, side effects, and interactions). lifestyle changes: exercise, weight reduction, diet, dietary sodium reduction and medication compliance your clinical goals and how you can achieve success: weight reduction, exercise plan and diet improvements medication management: adjusted medications as appropriate patient education/self-management tools provided: Current self-management tools adequate To successfully manage my Hypertension I will: monitor my blood pressure daily, understanding that my goal is less than 140/ 90 per my healthcare provider's recommendation. I will schedule an appointment with my provider if consistent abnormal readings greater than 160/100. take medications every day as prescribed by my healthcare provider and if unable to take them I will discuss with my provider. monitor for symptoms of chest pain, chest tightness/pressure, irregular heartbeat, persistent dizziness, radiating arm pain, and neck or jaw pain. If any of these symptoms are noticed I will seek medical attention immediately by calling 911 exercise/walk 30 minutes 5 day(s) per week. If I experience chest pain, chest tightness, or shortness of breath, I will seek medical attention immediately. follow a diet rich in fruits, vegetables, and low-fat dairy products with reduced content of saturated & total fat. I will reduce my sodium intake daily. An example is the DASH diet. To obtain more information please refer to the DASH Eating Plan listed in Educational Resources. record my blood pressure results. [employer] is safe and secure way for you to do this in your medical record online. try to obtain an ideal body weight. My recent weight was Weight: 232 lb ( 105.235 kg). My weight loss goal for my next office visit is 227 lb. limit alcohol consumption. For men two drinks per day and women one drink per day. if currently smoking, will discuss how to quit smoking with my healthcare provider and work towards quitting. Educational Resources: National Heart, Lung, & Blood [place] http://nhlbi.nih.gov/hbp/index.html The DASH Diet Eating Plan http://www.nhlbi.nih.gov/health/health-topics/ topics/dash/ Academy of Nutrition & DIetetics http://eatright.org National Smoking Cessation Site http://smokefree.gov Blood Pressure < Blood Pressure 102/70 (06/12/2019 1:15 No Puma Nixon MD 140/90 PM EDT) Note: This is an individualized treatment (blood pressure) goal for Leon Gregory: Displayed above (on the left) is your goal for blood pressure control. Your most recent blood pressure is also shown above, on the right. You should try to achieve blood pressures that are lower than your goal listed above (on the left). Depression screen (PHQ-9) Depression 21 (03/26/2019 11:22 AM Puma Luna MD total score < 5 EDT) Note: This is an individualized treatment (depression) goal for Leon Gregory: Displayed above is your goal for a depression screening (PHQ-9) score that would indicate good control of your depression. Diabetes < 7.0 Diabetes Essential hypertension 5.8 (02/06/2019 No KanwalPuma berrios, 11:41 AM EDT) Note: Diabetes Care Plan According to current 2014 ADA guidelines the patient A1C goal is less than 7. The patient's last A1C was Lab Results Lab Results Value Date/Time GLYCO 7.0 07/01/2014 1600 GLYCO 8.5 08/04/2013 1347 [id number] 6.6 01/13/2014 The patient is:at goal . As your provider, it is important that I advise you regarding: your current medications and help you with any challenges you may face taking your medications as directed (ex. instructions, cost, side effects, and interactions). lifestyle changes:exercise, diet, glucose monitoring and medication compliance your clinical goals and how you can achieve success:weight reduction, exercise plan, diet management and glucose monitoring medication management: adjusted medications as appropriate patient education/self-management tools provided: Current self-management tools adequate To successfully manage my Diabetes I will: have lab work every six months if my previous A1c was 7 or less. If my results were greater than 7, I will have lab work every three months. My goal is to control my diabetes by keeping A1c below 7.0 take medications every day as prescribed by my healthcare provider and if unable to take them I will discuss with my provider. exercise/walk 30 minutes 5 day(s) per week. If I experience chest pain, chest tightness, or shortness of breath, I will seek medical attention immediately. check feet daily. If sores or irritation are noticed, will seek medical attention. follow a low carbohydrate and low fat diet. My goal is an LDL (bad cholesterol) number less than 100 when I have my routine lab work. check blood sugar as instructed and will call my healthcare provider if the results are consistently below 70 or above 300. I will monitor for symptoms of low blood sugar (feeling faint, dizzy, lig htheaded, jittery, sweaty, or hungry), if symptoms are noticed, I will eat or drink something (glucose tabs, orange juice, candy) to help raise sugar. record my blood sugar results (including dextrose sticks). [employer] is safe and secure way for you to do this in your medical record online. try to obtain an ideal body weight. My recent weight was Weight: 232 lb ( 105.235 kg). My weight loss goal for my next office visit is 227 lbs. to prevent kidney problems common to people with diabetes I will complete a yearly Microalbumin to check for protein in urine. I will talk with my healthcare provider about medications to prevent diabetic renal disease. to prevent diabetic retinopathy I will see an eye doctor yearly. A yearly dilated eye exam helps prevent blindness. if currently smoking, will discuss how to quit smoking with my healthcare provider and work towards quitting. Education Resources: [place] Diabetic Association Site http://diabetes.org Academy of Nutrition & Dietetics Site http://eatright.org National Smoking Cessation Site http://smokefree.gov Glycohemoglobin A1c < 7.0 Diabetes 5.8 (02/06/2019 11:41 AM No Puma Nixon MD EDT) Note: This is an individualized treatment (diabetes control, HgbA1C) goal for Leon Aguillon Gregory: Displayed above is your progress towards your HgbA1C goal. Your goal is shown above (on the left); your most recent HgbA1C is shown on the right. Note that lower numbers are better. Weight loss vs. 18 mo Lifestyle 20 (06/12/2019 1:15 PM EDT) No Puma Nixon MD max (lbs) >= 10 Note: This is an individualized lifestyle goal for Leon Gregory: Your body mass index (BMI) is more than 30. You should lose weight. A reasonable starting goal is to lose 10 pounds. Displayed above is how many pounds you have lost thus far towards your 10 pound weight loss goal. Keep a regular sleep schedule Lifestyle Puma Luna MD Note: This is an individualized lifestyle goal for Leon Gregory: Please maintain a regular sleep schedule. This may help with some symptoms of depression. Keep immunizations current Lifestyle No Puma Nixon MD Note: This is an individualized lifestyle goal for Leon Gregory: Please be sure to keep up-to-date on recommended immunizations. For example, this would include a yearly influenza vaccine. Immunization status can be seen by looking at the Health Maintenance sections of your [employer], Plan of Care, and any After Visit Summaries. Take all prescribed medications as directed Self-management Puma Luna MD Note: This is an individualized self-management goal for Leon Gregory: Please take all prescribed medications as directed. 1. Do not skip doses. If you cannot afford your medications, talk with your doctor. 2. Use a pill reminder system such as a pill box if needed. Your pharmacist can help you with this. 3. Contact your Pharmacy 5 days before your medication runs out. If you cannot take your medications for any reasons, talk with your doctor. 4. Please bring all of your medication bottles and inhalers (or a list of all your medications/inhalers) with you to every visit. Potential barriers to meeting all of your care plan goals will continue to be addressed on an ongoing basis. documented as of this encounter Results Not on filedocumented in this encounter Visit Diagnoses Diagnosis Acute bilateral thoracic back pain - Primary Fall, initial encounter documented in this encounter Insurance Payer Benefit Plan / Subscriber ID Effective Dates Phone Address Type Group MVP GOLD MEDICARE MVP GOLD MEDICARE xxxxxxxxxxx 2010-Present [facility] [employer] ADVANTAGE Guarantor Name Account Type Relation to Date of Phone Billing Patient Address Leon Gregory Personal/Family 1945 [phone] [id number] [phone] [place], [place] (Work) [id number] documented as of this encounter
--- OUTSIDE RECORDS SUMMARY | 2019-06-19 16:51 | XMS REPORT | Summary of Care ---
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 seen Ms Ortiz 06/12/19 with x-rays (not read yet), Pt did have fall in [place] on 06/05/19 Kidney Stone was suppose to have left ureter stent removed today at [facility], but unable to make the drive d/t back pain, Dr Hess will remove stent 06/24/19 Psoriasis off infusion since January, psoriasis is not controlled (?? contributing to his pain) , Dr Christie trying to get a PA for ozempic Hypertension f/u BP 150/82 Encounter Details Date Type Department Care Team Description 06/17/2019 Office Visit [place] [facility] Puma Nixon MD Thoracic spine pain (Primary Dx); Medicine [address] [facility] Collapsed vertebra, not elsewhere classified, site unspecified, initial encounter for fracture (HCC); [address] [place] [address] Acute [place] [address] [phone] Allergies Active Allergy Reactions Severity Noted Date Comments Gel Base Rash 06/27/2017 The gel on the ekg pads. Penicillins 10/08/2007 Sulfur 03/31/2002 documented as of this encounter (statuses as of 06/18/2019) Medications Medication Sig Dispensed Refills Start Date End Date Status potassium chloride Take 20 mEq by 0 Active (K-TAB) 10 MEQ Oral Tab mouth DAILY. CR NIFEdipine (PROCARDIA Take 30 mg by 0 Active XL) 30 MG (OSM) Oral mouth DAILY. TABLET SR [address] 0.4 mg 0 Active (NITROSTAT) 0.4 MG under tongue Sublingual SL Tab EVERY FIVE MINUTES NEEDED for chest pain. apixaban (ELIQUIS) 5 MG Take 5 mg by 0 Active Oral Tab mouth TWICE DAILY. clobetasol (CORMAX) TWO TIMES DAILY 1 04/29/2018 Active 0.05 % Apply externally NEEDED. Ointment gabapentin (NEURONTIN) 300 mg TWICE 3 05/20/2018 Active 300 MG Oral Cap DAILY. And may take one at hs prn pantoprazole (PROTONIX) Take 1 Tab by 90 Tab 3 01/30/2019 Active 40 MG Oral Tab EC mouth DAILY. Metoprolol Succinate TAKE 1 TABLET BY 135 Tab 3 03/03/2019 Active 200 MG Oral TABLET SR MOUTH EVERY 24 HR MORNING AND TAKE 1/2 TABLET BY MOUTH EVERY EVENING atorvastatin (LIPITOR) TAKE 1 TABLET BY 90 Tab 3 03/03/2019 Active 10 MG Oral Tab MOUTH EVERY DAY nortriptyline (PAMELOR) Take 2 Caps by 180 Cap 3 03/26/2019 Active 10 MG Oral Cap mouth EVERY BEDTIME. citalopram (CELEXA) 40 TAKE 1 TABLET BY 90 Tab 1 04/24/2019 Active MG Oral Tab MOUTH EVERY DAY glipiZIDE (GLUCOTROL) 5 TAKE 1 TABLET BY 135 Tab 3 05/14/2019 Active MG Oral Tab MOUTH EVERY MORNING AND TAKE 1/2 TABLET BY MOUTH EVERY EVENING DIRECTED Additional information Patient taking differently: 5 mg QAM, Reported on 06/17/2019 4:25 PM enalapril (VASOTEC) 10 Take 1 Tab by 180 Tab 3 06/02/2019 Active MG Oral TabIndications: mouth TWICE Essential hypertension DAILY. Cholecalciferol Take by mouth 0 Active (VITAMIN D3) 1000 units DAILY. Oral Tab HYDROcodone-acetaminoph Take 1 Tab by 0 06/17/2019 Active en (NORCO) 5-325 MG mouth EVERY Oral TabIndications: FOUR HOURS Acute bilateral NEEDED (upper thoracic back pain back pain). Max Daily Amount: 4 Tabs. 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 Max Daily Amount: 2 Tabs. documented as of this encounter (statuses as of 06/18/2019) Active Problems Problem Noted Date Acute kidney injury 03/26/2019 Vertebral compression fracture 02/11/2018 Coronary artery disease 07/20/2014 Overview: Stenting of right coronary artery, left anterior descending, mid left circumflex and distal left circumflex, June 2014 at [facility] with Dr. Miles Other ossification of muscle, [...] maintenance treatment in weight loss Referral to drafter tool design recommended. Case is managed by Lisbet NIXON [...] as of this encounter (statuses as of 06/18/2019) Resolved Problems Problem Noted Date Resolved Date BMI 39.0-39.9,adult 03/06/2011 03/11/2012 Obesity 03/13/2007 05/26/2012 documented as of this encounter (statuses as of 06/18/2019) Immunizations Name Administration Dates Next Due H1N1 [...] Sign Reading Time Taken Comments Blood Pressure 150/82 06/17/2019 4:18 PM EDT Pulse 72 06/17/2019 4:18 PM EDT Temperature 36.8 06/17/2019 4:18 PM EDT C (98.2 F) Respiratory Rate - - Oxygen Saturation 98% 06/17/2019 4:18 PM EDT Inhaled Oxygen Concentration - - Weight 94.3 kg (208 lb) 06/17/2019 4:18 PM EDT Height 170.2 cm (5' 7") 06/17/2019 4:18 PM EDT Body Mass Index 32.58 06/17/2019 4:18 PM EDT documented in this encounter Patient Instructions Patient InstructionsPuma Nxion MD - 06/17/2019 4:00 PM EDTContinue same medicines, but ok to take more hydrocodone / acetaminophen, 1 tab every 4 hrs as needed, max 4 tabs a day. Watch for confusion Get MRI thoracic spine at [facility] [place]. Our office will call you in the AM to schedule We'll decide what else to do after that. documented in this encounter Progress Notes Puma Nixon MD - 06/17/2019 4:00 PM EDT PATIENT: Leon Gregory : 1945 DATE OF SERVICE: 06/17/2019 CHIEF COMPLAINT: Chief Complaint Patient presents with Back Pain still with mid back pain, c/o pain along right paravertebral area, hurts to do anything. seen Ms Ortiz 06/12/19 with x-rays (not read yet), Pt did have fall in [place] on 06/05/19 Kidney Stone was suppose to have left ureter stent removed today at [facility], but unable to make the drive d/t back pain, Dr Hess will remove stent 06/24/19 Psoriasis off infusion since January, psoriasis is not controlled (?? contributing to his pain) , Dr Christie trying to get a PA for ozempic Hypertension f/u BP 150/82 Subjective HISTORY OF PRESENT ILLNESS: Leon Gregory is a 73-y.o. male. HPI Back pain, upper after fall in tub 2 wks ago. Saw Ms. Ortiz, who ordered hydrocodone but it is not that helpful. Also it seemed to cause intermittent confusion. X-rays of the thoracic spine show possible new compression fracture at T8, along with other ones previously seen. No problems with urination or bowel movement. Some pain with cough and sneeze. Pain with bending forward and rotational axial movement. Dr Christie planning to use Otezla for psoriatic arthritis, but patient has not started it yet. He asks if his pain could be from psoriatic arthritis and I told him that the arthritis could be compounding the pain but because of its sudden nature coinciding with his fall, that a compression fracture ishighly suspected. He had left ureteral stones operated in [place], and has a left ureteral stent but could not make the trip. He will have Dr. Hess remove it locally on June 24. Urine today shows blood and protein, not unexpected given his stent. No obvious sign of infection. Blood pressure mildly elevated, probably exacerbated by pain. 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 atorvastatin (LIPITOR) 10 MG Oral Tab TAKE 1 TABLET BY MOUTH EVERY DAY Cholecalciferol (VITAMIN D3) 1000 units Oral Tab Take by mouth DAILY. citalopram (CELEXA) 40 MG Oral Tab TAKE [...] 1/2 TABLET BY MOUTH EVERY EVENING DIRECTED (Patient taking differently: 5 mg EVERY MORNING.) HYDROcodone-acetaminophen (NORCO) 5-325 MG Oral Tab Take [...] Smokeless tobacco: Never Used Tobacco comment: quit 1984 Substance and Sexual Activity Alcohol use: Yes Alcohol/week: 0.0 standard drinks Comment: socially Drug use: No Sexual activity: Never Lifestyle Physical activity: Days per week: Not on file Minutes per session: Not on file Stress: Not on file Relationships Social connections: Talks on phone: Not on file Gets together: Not on file Attends pentecostalism service: Not on file Active member of [...] Happy with this now REVIEW OF SYSTEMS: ROS see history of present illness otherwise noncontributory Objective PHYSICAL EXAM: VITALS: BP 150/82 | Pulse 72 | Temp 98.2 F (36.8 C) | Ht 5' 7" ( 1.702 m) | Wt 208 lb (94.3 kg) | SpO2 98% | BMI 32.58 kg/m Body mass index is 32.58 kg/m. Physical Exam Reveals an elderly man in no distress as long as he is sitting in his wheelchair. When he has to lean forward or turn he winces in pain. HEENT is unremarkable. No scleral icterus. Neck has no JVD thyromegaly or cervical adenopathy in the anterior or posterior chains. No supraclavicular adenopathy. Lungs clear. Heart regular. He is tender to palpation in the mid thoracic spine, especially on the right side. No right flank tenderness no left flank tenderness. He can move all his limbs, and can get up out of the wheelchair, but it causes pain in his spine. I reviewed the thoracic spine x-rays with the patient and showed him where there is new compression fracture evident at T8 compared to prior studies done March 08, 2016. There also were milder compression deformities suggesting fractures at T4 and T7. ASSESSMENT / IMPRESSION: ICD-9-CM ICD-10-CM 1. Thoracic spine painsuspect acute compression fracture at T8 724.1 M54.6 MR THORACIC SPINE WO CONTRAST 2. Collapsed vertebra, not elsewhere classified, site unspecified, initial encounter for fracture (HCC) 733.13 M48.50XA 3. Acute bilateral thoracic back pain 724.1 M54.6 HYDROcodone-acetaminophen ( NORCO) 5-325 MG Oral Tab Patient Instructions Continue same medicines, but ok to take more hydrocodone / acetaminophen, 1 tab every 4 hrs as needed, max 4 tabs a day. Watch for confusion Get MRI thoracic spine at [facility]. Our office will call you in the AM to schedule We'll decide what else to do after that. Author: Puma Nixon MD 06/17/2019 16:56 documented in this encounter Plan of Treatment Date Type Specialty Care Team Description 07/02/2019 Office Visit Internal Medicine Puma Nixon MD [address] [place] [address] [phone] Name Type Priority Associated Diagnoses Order Schedule MR THORACIC SPINE WO Imaging Routine Thoracic spine pain Expected: 2018, CONTRAST Expires: 06/16/2020 Health Maintenance Due Date Last Done Comments ZOSTER IMMUNIZATION SERIES 1993 (1 of 2) MEDICARE ANNUAL WELLNESS 05/29/2017 05/29/2016 (Previously VISIT completed), 03/31/2015 (Previously completed) INFLUENZA VACCINE (#1) 2019 06/04/2018, 05/15/2017, 05/29/2016, Additional history exists HEMOGLOBIN A1C 08/08/2019 02/06/2019, 10/29/2018, 06/11/2018, Additional history exists FOOT EXAM 11/08/2019 11/07/2018, 11/07/2018, 10/10/2017, Additional history exists LIPID DISORDER SCREENING 03/03/2020 03/03/2019, 10/29/2018, 06/11/2018, Additional history exists DEPRESSION SCREENING 03/26/2020 03/26/2019, 03/26/2019 FALL RISK ASSESSMENT 06/17/2020 06/17/2019, 06/17/2019 Diabetic Eye Exam 06/02/2021 06/02/2019, 11/07/2018, 11/07/2018, [...] Blood Pressure Blood Pressure Type 2 diabetes 150/82 No Skezas, < 140/90 mellitus with (06/17/2019 MD Puma diabetic 4:18 PM EDT) polyneuropathy, without long-term current use [...] Educational Resources. record my blood pressure results. [facility] is safe and secure way for you [...] Educational Resources: National Heart, Lung, & Blood Neeses http://nhlbi.nih.gov/hbp/index.html The DASH Diet Eating Plan http://www.nhlbi.nih.gov/health/health-topics/ topics/dash/ Academy of Nutrition & DIetetics http://eatright.org National Smoking Cessation Site http://smokefree.gov Blood Pressure < Blood Pressure 150/82 (06/17/2019 4:18 No Puma Nixon MD 140/90 PM EDT) [...] screen (PHQ-9) Depression 21 (03/26/2019 11:22 AM No Puma Nixon MD total score < 5 EDT) Note: This is an individualized treatment (depression) goal for Leon Gregory: Displayed above is your goal for a depression screening (PHQ-9) score that would indicate good control of your depression. Diabetes < 7.0 Diabetes Essential hypertension 5.8 (02/06/2019 No Puma Nixon, 11:41 AM EDT) Note: Diabetes Care Plan According to current 2014 ADA guidelines the patient A1C goal is less than 7. The patient's last A1C was Lab Results Lab Results Value Date/Time GLYCO 7.0 07/01/2014 1600 GLYCO 8.5 08/04/2013 1347 [id number] 6.6 01/13/2014 The patient is:at goal . [...] my blood sugar results (including dextrose sticks). [facility] is safe and secure way for you [...] provider and work towards quitting. Education Resources: [place] Diabetic Association Site http://diabetes.org Academy of Nutrition & Dietetics Site http://eatright.org National Smoking Cessation Site http://smokefree.gov Glycohemoglobin A1c < 7.0 Diabetes 5.8 (02/06/2019 11:41 AM No Puma Nixon MD EDT) Note: This is an individualized treatment (diabetes control, HgbA1C) goal for Leon Gregory: Displayed above is your progress towards your HgbA1C goal. Your goal is shown above (on the left); your most recent HgbA1C is shown on the right. Note that lower numbers are better. Weight loss vs. 18 mo Lifestyle 20 (06/17/2019 4:18 PM EDT) No Puma Nixon MD max [...] goal. Keep a regular sleep schedule Lifestyle No Puma Nixon MD Note: This is an individualized lifestyle goal for Leon Henna Gregory: Please maintain a regular sleep schedule. [...] Take all prescribed medications as directed Self-management No Puma Nixon MD Note: This is an individualized self-management [...] ongoing basis. documented as of this encounter Procedures Procedure Name Priority Date/Time Associated Diagnosis Comments URINE DIP MANUAL Routine 06/17/2019 4:15 PM Results for this (AMB POCT) EDT procedure are in the results section. documented in this encounter Results URINE DIP MANUAL (AMB POCT) (06/17/2019 4:15 PM EDT) URINE GLUCOSE (POCT) Negative Negative mg/dl [facility] POCT URINE BILIRUBIN Negative Negative [facility] (POCT) POCT Urine Ketones (POCT) Negative Negative [facility] POCT URINE SPECIFIC 1.020 1.005 - 1.030 [facility] GRAVITY (POCT) POCT URINE BLOOD (POCT) Large (A) Negative [facility] POCT URINE PH (POCT) 5.0 5.0 - 8.0 [facility] POCT URINE PROTEIN (POCT) 300 (A) Negative mg/dl [facility] POCT URINE UROBILINOGEN 0.2 0.2 - 1.0 mg/dl [facility] (POCT) POCT URINE NITRITES (POCT) Negative Negative [facility] POCT URINE LEUKOCYTES Trace (A) Negative Cells/uL [facility] (POCT) POCT Specimen Urine - Urine specimen (specimen) Performing Organization Address City/State/Zipcode Phone Number [facility] [address] [place] [address] documented in this encounter Visit Diagnoses Diagnosis Thoracic spine pain - Primary Pain in thoracic spine Collapsed vertebra, not elsewhere classified, site unspecified, initial encounter for fracture (HCC) Acute bilateral thoracic back pain documented in this encounter Insurance Payer Benefit Plan / Subscriber ID Effective Dates Phone Address Type Group [facility] MEDICARE [facility] MEDICARE xxxxxxxxxxx 2010-Present [facility] [employer] Guarantor Name Account Type Relation to Date of Phone Billing Patient Address Leon Gregory Personal/Family 1945 [phone] [facility] [facility] [facility] (Home) [place] [phone] [place], [place] (Work) [id number] documented as of this encounter
--- OUTSIDE RECORDS SUMMARY | 2019-06-19 16:51 | XMS REPORT | Continuity of Care Document ---
:1945 External Reference #:[id number] Author Name Valente Christie M.D. (transmitted by agent of provider Roslyn Walsh) Address [address] [place] [address] Care Team Providers Name Role Phone Puma Nixon MD - Internal Medicine Care Team Information Health And Safety Coordinator Lavinia Gee MD - Hand Surgery Care Team Information Health And Safety Coordinator Problems Active Problems Provider Date Postoperative Wound Closure Encounter Krishan Miles M.D., [facility], Onset: 2013 [facility] Coronary arteriosclerosis Brandi Cohen M.D. Onset: 07/06/2014 Atrial fibrillation Brandi Cohen M.D. Onset: 07/06/2014 Chest pain Brandi Cohen M.D. Onset: 07/06/2014 Peripheral vascular disease Brandi Cohen M.D. Onset: 09/28/2014 Essential hypertension Brandi Cohen M.D. Onset: 09/28/2014 Mixed hyperlipidemia Brandi Cohen M.D. Onset: 09/28/2014 Localized, primary osteoarthritis of Genna Palacio M.D. Onset: 04/13/2015 the pelvic region and thigh Dizziness and giddiness Brandi Cohen M.D. Onset: 05/11/2015 Aortic valve disorder Brandi Cohen M.D. Onset: 05/11/2015 Chronic atrial fibrillation Brandi Cohen M.D. Onset: 10/06/2015 Preoperative cardiovascular Brandi Cohen M.D. Onset: 10/06/2015 examination Carotid artery occlusion Brandi Cohen M.D. Onset: 01/17/2016 Pleural effusion, not elsewhere Gabbie Cervantes MD Onset: 06/05/2017 classified Aneurysm of thoracic aorta Brandi Cohen M.D. Onset: 07/26/2017 Psoriasis with arthropathy Genna Palacio M.D. Onset: 02/28/2018 Localized, primary osteoarthritis Genna Palacio M.D. Onset: 08/15/2018 Paroxysmal atrial fibrillation Brandi Cohen M.D. Onset: 03/27/2019 Social History Type Date Description Comments Sex Unknown Tobacco Use Start: Unknown End: Former Cigarette Smoker Formerly smoked Unknown cigar and pipe as well Smoking Status Reviewed: 06/05/19 Former Cigarette Smoker Formerly smoked cigar and pipe as well ETOH Use Denies alcohol use Tobacco Use Start: Unknown End: Patient is a former quit in early Unknown smoker Recreational Drug Use Denies Drug Use Exercise Type/Frequency Exercises rarely walking around home Allergies, Adverse Reactions, Alerts Active Allergies Reaction Severity Comments Date Penicillins childhood reaction 03/05/2014 Holter Monitor Electrodes red at site allergic to gel? 05/18/2014 Sulfa Antibiotics Urticaria 06/18/2018 Inactive Allergies Sulfur Urticaria 03/05/2014 Medications Active Medications SIG Qnty Indications Ordering Date Provider Otezla take 1 tablet by 90tabs Z79.899 aVlente Christie, 06/05/2019 30mg Tablets mouth twice a day M.D. (after finishing the sample pack) Otezla day1:10mg in the 55units L40.50 Valente Christie, 06/05/2019 10&20&30mg morning, day2:10 mg M.D. TBPK bid,day3: 10mg in the morning, 20mg at night, day4:20mg twice a day, day5: 20mg in the m Triamcinolone apply thin film 453.600gm Valente Christie, 04/29/2019 Acetonide twice daily to M.D. 0.1% Cream psoriasis Simponi Aria Valente Christie, 12/17/2018 50mg/4ML M.D. Solution BD 1ML for use weekly with 90units Valente Christie, 04/29/2018 Syringe/Needle/Slip sc methotrexate M.D. Tip/Subq/26G X 5/8" 26G X 5/8" 1 ML Misc Gabapentin take one 90caps Valente Christie, 02/13/2018 300mg tablet/capsule by Vicki Capsules mouth three times daily ongoing Hydrocodone-Acetamin take one 60tabs L40.50 Valente Christie, 02/13/2018 ophen capsule/tablet by Vicki 7.5-325mg mouth twice daily Tablets as needed for acute pain mdd 2 D3 High Potency take one 90caps Valente Christie, 09/13/2017 capsule/tablet M.DCarlos 1000Unit Capsules daily by mouth Eliquis 1 by mouth twice a 180tabs Donna Nicole, 09/04/2017 5mg Tablets day FIELD WORKER Urea 20 Intensive apply twice daily 85gm Valente Christie, 08/22/2017 Hydrating Cream M.DCarlos 20% Cream Atorvastatin Calcium 1 by mouth every 90tabs Brandi Cohen, 07/11/2016 day M.D. 10mg Tablets Nifedipine ER 1 by mouth every 90tabs Brandi Cohen, 05/11/2015 30mg day M.D. Tablets ER 24HR Klor-Con M10 2 by mouth every 180tabs Brandi Cohen, 12/23/2012 10Meq day M.D. Tablets ER Citalopram 1 po qd 30tabs Beck Molina, 12/05/2010 Hydrobromide M.D. 40mg Tablets Metoprolol Succinate 1 tab qAM and 1/2 90tabs Unknown ER tab qPM 200mg Tablets ER 24HR Nortriptyline HCL 2 capsules po daily 90caps Unknown 10mg Capsules Enalapril Maleate 1 by mouth twice a Puma Nixon, day 10mg Tablets Pantoprazole Sodium 1 by mouth every 30tabs Brandi Cohen, day M.D. 40mg Tablets DR History Medications Clobetasol Propionate apply twice daily as 30gm Valente Christie, 2018 - needed to topical M.DCarlos 04/29/2019 0.05% Cream psoriatic plaques Influenza,Unspecified Unknown Injection Medications Administered in Office Medication SIG Qnty Indications Ordering Provider Date Depomedrol 40MG Genna Palacio M.D. 05/29/2019 Injection Depomedrol 40MG Genna Palacio M.D. 02/27/2019 Injection Depomedrol 40MG Genna Palacio M.D. 11/26/2018 Injection Synvisc Or Synvisc-One Genna Palacio M.D. 09/19/2018 Injection 1 MG Injection Depomedrol 40MG Genna Palacio M.D. 08/15/2018 Injection Inj, Regadenoson, 0.1 MG Kennedy Shi M.D., 10/13/2015 Injection FACC, FASNC Inj, Regadenoson, 0.1 MG Dread Rebolledo M.D. 10/13/2015 Injection Technetium TC 99M Kennedy Shi M.D., 10/13/2015 Tetrofosmin, Per Unit Dose FACC, FASNC Up To 40 Millicuries Injection Technetium TC 99M Dread Rebolledo M.D. 10/13/2015 Tetrofosmin, Per Unit Dose Up To 40 Millicuries Injection Depomedrol 80MG Genna Palacio M.D. 08/19/2015 Injection Technetium TC 99M Dread Rebolledo M.D. 06/01/2014 Tetrofosmin, Per Unit Dose Up To 40 Millicuries Injection Technetium TC 99M rBandi Cohen M.D. 06/01/2014 Tetrofosmin, Per Unit Dose Up To 40 Millicuries Injection Immunizations CPT Code Status Date Vaccine Lot # [id number] Given 06/10/2017 Influenza Virus Vaccine, Quadrivalent, Split, Preservative Free Vital Signs Date Vital Result Comment 06/05/2019 2:14pm Height 66 inches 5'6" Weight 208.00 lb with shoes Heart Rate 68 /min BP Systolic Sitting 130 mmHg Rue lg cuff BP Diastolic Sitting 80 mmHg Rue lg cuff BP Systolic Standing 122 mmHg Lue lg cuff BP Diastolic Standing 80 mmHg Lue lg cuff Respiratory Rate 16 /min BMI (Body Mass Index) 33.6 kg/m2 Ejection Fraction 55-60% date 03/11/19 ECHO 06/05/2019 8:55am Height 66 inches 5'6" Weight 206.00 lb Heart Rate 67 /min BP Systolic Sitting 116 mmHg BP Diastolic Sitting 72 mmHg Pain Level 6 O2 % BldC Oximetry 96 % BMI (Body Mass Index) 33.2 kg/m2 Results Test Date Facility Test Result H/L Range Note CBC No Diff 06/02/2019 [facility] White Blood 8.3 10^3/uL Normal 3.5-10.[address] [place] [address] [phone] Red Blood Count 3.70 10^6/uL Low 4.18-5.48 Hemoglobin 10.8 g/dL Low 14.0-18.0 Hematocrit 33 % Low 42-52 Mean Corpuscular Volume 90 fL Normal 80-94 Mean Corpuscular Hemoglobin 29 pg Normal 27-31 Mean Corpuscular HGB Conc 32 g/dL Normal 31-36 Red Cell Distribution Width 14 % Normal 10-15 Platelet Count 424 10^3/uL Normal 150-450 Mean Platelet Volume 8.1 fL Normal 7.4-10.4 Basic Metabolic 06/02/2019 [facility] Sodium 138 mmol/L Normal 135-[address] [place] [address] [phone] Potassium 4.6 mmol/L Normal 3.5-5.0 Chloride 101 mmol/L Normal 101-111 Co2 Carbon Dioxide 30 mmol/L Normal 22-32 Anion Gap 7 mmol/L Normal 2-11 Glucose 126 mg/dL High 70-100 Blood Urea Nitrogen 22 mg/dL Normal 6-24 Creatinine 1.28 mg/dL High 0.67-1.17 BUN/Creatinine Ratio 17.2 Normal 8-20 Calcium 9.4 mg/dL Normal 8.6-10.3 Egfr Non- 54.8 >60 Egfr 66.3 >60 1 CBC No Diff 05/25/2019 [facility] White Blood 6.6 10^3/uL Normal 3.5-10.[address] [place] [address] [phone] Red Blood Count 3.28 10^6/uL Low 4.18-5.48 Hemoglobin 9.9 g/dL Low 14.0-18.0 Hematocrit 30 % Low 42-52 Mean Corpuscular Volume 92 fL Normal 80-94 Mean Corpuscular Hemoglobin 30 pg Normal 27-31 Mean Corpuscular HGB Conc 33 g/dL Normal 31-36 Red Cell Distribution Width 14 % Normal 10-15 Platelet Count 327 10^3/uL Normal 150-450 Mean Platelet Volume 7.9 fL Normal 7.4-10.4 Basic Metabolic 05/25/2019 [facility] Sodium 137 mmol/L Normal 135-[address] [place] [address] [phone] Potassium 4.5 mmol/L Normal 3.5-5.0 Chloride 102 mmol/L Normal 101-111 Co2 Carbon Dioxide 30 mmol/L Normal 22-32 Anion Gap 5 mmol/L Normal 2-11 Glucose 140 mg/dL High 70-100 Blood Urea Nitrogen 23 mg/dL Normal 6-24 Creatinine 1.41 mg/dL High 0.67-1.17 BUN/Creatinine Ratio 16.3 Normal 8-20 Calcium 8.8 mg/dL Normal 8.6-10.3 Egfr Non- 49.0 >60 Egfr 59.3 >60 2 Laboratory test 02/06/2019 [facility] C Reactive 26.95 mg/L High <8.[address] [place] [address] [phone] Erythrocyte Sed Rate 36 mm/Hr High 0-19 CBC W/Auto 02/06/2019 [facility] White Blood 5.1 10^3/uL Normal 3.5-10.[address] [place] [address] [phone] Red Blood Count 4.09 10^6/uL Low 4.18-5.48 Hemoglobin 12.6 g/dL Low 14.0-18.0 Hematocrit 39 % Low 42-52 Mean Corpuscular Volume 96 fL High 80-94 Mean Corpuscular Hemoglobin 31 pg Normal 27-31 Mean Corpuscular HGB Conc 32 g/dL Normal 31-36 Red Cell Distribution Width 18 % High 10.5-15 Platelet Count 231 10^3/uL Normal 150-450 Mean Platelet Volume 9.2 fL Normal 7.4-10.4 Abs Neutrophils 3.3 10^3/uL Normal 1.5-7.7 Abs Lymphocytes 1.2 10^3/uL Normal 1.0-4.8 Abs Monocytes 0.1 10^3/uL Normal 0-0.8 Abs Eosinophils 0.5 10^3/uL Normal 0-0.6 Abs Basophils 0.0 10^3/uL Normal 0-0.2 Abs Nucleated RBC 0.0 10^3/uL Granulocyte % 64.7 % Lymphocyte % 22.8 % Monocyte % 2.4 % Eosinophil % 9.5 % Basophil % 0.6 % Nucleated Red Blood Cells % 0.0 CMP Panel 02/06/2019 [facility] Sodium 135 mmol/L Normal 135- [address] [place] [address] [phone] Potassium 4.6 mmol/L Normal 3.5-5.0 Chloride 103 mmol/L Normal 101-111 Co2 Carbon Dioxide 24 mmol/L Normal 22-32 Anion Gap 8 mmol/L Normal 2-11 Glucose 186 mg/dL High 70-100 Blood Urea Nitrogen 26 mg/dL High 6-24 Creatinine 2.02 mg/dL High 0.67-1.17 BUN/Creatinine Ratio 12.9 Normal 8-20 Calcium 9.2 mg/dL Normal 8.6-10.3 Total Protein 6.8 g/dL Normal 6.4-8.9 Albumin 3.8 g/dL Normal 3.2-5.2 Globulin 3.0 g/dL Normal 2-4 Albumin/Globulin Ratio 1.3 Normal 1-3 Total Bilirubin 0.50 mg/dL Normal 0.2-1.0 Alkaline Phosphatase 70 U/L Normal 34-104 Alt 24 U/L Normal 7-52 Ast 23 U/L Normal 13-39 Egfr Non- 32.4 >60 Egfr 39.2 >60 3 1 Because ethnic data is not always readily available, this report includes an eGFR for both -Americans and non- Americans. The National Kidney Disease Education Program (NKDEP) does not endorse the use of the MDRD equation for patients that are not between the ages of 18 and 70, are , have extremes of body size, muscle mass, or nutritional status, or are non- or non-. According to the National Kidney Foundation, irrespective of diagnosis, the stage of the disease is based on the level of kidney function: Stage Description GFR(mL/min/1.73 m(2)) 1 Kidney damage with normal or decreased GFR 90 2 Kidney damage with mild decrease in GFR 60-89 3 Moderate decrease in GFR 30-59 4 Severe decrease in GFR 15-29 5 Kidney failure <15 (or dialysis) 2 Because ethnic data is not always readily available, this report includes an eGFR for both -Americans and non- Americans. The National Kidney Disease Education Program (NKDEP) does not endorse the use of the MDRD equation for patients that are not between the ages of 18 and 70, are , have extremes of body size, muscle mass, or nutritional status, or are non- or non-. According to the National Kidney Foundation, irrespective of diagnosis, the stage of the disease is based on the level of kidney function: Stage Description GFR(mL/min/1.73 m(2)) 1 Kidney damage with normal or decreased GFR 90 2 Kidney damage with mild decrease in GFR 60-89 3 Moderate decrease in GFR 30-59 4 Severe decrease in GFR 15-29 5 Kidney failure <15 (or dialysis) 3 Because ethnic data is not always readily available, this report includes an eGFR for both -Americans and non- Americans. The National Kidney Disease Education Program (NKDEP) does not endorse the use of the MDRD equation for patients that are not between the ages of 18 and 70, are , have extremes of body size, muscle mass, or nutritional status, or are non- or non-. According to the National Kidney Foundation, irrespective of diagnosis, the stage of the disease is based on the level of kidney function: Stage Description GFR(mL/min/1.73 m(2)) 1 Kidney damage with normal or decreased GFR 90 2 Kidney damage with mild decrease in GFR 60-89 3 Moderate decrease in GFR 30-59 4 Severe decrease in GFR 15-29 5 Kidney failure <15 (or dialysis) Procedures Date Code Description Status 05/29/201958581 Inject/Drain Joint/Bursa Major W/O US Completed 03/27/2019 09650 EKG Tracing & Interpretation Completed 03/11/2019 02202 ECHO Transthoracic, Real-Time 2D With Doppler And Completed Color Flow 03/11/2019 35367 ECHO Transthoracic, Real-Time 2D With Doppler And Completed Color Flow 02/27/2019 73160 Inject/Drain Joint/Bursa Major W/O US Completed 02/14/2019 09193 EKG, Interpretation Only Completed 01/02/2019 17964 Nerve Conduction 03-04 Studies Completed 01/02/2019 22353 Needle Electromyography Each Extremity W/Related Completed Paraspinal Areas 01/14/2018 [id number] Diabetic Retinal Eye Exam Completed 08/26/2017 [id number] Bone Mineral Density Test Completed 11/06/2016 [id number] Diabetic Retinal Eye Exam Completed 08/07/2016 [id number] Diabetic Retinal Eye Exam Completed Medical Devices Description No Information Available Encounters Type Date Location Provider Dx Diagnosis Office Visit 06/05/2019 [facility] Donna Nicole, I10 Essential ( primary) 2:30p Of [facility] FIELD WORKER hypertension I25.10 Athscl heart disease of [place] coronary artery w/o ang pctrs I48.0 Paroxysmal atrial fibrillation I65.23 Occlusion and stenosis of bilateral carotid arteries I71.2 Thoracic aortic aneurysm, without rupture Office Visit 06/05/2019 [facility] Valente Emmanuel0.50 Arthropathic 9:00a [facility] Christie M.D. psoriasis, unspecified E79.0 Hyperuricemia w/o signs of inflam arthrit and tophaceous dis M62.81 Muscle weakness (generalized) Z79.899 Other fci (current) drug therapy Office Visit 04/29/2019 Rheumat[facility] Valente Emmanuel0.50 Arthropathic 3:20p [facility] Christie M.D. psoriasis, unspecified E79.0 Hyperuricemia w/o signs of inflam arthrit and tophaceous dis M62.81 Muscle weakness (generalized) L40.0 Psoriasis vulgaris Office Visit 03/27/2019 10:20a [facility] Brandi Cohen, I25.10 Athscl [facility] [place] [facility] M.D. 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 psoriasis, unspecified Z79.899 Other fci (current) drug therapy M10.9 Gout, unspecified M54.16 Radiculopathy, lumbar region Office Visit 02/18/2019 [facility] Darren Fontaine M54.16 Radiculopathy, 3:00p [facility] Jones M.D. lumbar region Office Visit 02/15/2019 [facility] Nadia N17.9 Acute kidney 10:20a aminta Yañez M.D. failure, Hospitalists unspecified N13.2 Hydronephrosis with renal and ureteral calculous obstruction Office Visit 02/14/2019 [facility] Nadiatoma Meza, N17.9 Acute kidney 10:20a aminta Yañez M.D. failure, Hospitalists unspecified N13.2 Hydronephrosis with renal and ureteral calculous obstruction I12.9 Hypertensive chronic kidney disease w stg 1-4/unsp chr kdny N18.9 Chronic kidney disease, unspecified I48.0 Paroxysmal atrial fibrillation E11.649 Type 2 diabetes mellitus with hypoglycemia without coma Office Visit 02/13/2019 [facility] Adama N13.0 Hydronephrosis with 10:20a Assaminta charles M.D. ureteropelvic Hospitalists junction obstruction N17.9 Acute kidney failure, unspecified I10 Essential (primary) hypertension E11.9 Type 2 diabetes mellitus without complications Office Visit 12/17/2018 [facility] Maximo Hawkins, M62.81 Muscle weakness 1:00p [facility] MINI (generalized) Office Visit 12/17/2018 Rheumatology Valente L40.50 Arthropathic 11:40a [facility] Christie M.D. 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 06/05/2019 I25.10 Atherosclerotic heart disease of Donna Nicole NP [place] coronary artery without angina pectoris 06/05/2019 E79.0 Hyperuricemia without signs of Valente Christie M.D. inflammatory arthritis and to 06/05/2019 I48.0 Paroxysmal atrial fibrillation Donna MINI Nicole 06/05/2019 M62.81 Muscle weakness (generalized) Valente Christie M.D. 06/05/2019 I65.23 Occlusion and stenosis of bilateral Donna Nicole NP carotid arteries 06/05/2019 Z79.899 Other fci (current) drug Valente Christie M.D. therapy 06/05/2019 I71.2 Thoracic aortic aneurysm, without Donna Nicole, FIELD WORKER rupture 05/29/2019 M25.562 Pain in left knee Genna Palacio M.D. 05/29/2019 M25.462 Effusion, left knee Genna Palacio M.D. 05/29/2019 M17.12 Unilateral primary osteoarthritis, Genna Palacio M.D. 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 04/29/2019 L40.50 Arthropathic psoriasis, unspecified Valente Christie M.D. 04/29/2019 E79.0 Hyperuricemia without signs of Valente Christie M.D. inflammatory arthritis and to 04/29/2019 M62.81 Muscle weakness (generalized) Valente Christie M.D. 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 03/27/2019 I25.10 Atherosclerotic heart disease of Brandi Cohen M.D. [place] coronary artery with 03/27/2019 I48.0 Paroxysmal atrial fibrillation Brandi Cohen M.D. 03/27/2019 I65.23 Occlusion and stenosis of bilateral Brandi Cohen M.D. carotid arteries 03/27/2019 E78.2 Mixed hyperlipidemia Brandi Cohen M.D. 03/27/2019 N20.0 Calculus of kidney Brandi Cohen M.D. 03/27/2019 Z01.810 Encounter for preprocedural Brandi Cohen M.D. cardiovascular examination 03/27/2019 I71.2 Thoracic aortic aneurysm, without Brandi Cohen M.D. rupture 03/27/2019 Z79.01 nursing home (current) use of Brandi Cohen M.D. anticoagulants 03/11/2019 I71.2 Thoracic aortic aneurysm, without Brandi Cohen M.D. rupture 03/11/2019 I71.2 Thoracic aortic aneurysm, without Ica ECHO Schedule rupture 02/27/2019 M25.562 Pain in left knee Genna Palacio M.D. 02/27/2019 M25.462 Effusion, left knee Genna Palacio M.D. 02/27/2019 M17.12 Unilateral primary osteoarthritis, Genna Palacio M.D. left knee 02/25/2019 L40.50 Arthropathic psoriasis, unspecified Valente Christie M.D. 02/25/2019 Z79.899 Other fci (current) drug Valente Christie M.D. therapy 02/25/2019 M10.9 Gout, unspecified Valente Christie M.D. 02/25/2019 M54.16 Radiculopathy, lumbar region Valente Christie M.D. 02/18/2019 M54.16 Radiculopathy, lumbar region Darren Jones M.D. 02/15/2019 N17.9 Acute kidney failure, unspecified Nadia Meza M.D. 02/15/2019 N13.2 Hydronephrosis with renal and Nadia Meza M.D. ureteral calculous obstruction 02/14/2019 R94.31 Abnormal electrocardiogram [ECG] Kiel Mack MD, FACC, [EKG] FSCAI 02/14/2019 N17.9 Acute kidney failure, unspecified Nadia Meza M.D. 02/14/2019 N13.2 Hydronephrosis with renal and Nadia Meza M.D. ureteral calculous obstruction 02/14/2019 I12.9 Hypertensive chronic kidney disease w Nadia Meza M.D. stg 1-4/unsp chr kdny 02/14/2019 N18.9 Chronic kidney disease, unspecified Nadia Meza M.D. 02/14/2019 I48.0 Paroxysmal atrial fibrillation Nadia Meza M.D. 02/14/2019 E11.649 Type 2 diabetes mellitus with Nadia Meza M.D. hypoglycemia without coma 02/13/2019 N13.0 Hydronephrosis with ureteropelvic Adama Borden M.D. junction obstruction 02/13/2019 N17.9 Acute kidney failure, unspecified Adama Borden M.D. 02/13/2019 I10 Essential (primary) hypertension Adama Borden M.D. 02/13/2019 E11.9 Type 2 diabetes mellitus without Adama Boredn M.D. complications 01/02/2019 M54.16 Radiculopathy, lumbar region Darren Jones M.D. 12/17/2018 M62.81 Muscle weakness (generalized) Maximo Hawkins, MINI 12/17/2018 L40.50 Arthropathic psoriasis, unspecified Valente Christie M.D. 12/17/2018 Z79.899 Other fci (current) drug Valente Christie M.D. therapy 12/17/2018 M10.9 Gout, unspecified Valente Christie M.D. 12/17/2018 N18.9 Chronic kidney disease, unspecified Valente Christie M.D. Plan of Treatment Future Appointment(s):07/24/2019 9:45 am - Darren Jones M.D. at [facility]/05/2019 9:40 am - Valente Christie M.D. at [facility]06/05/2019 - Donna Nicole NPI10 Essential (primary ) [id number] Atherosclerotic heart disease of [place] coronary artery without angina pectorisFollow up:follow up in two weeks to discuss going back on antiplatelet therapy( Aspirin) follow up with Dr. Cohen in 4-5 months.I48.0 Paroxysmal atrial [id number] Occlusion and stenosis of bilateral carotid arteriesNew Xrays:VL Carotid Bilateral, Scheduled: I71.2 Thoracic aortic aneurysm, without rupture Functional Status Description No Information Available Mental Status Description No Information Available Referrals Description No Information Available
--- OUTSIDE RECORDS SUMMARY | 2019-06-19 16:51 | XMS REPORT | Continuity of Care Document ---
:1945 External Reference #:[id number] Author Name Donna Nicole NP (transmitted by agent of provider Kinga Kidd) Address [address] [place] [id number] Care Team Providers Name Role Phone Puma Nixon MD - Internal Medicine Care Team Information Lamp Shades Supervisor [phone] Lavinia Gee MD - Hand Surgery Care Team Information Lamp Shades Supervisor Problems Active Problems Provider Date Postoperative Wound Closure Encounter Krishna Miles M.D., [facility], Onset: 2013 [facility] Coronary arteriosclerosis Brandi Cohen M.D. Onset: [...] and pipe as well Smoking Status Reviewed: 06/19/19 Former Cigarette Smoker Formerly smoked cigar and [...] Otezla take 1 tablet by 90tabs Z79.899 Valente Christie, 06/05/2019 30mg Tablets mouth twice a [...] take one 90caps Valente Christie, 09/13/2017 capsule/tablet Jabari.Chencho 1000Unit Capsules daily by mouth Eliquis 1 by mouth twice a 180tabs Donna Nicole, 09/04/2017 5mg Tablets day [facility] Urea 20 Intensive apply twice daily 85gm [...] Valente Christie, 2018 - needed to topical M.Chencho 04/29/2019 0.05% Cream psoriatic plaques Influenza,Unspecified Unknown [...] To 40 Millicuries Injection Technetium TC 99M Brandi Cohen M.D. 06/01/2014 Tetrofosmin, Per Unit Dose Up To 40 Millicuries Injection Immunizations CPT Code Status Date Vaccine Lot # [id number] Given 06/10/2017 Influenza Virus Vaccine, Quadrivalent, Split, Preservative Free Vital Signs Date Vital Result Comment 06/19/2019 2:30pm Height 66 inches 5'6" Heart Rate 62 /min BP Systolic Sitting 122 mmHg lue reg cuff BP Diastolic Sitting 80 mmHg lue reg cuff Respiratory Rate 14 /min Ejection Fraction 55-60% 06/05/2019 2:14pm Height 66 inches 5'6" Weight 208.00 lb with shoes Heart Rate 68 /min BP Systolic Sitting 130 mmHg Rue lg cuff BP Diastolic Sitting 80 mmHg Rue lg cuff BP Systolic Standing 122 mmHg Lue lg cuff BP Diastolic Standing 80 mmHg Lue lg cuff Respiratory Rate 16 /min BMI (Body Mass Index) 33.6 kg/m2 Ejection Fraction 55-60% date 03/11/19 ECHO Results Test Date Facility Test Result H/L Range Note Order 06/19/2019 [facility] EKG <pending> CBC No Diff 06/02/2019 [facility] White Blood 8.3 10^3/uL Normal 3.5-10.[address] [place] [address] [phone] Red Blood Count 3.70 10^6/uL Low 4.18-5.48 Hemoglobin 10.8 g/dL Low 14.0-18.0 Hematocrit 33 % Low 42-52 Mean Corpuscular Volume 90 fL Normal 80-94 Mean Corpuscular Hemoglobin 29 pg Normal 27-31 Mean Corpuscular HGB Conc 32 g/dL Normal 31-36 Red Cell Distribution Width 14 % Normal 10-15 Platelet Count 424 10^3/uL Normal 150-450 Mean Platelet Volume 8.1 fL Normal 7.4-10.4 Basic Metabolic 06/02/2019 [facility] Sodium 138 mmol/L Normal 135-[address] [place] [address] [phone] Potassium 4.6 mmol/L Normal 3.5-5.0 Chloride 101 mmol/L Normal 101-111 Co2 Carbon Dioxide 30 mmol/L Normal 22-32 Anion Gap 7 mmol/L Normal 2-11 Glucose 126 mg/dL High 70-100 Blood Urea Nitrogen 22 mg/dL Normal 6-24 Creatinine 1.28 mg/dL High 0.67-1.17 BUN/Creatinine Ratio 17.2 Normal 8-20 Calcium 9.4 mg/dL Normal 8.6-10.3 Egfr Non- 54.8 >60 Egfr 66.3 >60 1 CBC No Diff 05/25/2019 [facility] White Blood 6.6 10^3/uL Normal 3.5-10.[address] [place] [address] [phone] Red Blood Count 3.28 10^6/uL Low 4.18-5.48 Hemoglobin 9.9 g/dL Low 14.0-18.0 Hematocrit 30 % Low 42-52 Mean Corpuscular Volume 92 fL Normal 80-94 Mean Corpuscular Hemoglobin 30 pg Normal 27-31 Mean Corpuscular HGB Conc 33 g/dL Normal 31-36 Red Cell Distribution Width 14 % Normal 10-15 Platelet Count 327 10^3/uL Normal 150-450 Mean Platelet Volume 7.9 fL Normal 7.4-10.4 Basic Metabolic 05/25/2019 [facility] Sodium 137 mmol/L Normal 135-[address] [place] [address] [phone] Potassium 4.5 mmol/L Normal 3.5-5.0 Chloride 102 mmol/L Normal 101-111 Co2 Carbon Dioxide 30 mmol/L Normal 22-32 Anion Gap 5 mmol/L Normal 2-11 Glucose 140 mg/dL High 70-100 Blood Urea Nitrogen 23 mg/dL Normal 6-24 Creatinine 1.41 mg/dL High 0.67-1.17 BUN/Creatinine Ratio 16.3 Normal 8-20 Calcium 8.8 mg/dL Normal 8.6-10.3 Egfr Non- 49.0 >60 Egfr 59.3 >60 2 Laboratory test 02/06/2019 [facility] C Reactive 26.95 mg/L High <8.[address] [place] [address] [phone] Erythrocyte Sed Rate 36 mm/Hr High 0-19 CBC W/Auto 02/06/2019 [facility] White Blood 5.1 10^3/uL Normal 3.5-10.[address] [place] [address] [phone] Red Blood Count 4.09 10^6/uL Low 4.18-5.48 [...] Blood Cells % 0.0 CMP Panel 02/06/2019 [facility] Sodium 135 mmol/L Normal 135- [address] [place] [address] [phone] Potassium 4.6 mmol/L Normal 3.5-5.0 Chloride 103 [...] (or dialysis) Procedures Date Code Description Status 06/19/2019 15929 EKG Tracing & Interpretation Completed 05/29/2019 22242 Inject/Drain Joint/Bursa Major W/O US Completed 03/27/2019 56079 EKG Tracing & Interpretation Completed 03/11/2019 96931 ECHO Transthoracic, Real-Time 2D With Doppler And Completed Color Flow 03/11/2019 58481 ECHO Transthoracic, Real-Time 2D With Doppler And Completed Color Flow 02/27/2019 04115 Inject/Drain Joint/Bursa Major W/O US Completed 02/14/2019 03896 EKG, Interpretation Only Completed 01/02/2019 08614 Nerve Conduction 03-04 Studies Completed 01/02/2019 94156 Needle Electromyography Each Extremity W/Related Completed Paraspinal Areas 01/14/2018 481231422 Diabetic Retinal Eye Exam Completed 08/26/2017 335552305 Bone Mineral Density Test Completed 11/06/2016 278697025 Diabetic Retinal Eye Exam Completed 08/07/2016 692974607 Diabetic Retinal Eye Exam Completed Medical Devices Description No Information Available Encounters Type Date Location Provider Dx Diagnosis Office Visit 06/05/2019 [facility] Donna Nicole, I10 Essential ( primary) 2:30p Of [facility] hypertension I25.10 Athscl heart disease of [place] coronary artery w/o ang pctrs I48.0 Paroxysmal atrial fibrillation I65.23 Occlusion and stenosis of bilateral carotid arteries I71.2 Thoracic aortic aneurysm, without rupture Office Visit 06/05/2019 [facility] Valente Emmanuel0.[facility] 9:00a [facility] Christie M.D. psoriasis, unspecified E79.0 Hyperuricemia w/o signs of inflam arthrit and tophaceous dis M62.81 Muscle weakness (generalized) Z79.899 Other intermediate frame tender (current) drug therapy Office Visit 04/29/2019 [facility] Valente Emmanuel0.[facility] 3:20p [facility] Christie M.D. psoriasis, unspecified E79.0 Hyperuricemia w/o signs of inflam arthrit and tophaceous dis M62.81 Muscle weakness (generalized) L40.0 Psoriasis vulgaris Office Visit 03/27/2019 10:20a [facility] Brandi Cohen, I25.10 Athscl heart Of [facility].DCarlos disease of [place] coronary artery w/o ang pctrs I48.0 Paroxysmal atrial fibrillation I65.23 Occlusion and stenosis of bilateral carotid arteries E78.2 Mixed hyperlipidemia N20.0 Calculus of kidney Z01.810 Encounter for preprocedural cardiovascular examination I71.2 Thoracic aortic aneurysm, without rupture Z79.01 watermaster (current) use of anticoagulants Office Visit 02/27/2019 9:00a [facility] Genna Palacio, M25.562 [facility] M25.462 Effusion, left knee M17.12 Unilateral primary osteoarthritis, left knee Office Visit 02/25/2019 [facility] Valente Emmanuel0.[facility] 11:40a [facility] Shahnaz, M.D. psoriasis, unspecified Z79.899 Other intermediate frame tender (current) drug therapy M10.9 Gout, unspecified M54.16 Radiculopathy, lumbar region Office Visit 02/18/2019 [facility] Fontaine M54.16 Radiculopathy, 3:00p [facility] Jones M.D. lumbar region Office Visit 02/15/2019 [facility] Nadia N17.9 Acute kidney 10:20a aminta Yañez M.D. failure, Hospitalists unspecified N13.2 Hydronephrosis with renal and ureteral calculous obstruction Office Visit 02/14/2019 [facility] Nadia Meza, N17.9 Acute kidney 10:20a aminta Yañez M.D. failure, Hospitalists unspecified N13.2 Hydronephrosis with renal and ureteral calculous obstruction I12.9 Hypertensive chronic kidney disease w stg 1-4/unsp chr kdny N18.9 Chronic kidney disease, unspecified I48.0 Paroxysmal atrial fibrillation E11.649 Type 2 diabetes mellitus with hypoglycemia without coma Office Visit 02/13/2019 [facility] Adama N13.0 Hydronephrosis with 10:20a aminta Yañez M.D. ureteropelvic Hospitalists junction obstruction N17.9 Acute kidney failure, unspecified I10 Essential (primary) hypertension E11.9 Type 2 diabetes mellitus without complications Assessments Date Code Description Provider 06/19/2019 I10 Essential (primary) hypertension Donna Nicole NP 06/19/2019 I48.0 Paroxysmal atrial fibrillation Donna Nicole NP 06/19/2019 I25.10 Atherosclerotic heart disease of Donna Nicole NP [place] coronary artery without angina pectoris 06/19/2019 Z79.899 Other intermediate frame tender (current) drug Donna Nicole NP therapy 06/05/2019 I10 Essential (primary) hypertension Donna Nicole NP 06/05/2019 L40.50 Arthropathic psoriasis, unspecified Valente Christie M.D. 06/05/2019 I25.10 Atherosclerotic heart disease of Donna Nicole NP [place] coronary artery without angina pectoris 06/05/2019 E79.0 Hyperuricemia without signs of Valente Christie M.D. inflammatory arthritis and to 06/05/2019 I48.0 Paroxysmal atrial fibrillation Donna Nicole, [facility] 06/05/2019 M62.81 Muscle weakness (generalized) Valente Christie M.D. 06/05/2019 I65.23 Occlusion and stenosis of bilateral Donna Nicole NP carotid arteries 06/05/2019 Z79.899 Other intermediate frame tender (current) drug Valente Christie M.D. therapy 06/05/2019 I71.2 Thoracic aortic aneurysm, without Donna Nicole, [facility] rupture 05/29/2019 M25.562 Pain in left knee [...] Atherosclerotic heart disease of Brandi Cohen M.D. [place] coronary artery with 03/27/2019 I48.0 Paroxysmal atrial fibrillation Brandi Choen M.D. 03/27/2019 I65.23 Occlusion and stenosis of bilateral Brandi Cohen M.D. carotid arteries 03/27/2019 E78.2 Mixed hyperlipidemia Brandi Cohen M.D. 03/27/2019 N20.0 Calculus of kidney Brandi Cohen M.D. 03/27/2019 Z01.810 Encounter for preprocedural Brandi Cohen M.D. cardiovascular examination 03/27/2019 I71.2 Thoracic aortic aneurysm, without Brandi Cohen M.D. rupture 03/27/2019 Z79.01 assisted (current) use of Brandi Cohen M.D. anticoagulants [...] unspecified Valente Christie M.D. 02/25/2019 Z79.899 Other intermediate frame tender (current) drug Valente Christie M.D. therapy 02/25/2019 [...] 02/14/2019 N13.2 Hydronephrosis with renal and Nadia eMza M.D. ureteral calculous obstruction 02/14/2019 I12.9 Hypertensive [...] E11.9 Type 2 diabetes mellitus without Adama Borden M.D. complications 01/02/2019 M54.16 Radiculopathy, lumbar region Darren Jones M.D. Plan of Treatment Future Appointment(s):07/10/2019 2:30 pm - Donna Nicole NP at [facility]07/24/2019 9:45 am - Darren Jones M.D. at [facility]08/05/2019 9:40 am - Valente Christie M.D. at [facility]06/19/2019 - Donna Nicole NPI10 Essential (primary ) lnwcsxfhxbdeF96.0 Paroxysmal atrial azfsbwgfghtbL86.10 Atherosclerotic heart disease of [place] coronary artery without angina pectorisFollow up:follow up in in 3-4 weeks with (Donna Nicole WARNING ANALYST-BC)Z79.899 Other penitentiary (current) drug therapy Functional Status Description No Information Available Mental Status Description No Information Available Referrals Description No Information Available
--- OUTSIDE RECORDS SUMMARY | 2019-06-19 16:52 | XMS REPORT | Continuity of Care Document ---
:1945 External Reference #:[id number] Author Name Valente Bonner M.D. Address [address] [place] [address] Care Team Providers Name Role Phone Puma Nixon M.D. - Professor Of Anthropology Care Team Information Hypo Splasher Brandi Cohen M.D. - Cardiovascular Care Team Information Hypo Splasher [phone] Disease Valente Christie MD - Rheumatology Care Team Information Hypo Splasher [phone] Problems Active Problems Provider Date Type 2 diabetes mellitus Onset: Kidney stone Onset: Gastroesophageal reflux disease Onset: Essential hypertension Onset: Atrial fibrillation Onset: Arthritis Onset: Mild depression Onset: Vitreous degeneration Valente Bonner M.D. Onset: 08/02/2015 Presence of intraocular lens Valente Bonner M.D. 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 Onset: 07/16/2017 Psoriatic arthritis Onset: Other secondary cataract, bilateral aVlente Bonner M.D. Onset: 01/14/2018 Social History Type Date Description Comments Sex Unknown ETOH Use Occasionally consumes alcohol Tobacco Use Start: Unknown Patient has never smoked Recreational Drug Use Denies Drug Use Smoking Status Reviewed: 06/02/19 Patient has never smoked Allergies, Adverse Reactions, Alerts Active Allergies Reaction Severity Comments Date Penicillin 08/02/2015 Sulfa Antibiotics 08/02/2015 Jell - On EKG Pads rash 07/16/2017 Medications Active Medications SIG Qnty Indications Ordering Provider Date Potassium Chloride Wen Brandi Cohen ER M.DCarlos 10Meq Tablets ER Metoprolol Succinate ER Puma Nixon M.DCarlos 200mg Tablets ER 24HR Hydrocodone-Acetaminoph Puma Nixon en M.DCarlos 10-325mg Tablets Clopidogrel Bisulfate Krishna Miles M.D. 75mg Tablets Nifedipine ER Brandi Cohen 30mg Tablets M.D. ER 24HR Pantoprazole Sodium Krishna Miles M.D. 40mg Tablets DR Fowlertriptyline HCL Puma Nixon 10mg M.D. Capsules Atorvastatin Calcium Puma Nixon 10mg M.D. Tablets Glipizide Puma Nixon 5mg Tablets M.D. Citalopram Hydrobromide Puma Nixon M.DCarlos 40mg Tablets Remicade Infusion E4iungp Unknown 1000mg Solution Rec Eliquis Brandi Cohen 5mg Tablets M.D. Vitamin C 1 by mouth every Unknown 500mg Capsules day Immunizations Description No Information Available Vital Signs Date Vital Result Comment 12/29/2018 3:40pm BP Systolic 148 mmHg BP Diastolic 78 mmHg Heart Rate 68 /min Respiratory Rate 16 /min Results Description No Information Available Procedures Date Code Description Status 12/29/2018 04983 Remove Secondary Cataract, Laser (Yag) Completed 12/08/2018 83851 Patient No Show For Appt Completed Medical Devices Description No Information Available Encounters Description No Information Available Assessments Date Code Description Provider 06/02/2019 E11.3592 Type 2 diabetes mellitus with proliferative Valente Bonner M.D. diabetic retinop 06/02/2019 E11.3291 Type 2 diabetes mellitus with mild Valente Bonner M.D. nonproliferative diabetic 06/02/2019 Z96.1 Presence of intraocular lens Valente Bonner M.D. 12/29/2018 H26.491 Other secondary cataract, right eye Valente Bonner M.D. 12/29/2018 Z96.1 Presence of intraocular lens Valente Bonner M.D. 12/29/2018 E11.3592 Type 2 diabetes mellitus with proliferative Valente Bonner M.D. diabetic retinop Plan of Treatment 06/02/2019 - Valente Bonner M.D.E11.3592 Type 2 diabetes mellitus with proliferative diabetic retinopComments:Smoking can increase the risk of developing or worsening any eye related disease, as well as affect your overall health. If you are a smoker, we strongly recommend that you quit.If you are not a smoker, we strongly recommend that you do not start. I can detect diabetic changes in your eyes. Proper control of your diabetes is important for the health of your eyes. It is important that you keep all of your follow up appointments. Dr. Bonner has sent a report to your primary care doctor, letting themknow the current status of your retina.Follow up:6 Month Follow Up OCT MAC You can expect to have your eyes dilated at your next visit. If Dr. Salinasoorders any additional testing, it may require extra time. We recommend that you bring sunglasses, asdilation drops often make you light sensitive until they wear off. We always recommend you bring someone to drive you home if you are uncomfortable driving with your eyes dilated. If you have any questions before your next visit, feel free to call our office at .E11.1593 Type 2 diabetes mellitus with mild nonproliferative diabeticComments:I can detect diabetic changes in your right eye. Proper control of your diabetes is important for the health of your right eye. It is important that you keep all of your follow-up appointments. Dr. Bonner has sent a report to your primary care doctor, letting them know the current status of your retina.Z96.1 Presence of intraocular lensComments:The artificial lens implants in both eyes appear to be stable at this time. Functional Status Description No Information Available Mental Status Description No Information Available Referrals Description No Information Available
--- OUTSIDE RECORDS SUMMARY | 2019-06-19 16:52 | XMS REPORT | Summary of Care ---
:1945 Author Organization 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 Penicillins 10/08/2007 Sulfur 03/31/2002 documented as of this encounter (statuses as of 05/23/2019) Medications Medication Sig Dispensed Refills Start Date End Date Status potassium chloride Take 20 mEq by 0 Active (K-TAB) 10 MEQ Oral mouth DAILY. Tab CR NIFEdipine Take 30 mg by 0 Active (PROCARDIA XL) 30 mouth DAILY. MG (OSM) Oral TABLET SR [address] 0.4 mg 0 Active (NITROSTAT) 0.4 MG under tongue Sublingual SL Tab EVERY FIVE MINUTES NEEDED for chest pain. HYDROcodone-acetami Take 1 Tab by 42 Tab 0 04/01/2017 Active nophen (NORCO) mouth TWO 5-325 MG Oral Tab TIMES DAILY NEEDED (Degnerative joint disease of hip). Max Daily Amount: 2 Tabs. apixaban (ELIQUIS) Take 5 mg by 0 Active 5 MG Oral Tab mouth TWICE DAILY. clobetasol (CORMAX) TWO TIMES 1 04/29/2018 Active 0.05 % Apply DAILY externally Ointment NEEDED. gabapentin 300 mg TWICE 3 05/20/2018 Active (NEURONTIN) 300 MG DAILY. And january Oral Cap take one at hs prn enalapril (VASOTEC) Take 1 Tab by 180 Tab 3 07/14/2018 Active 10 MG Oral mouth TWICE TabIndications: DAILY. Essential hypertension pantoprazole Take 1 Tab by 90 Tab 3 01/30/2019 Active (PROTONIX) 40 MG mouth DAILY. Oral Tab EC Metoprolol TAKE 1 TABLET 135 Tab 3 03/03/2019 Active Succinate 200 MG BY MOUTH EVERY Oral TABLET SR 24 MORNING AND HR TAKE 1/2 TABLET BY MOUTH EVERY EVENING atorvastatin TAKE 1 TABLET 90 Tab 3 03/03/2019 Active (LIPITOR) 10 MG BY MOUTH EVERY Oral Tab DAY nortriptyline Take 2 Caps by 180 Cap 3 03/26/2019 Active (PAMELOR) 10 MG mouth EVERY Oral Cap BEDTIME. citalopram (CELEXA) TAKE 1 TABLET 90 Tab 1 04/24/2019 Active 40 MG Oral Tab BY MOUTH EVERY DAY glipiZIDE TAKE 1 TABLET 135 Tab 3 05/14/2019 Active (GLUCOTROL) 5 MG BY MOUTH EVERY Oral Tab MORNING AND TAKE 1/2 TABLET BY MOUTH EVERY EVENING DIRECTED metFORMIN HCL 1000 Take 1 Tab by 180 Tab 3 10/28/2018 05/23/2019 Discontinued MG Oral mouth TWICE TabIndications: DAILY. Type 2 diabetes mellitus with diabetic polyneuropathy, without long-term current use of insulin (HCC) documented as of this encounter (statuses as of 05/23/2019) Active Problems Problem Noted Date Acute kidney injury 03/26/2019 Vertebral compression fracture 02/11/2018 Coronary artery disease 07/20/2014 Overview: Stenting of right coronary artery, left anterior descending, mid left circumflex and distal left circumflex, June 2014 at [facility] with Dr. Mlies Other ossification of muscle, other site 02/22/2014 [...] maintenance treatment in weight loss Referral to heart surgeon recommended. Case is managed by Lisbet NIXON [...] as of this encounter (statuses as of 05/23/2019) Resolved Problems Problem Noted Date Resolved Date BMI 39.0-39.9,adult 03/06/2011 03/11/2012 Obesity 03/13/2007 05/26/2012 documented as of this encounter (statuses as of 05/23/2019) Immunizations Name Administration Dates Next Due H1N1 [...] Sign Reading Time Taken Comments Blood Pressure 110/78 05/23/2019 9:53 AM EDT Pulse 72 05/23/2019 9:53 AM EDT Temperature - - Respiratory Rate - - Oxygen Saturation - - Inhaled Oxygen Concentration - - Weight 93.4 kg (206 lb) 05/23/2019 9:53 AM EDT Height 170.2 cm (5' 7") 05/23/2019 9:53 AM EDT Body Mass Index 32.26 05/23/2019 9:53 AM EDT documented in this encounter Patient Instructions Patient InstructionsOumou Shah MD - 05/23/2019 9:40 AM EDTPlan Take blood pressure 3 x week - Bring in the cuff - Follow up appointment Tiffani -Electronically signed by Oumou Shah MD at 05/23 10:02 AM EDT documented in this encounter Progress Notes Oumou Shah MD - 05/23/2019 9:40 AM EDT NAME:Leon Gregory 1945: 1945 ENC Date: 05/23/2019 CC: Chief Complaint Patient presents with Blood Pressure Leon Gregory is a 73-y.o. male complex medical patient - Under care for lithotripsy Noted to have low blood pressure in [place] - 90/60 after procedure - - No feeling of faint - Blood pressure at home have been 150/80- 168/87 - Current Outpatient Medications Medication Sig apixaban (ELIQUIS) [...] No current facility-administered medications for this visit. Patient Active Problem List Diagnosis Date Noted Acute kidney injury (HCC) 03/26/2019 Vertebral compression fracture ([facility]) 02/11/2018 Coronary artery disease 07/20/2014 Stenting of right coronary artery, left anterior descending, mid left circumflex and distal left circumflex, June 2014 at [facility] with Dr. Miles Other ossification of muscle, other site 02/22/2014 Right trochanteric region Carotid occlusion, right 08/04/2013 IRINA (obstructive sleep apnea) can't tolerate CPAP BMI 40.0-44.9, adult ([facility]) 01/18/2012 This patient's BMI has been calculated and is above average, and BMI management plan is completed. General patient education discussion including: obesity-related excess mortality, weight loss linkto reduction of risk factors for cardiac and other diseases, importance of long-term maintenance treatment in weight loss Referral to heart surgeon recommended. Case is managed by Lisbet NIXON MD . Atrial fibrillation ([facility]) CTS (carpal tunnel syndrome) bilateral, R>L. EMG 04/12/11 Carpal tunnel syndrome 04/19/2011 Bilateral mild to moderate. R>L. 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 No bruising/ bleeding. No neurological complaints . No insomnia.+ . Social History Tobacco Use Smoking status: Former Smoker Years: 5.00 Types: Cigarettes Smokeless tobacco: Never Used Tobacco comment: quit 1984 Substance Use Topics Alcohol use: Yes Alcohol/week: 0.0 standard drinks Comment: socially Drug use: No OBJECTIVE: BP 110/78 | Pulse 72 | Ht 5' 7" (1.702 m) | Wt 206 lb (93.4 kg) | BMI 32.26 kg/m . 108/ 78 on repeat Heent neg Neck no JVD, thyromegaly or bruit Lungs Clear CV rrr 1-2/6 systolic Ext trace edema; Neuro: intellect intact ; motor including gait unremarkable A/P ICD-9-CM ICD-10-CM 1. Hypotension, unspecified hypotension type 458.9 I95.9 There are no Patient Instructions on file for this visit. AUTHOR: Oumou Shah MD 09:59 05/23/2019 documented in this encounter Plan of Treatment Date Type Specialty Care Team Description 07/02/2019 Office Visit Internal Medicine Puma Nixon MD [address] [place] [address] [phone] Health Maintenance Due Date Last Done Comments [...] SCREENING 03/26/2020 03/26/2019, 03/26/2019 Diabetic Eye Exam 11/07/2020 11/07/2018, 11/07/2018, 01/14/2018, Additional history exists AAA SCREENING/SURVEILLANCE Completed 04/27/2013 [...] Blood Pressure Blood Pressure Type 2 diabetes 110/78 No Tiffani, < 140/90 mellitus with (05/23/2019 MD Puma diabetic 9:53 AM EDT) polyneuropathy, without long-term current use of [...] Educational Resources. record my blood pressure results. [employer]les[facility] is safe and secure way for you [...] Educational Resources: National Heart, Lung, & Blood Combes http://nhlbi.nih.gov/hbp/index.html The DASH Diet Eating Plan http://www.nhlbi.nih.gov/health/health-topics/ topics/dash/ Academy of Nutrition & DIetetics http://eatright.org National Smoking Cessation Site http://smokefree.gov Blood Pressure < Blood Pressure 110/78 (05/23/2019 9:53 No Puma Nixon MD 140/90 AM EDT) Note: This is an individualized treatment [...] 7.0 07/01/2014 1600 GLYCO 8.5 08/04/2013 1347 [id number] 6.6 01/13/2014 The patient is:at goal . [...] my blood sugar results (including dextrose sticks). [facility] is safe and secure way for [...] provider and work towards quitting. Education Resources: [place] Diabetic Association Site http://diabetes.org Academy of Nutrition & Dietetics Site http://eatright.org National Smoking Cessation Site http://smokefree.gov Glycohemoglobin A1c < 7.0 Diabetes 5.8 (02/06/2019 11:41 AM Puma Luna MD EDT) Note: This is an individualized treatment (diabetes control, HgbA1C) goal for Leon Gregory: Displayed above is your progress towards your HgbA1C goal. Your goal is shown above (on the left); your most recent HgbA1C is shown on the right. Note that lower numbers are better. Weight loss vs. 18 mo Lifestyle 22 (05/23/2019 9:53 AM EDT) Puma Luna MD max (lbs) >= 10 Note: This [...] is an individualized lifestyle goal for Leon Quinteroser: Please maintain a regular sleep schedule. This may help with some symptoms of depression. Keep immunizations current Lifestyle Puma Luna MD Note: This is an individualized lifestyle goal for Leon Quinteroser: Please be sure to keep up-to-date on [...] filedocumented in this encounter Visit Diagnoses Diagnosis Hypotension, unspecified hypotension type - Primary documented in this encounter Insurance Payer Benefit Plan / Subscriber ID Effective Dates Phone Address Type Group MVP GOLD MEDICARE MVP GOLD MEDICARE xxxxxxxxxxx 2010-Present [facility] AD[facility] Guarantor Name Account Type Relation to Date of Phone Billing Patient Address Leon Gregory Personal/Family 1945 [address] [phone] [place], [place] (Work) [id number] documented as of this encounter
--- OUTSIDE RECORDS SUMMARY | 2019-06-19 16:52 | XMS REPORT | Continuity of Care Document ---
:1945 External Reference #:[id number] Author Name Valente Christie M.D. (transmitted by agent of provider Roslyn Walsh) Address [address] [place] [address] Care Team Providers Name Role Phone Puma Nixon MD - Internal Medicine Care Team Information Gold Blower [phone] Lavinia Gee MD - Hand Surgery Care Team Information Gold Blower [phone] Problems Active Problems Provider Date Postoperative Wound Closure Encounter Krishna Miles M.D., [facility], Onset: 2013 [facility] Coronary arteriosclerosis Brandi Cohen M.D. [...] Palacio M.D. Onset: 08/15/2018 Paroxysmal atrial fibrillation Brnadi Cohen M.D. Onset: 03/27/2019 Social History Type Date Description Comments Sex Unknown Tobacco Use Start: Unknown End: Former Cigarette Smoker Formerly smoked Unknown cigar and pipe as well Smoking Status Reviewed: 04/29/19 Former Cigarette Smoker Formerly smoked cigar and [...] Medications SIG Qnty Indications Ordering Date Provider Triamcinolone apply thin film 453.600gm Valente Christie, 04/29/2019 Acetonide twice daily to M.D. 0.1% Cream psoriasis Simponi Aria Valente Christie, 12/17/2018 50mg/4ML M.D. Solution Folinic-Plus Take one 14tabs Valente Christie, 09/19/2018 4-50-2mg capsule/tablet M.D. Tablets daily by mouth Folic Acid Take 1 Tablet By 30tabs Valente Christie, 09/12/2018 1mg Mouth Every Day M.D. Tablets BD 1ML for use weekly with 90units Valente Christie, 04/29/2018 Syringe/Needle/Slip sc methotrexate M.D. Tip/Subq/26G X 5/8" 26G X 5/8" 1 ML Misc Gabapentin take one 90caps Valente Christie, 02/13/2018 300mg tablet/capsule by MAdilene Capsules mouth three times daily ongoing Hydrocodone-Acetamin take one 60tabs L40.50 Valente Christie, 02/13/2018 ophen capsule/tablet by M.D. 7.5-325mg mouth twice daily Tablets as needed for acute pain mdd 2 D3 High Potency take one 90caps Valente Mcallisterr, 09/13/2017 capsule/tablet M.D. 1000Unit Capsules daily by mouth Eliquis 1 by mouth twice a 180tabs Donna Nicole, 09/04/2017 5mg Tablets day [place] PILOT Urea 20 Intensive apply twice daily 85gm Valente Brushdor, 08/22/2017 Hydrating Cream M.D. 20% Cream Atorvastatin Calcium 1 by mouth every 90tabs Brandi Cohen, 07/11/2016 day M.D. 10mg Tablets Nifedipine ER 1 by mouth every 90tabs Brandi Cohen, 05/11/2015 30mg day M.D. Tablets ER 24HR Klor-Con M10 2 by mouth every 180tabs Branid Cohen, 12/23/2012 10Meq day M.D. Tablets ER Citalopram 1 po qd 30tabs Beck Molina, 12/05/2010 Hydrobromide M.D. 40mg Tablets Metoprolol Succinate 1 tab qAM and 1/2 90tabs Unknown ER tab qPM 200mg Tablets ER 24HR Nortriptyline HCL 2 capsules po daily 90caps Unknown 10mg Capsules Enalapril Maleate 1 by mouth twice a Puma Nixon, day 10mg Tablets Clopidogrel 1 by mouth every 90tabs Brandi Cohen, Bisulfate day M.D. 75mg Tablets Pantoprazole Sodium 1 by mouth every 30tabs Brandi Cohen, day M.D. 40mg Tablets DR History Medications Clobetasol Propionate apply twice daily as 30gm Valente Shahnaz, 2018 - needed to topical M.DCarlos 04/29/2019 0.05% Cream psoriatic plaques Influenza,Unspecified Unknown Injection Medications Administered in Office Medication SIG Qnty Indications Ordering Provider Date Depomedrol 40MG Genna Palacio M.D. 02/27/2019 Injection Depomedrol 40MG Genna Palacio M.D. 11/26/2018 Injection Synvisc Or Synvisc-One Genna aPlacio M.D. 09/19/2018 Injection 1 MG Injection Depomedrol [...] CPT Code Status Date Vaccine Lot # [id number] Given 06/10/2017 Influenza Virus Vaccine, Quadrivalent, Split, Preservative Free Vital Signs Date Vital Result Comment 04/29/2019 3:11pm Height 66 inches 5'6" Heart Rate 76 /min BP Systolic Sitting 128 mmHg BP Diastolic Sitting 80 mmHg Pain Level 6 O2 % BldC Oximetry 94 % 03/27/2019 10:09am Height 66 inches 5'6" Weight 196.25 lb with shoes Heart Rate 72 /min right radial BP Systolic Sitting 164 mmHg ule reg cuff BP Diastolic Sitting 110 mmHg ule reg cuff BMI (Body Mass Index) 31.7 kg/m2 Ejection Fraction 55-60% Echo 03/11/19 Results Test Date Facility Test Result H/L Range Note Laboratory test 02/06/2019 [facility] C Reactive 26.95 mg/L High <8.[address] [place] [address] [phone] Erythrocyte Sed Rate 36 mm/Hr High 0-19 CBC W/Auto 02/06/2019 [facility] White Blood 5.1 10^3/uL Normal 3.5-10.[address] [place] [address] [phone] Red Blood Count 4.09 10^6/uL Low 4.18-5.48 [...] Blood Cells % 0.0 CMP Panel 02/06/2019 [facility] Sodium 135 mmol/L Normal 135- [address] [place] [address] [phone] Potassium 4.6 mmol/L Normal 3.5-5.0 Chloride 103 [...] Egfr Non- 32.4 >60 Egfr 39.2 >60 1 Laboratory test 12/12/2018 [facility] Erythrocyte Sed 26 mm/Hr High 0-20 [address] [place] [address] [phone] CBC Auto Diff 12/12/2018 [facility] White Blood 5.9 Normal 3.5 -10.[address] Count 10^3/[place] [address] [phone] Red Blood Count 4.29 10^6/uL Normal 4.18-5.48 Hemoglobin 12.7 g/dL Low 14.0-18.0 Hematocrit 39 % Normal 36-46 Mean Corpuscular Volume 91 fL Normal 80-94 Mean Corpuscular Hemoglobin 30 pg Normal 27-31 Mean Corpuscular HGB Conc 32 g/dL Normal 31-36 Red Cell Distribution Width 23 % High 10.5-15 3 Platelet Count 245 10^3/uL Normal 150-450 Mean Platelet Volume 8.8 fL Normal 7.4-10.4 Abs Neutrophils 3.4 10^3/uL Normal 1.5-7.7 Abs Lymphocytes 1.7 10^3/uL Normal 1.0-4.8 Abs Monocytes 0.3 10^3/uL Normal 0-0.8 Abs Eosinophils 0.4 10^3/uL Normal 0-0.6 Abs Basophils 0.1 10^3/uL Normal 0-0.2 Abs Nucleated RBC 0 10^3/uL Granulocyte % 57.7 % Lymphocyte % 29.3 % Monocyte % 5.3 % Eosinophil % 6.4 % Basophil % 1.3 % Nucleated Red Blood Cells % 0 Laboratory test 12/12/2018 [facility] C Reactive 1.63 mg/L Normal <8.[address] [place] [address] [phone] Comp Metabolic 12/12/2018 [facility] Sodium 139 Normal 135- [address] mmol/[place] [address] [phone] Potassium 4.5 mmol/L Normal 3.5-5.0 Chloride 105 mmol/L Normal 101-111 Co2 Carbon Dioxide 29 mmol/L Normal 22-32 Anion Gap 5 mmol/L Normal 2-11 Glucose 70 mg/dL Normal 70-100 Blood Urea Nitrogen 13 mg/dL Normal 6-24 Creatinine 0.98 mg/dL Normal 0.67-1.17 BUN/Creatinine Ratio 13.3 Normal 8-20 Calcium 9.3 mg/dL Normal 8.6-10.3 Total Protein 6.8 g/dL Normal 6.4-8.9 Albumin 3.9 g/dL Normal 3.2-5.2 Globulin 2.9 g/dL Normal 2-4 Albumin/Globulin Ratio 1.3 Normal 1-3 Total Bilirubin 0.60 mg/dL Normal 0.2-1.0 Alkaline Phosphatase 74 U/L Normal 34-104 Alt 22 U/L Normal 7-52 Ast 26 U/L Normal 13-39 Egfr Non- 74.6 >60 Egfr 90.2 >60 4 Basic Metabolic 12/12/2018 [facility] Sodium 138 mmol/L Normal 135-145 Panel [address] [place] [address] [phone] Potassium 4.5 mmol/L Normal 3.5-5.0 Chloride 102 mmol/L Normal 101-111 Co2 Carbon Dioxide 31 mmol/L Normal 22-32 Anion Gap 5 mmol/L Normal 2-11 Glucose 60 mg/dL Low 70-100 Blood Urea Nitrogen 13 mg/dL Normal 6-24 Creatinine 0.98 mg/dL Normal 0.67-1.17 BUN/Creatinine Ratio 13.3 Normal 8-20 Calcium 9.3 mg/dL Normal 8.6-10.3 Egfr Non- 74.6 >60 Egfr 90.2 >60 5 Comp Metabolic 11/14/2018 [facility] Sodium 138 mmol/L Normal 135-145 Panel [address] [place] [address] [phone] Potassium 4.3 mmol/L Normal 3.5-5.0 Chloride 101 mmol/L Normal 101-111 Co2 Carbon Dioxide 30 mmol/L Normal 22-32 Anion Gap 7 mmol/L Normal 2-11 Glucose 117 mg/dL High 70-100 Blood Urea Nitrogen 11 mg/dL Normal 6-24 Creatinine 0.93 mg/dL Normal 0.67-1.17 BUN/Creatinine Ratio 11.8 Normal 8-20 Calcium 9.4 mg/dL Normal 8.6-10.3 Total Protein 7.2 g/dL Normal 6.4-8.9 Albumin 3.6 g/dL Normal 3.2-5.2 Globulin 3.6 g/dL Normal 2-4 Albumin/Globulin Ratio 1.0 Normal 1-3 Total Bilirubin 0.70 mg/dL Normal 0.2-1.0 Alkaline Phosphatase 152 U/L High 34-104 Alt 22 U/L Normal 7-52 Ast 25 U/L Normal 13-39 Egfr Non- 79.2 >60 Egfr 95.8 >60 6 Laboratory test 11/14/2018 [facility] C Reactive 12.36 High < 8.[address] Protein mg/[place] [address] [phone] CBC Auto Diff 11/14/2018 [facility] White Blood 8.0 Normal 3.5 -10.[address] Count 10^3/[place] [address] [phone] Red Blood Count 4.32 10^6/uL Normal 4.00-5.40 Hemoglobin 12.2 g/dL Low 14.0-18.0 Hematocrit 38 % Low 42-52 Mean Corpuscular Volume 88 fL Normal 80-94 Mean Corpuscular Hemoglobin 28 pg Normal 27-31 Mean Corpuscular HGB Conc 32 g/dL Normal 31-36 Red Cell Distribution Width 23 % High 10.5-15 Platelet Count 451 10^3/uL High 150-450 Mean Platelet Volume 8.0 fL Normal 7.4-10.4 Abs Neutrophils 5.4 10^3/uL Normal 1.5-7.7 Abs Lymphocytes 1.5 10^3/uL Normal 1.0-4.8 Abs Monocytes 0.7 10^3/uL Normal 0-0.8 Abs Eosinophils 0.4 10^3/uL Normal 0-0.6 Abs Basophils 0.1 10^3/uL Normal 0-0.2 Abs Nucleated RBC 0 10^3/uL Granulocyte % 67.3 % Lymphocyte % 18.3 % Monocyte % 8.7 % Eosinophil % 4.6 % Basophil % 1.1 % Nucleated Red Blood Cells % 0.1 Laboratory test 11/14/2018 [facility] Erythrocyte Sed 59 mm/Hr High 0-20 [address] [place] [address] [phone] Pathologist Review (SEE NOTE) 8 1 Because ethnic data is not always [...] 5 Kidney failure <15 (or dialysis) 2 Test Performed by: [facility] [address] [place] [id number] Jay Aly M.D. Director of Laboratory 3 Consistent with Previous Results Reported on 11/14/18 4 Because ethnic data is not always readily [...] 15-29 5 Kidney failure <15 (or dialysis) 5 Because ethnic data is not always readily [...] 15-29 5 Kidney failure <15 (or dialysis) 6 Because ethnic data is not always readily [...] 15-29 5 Kidney failure <15 (or dialysis) 7 Test Performed by: [facility] [address] [place] [id number] Jay Aly M.D. Director of Laboratory 8 Mild normocytic anemia with mild thrombocytosis noted. Additional studies as clinically warranted. Reviewed by Dr. Aly Procedures Date Code Description Status 03/27/2019 53591 EKG Tracing & Interpretation Completed 03/11/2019 43837 ECHO Transthoracic, Real-Time 2D With Doppler And Completed Color Flow 03/11/2019 90046 ECHO Transthoracic, Real-Time 2D With Doppler And Completed Color Flow 02/27/2019 91397 Inject/Drain Joint/Bursa Major W/O US Completed 01/02/2019 66013 Nerve Conduction 03-04 Studies Completed 01/02/2019 04684 Needle Electromyography Each Extremity W/Related Completed Paraspinal Areas 11/26/2018 86215 Inject/Drain Joint/Bursa Major W/O US Completed 01/14/2018 [id number] Diabetic Retinal Eye Exam Completed 08/26/2017 718121245 Bone Mineral Density Test Completed 11/06/2016 604761456 Diabetic Retinal Eye Exam Completed 08/07/2016 [id number] Diabetic Retinal Eye Exam Completed Medical Devices Description No Information Available Encounters Type Date Location Provider Dx Diagnosis Office Visit 03/27/2019 [facility] Brandi Noel, I25.10 Athscl heart 10:20a [facility] [place] disease of teller coronary artery w/o ang pctrs I48.0 Paroxysmal atrial fibrillation I65.23 Occlusion and stenosis of bilateral carotid arteries E78.2 Mixed hyperlipidemia N20.0 Calculus of kidney Z01.810 Encounter for preprocedural cardiovascular examination I71.2 Thoracic aortic aneurysm, without rupture 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 M.D. knee M25.462 Effusion, left knee M17.12 Unilateral primary osteoarthritis, left knee Office Visit 02/25/2019 Rheumatology Valente L40.50 Arthropathic 11:40a [facility] [place] Christie M.D. psoriasis, unspecified Z79.899 Other ferry terminal agent (current) drug therapy M10.9 Gout, unspecified M54.16 Radiculopathy, lumbar region Office Visit 02/18/2019 [facility] Aidan Fontaine M54.16 Radiculopathy, 3:00p [facility] [place] Jones M.D. lumbar region Office Visit 02/15/2019 [facility] Nadia N17.9 Acute kidney 10:20a aminta Yañez M.D. failure, Hospitalists unspecified N13.2 Hydronephrosis with renal and ureteral calculous obstruction Office Visit 02/14/2019 [facility] Nadia Meza N17.9 Acute kidney 10:20a aminta Yañez M.D. failure, Hospitalists unspecified N13.2 Hydronephrosis with renal and ureteral calculous obstruction I12.9 Hypertensive chronic kidney disease w stg 1-4/unsp [facility] kdny N18.9 Chronic kidney disease, unspecified I48.0 Paroxysmal atrial fibrillation E11.649 Type 2 diabetes mellitus with hypoglycemia without coma Office Visit 02/13/2019 [facility] N13.0 Hydronephrosis with 10:20a Assoc,aminta Borden M.D. ureteropelvic Hospitalists junction obstruction N17.9 Acute kidney failure, unspecified I10 Essential (primary) hypertension E11.9 Type 2 diabetes mellitus without complications Office Visit 12/17/2018 [facility] Maximo Hawkins, M62.81 Muscle weakness 1:00p [facility] [place] PILOT (generalized) Office Visit 12/17/2018 Rheumatology Valente L40.50 Arthropathic 11:40a [facility] [place] Christie M.D. psoriasis, unspecified Z79.899 Other ferry terminal agent (current) drug therapy M10.9 Gout, unspecified N18.9 Chronic kidney disease, unspecified Assessments Date Code Description Provider 04/29/2019 L40.50 Arthropathic psoriasis, unspecified Valente Christie M.D. 04/29/2019 E79.0 Hyperuricemia without signs of inflammatory Valente Christie M.D. arthritis and to 04/29/2019 M62.81 Muscle weakness (generalized) Valente Christie M.D. 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 03/27/2019 I25.10 Atherosclerotic heart disease of teller Brandi Cohen M.D. coronary artery with 03/27/2019 I48.0 Paroxysmal atrial fibrillation Brandi Cohen M.D. 03/27/2019 I65.23 Occlusion and stenosis of bilateral carotid Brandi Cohen M.D. arteries 03/27/2019 E78.2 Mixed hyperlipidemia Brandi Cohen M.D. 03/27/2019 N20.0 Calculus of kidney Brandi Cohen M.D. 03/27/2019 Z01.810 Encounter for preprocedural cardiovascular Brandi Cohen M.D. examination 03/27/2019 I71.2 Thoracic aortic aneurysm, without rupture Brandi Cohen M.D. 03/27/2019 Z79.01 ad terminal makeup operator (current) use of anticoagulants Brandi Cohen M.D. 03/11/2019 I71.2 Thoracic aortic aneurysm, without rupture Brandi Cohen M.D. 03/11/2019 I71.2 Thoracic aortic aneurysm, without rupture Ica ECHO Schedule 02/27/2019 M25.562 Pain in left knee Genna Palacio M.D. 02/27/2019 M25.462 Effusion, left knee Genna Palacio M.D. 02/27/2019 M17.12 Unilateral primary osteoarthritis, left Genna Palacio M.D. knee 02/25/2019 L40.50 Arthropathic psoriasis, unspecified Valente Christie M.D. 02/25/2019 Z79.899 Other ferry terminal agent (current) drug therapy Valente Christie M.D. 02/25/2019 M10.9 Gout, unspecified Valente Christie M.D. 02/25/2019 M54.16 Radiculopathy, lumbar region Valente Christie M.D. 02/18/2019 M54.16 Radiculopathy, lumbar region Darren Jones M.D. 02/15/2019 N17.9 Acute kidney failure, unspecified Nadia Meza M.D. 02/15/2019 N13.2 Hydronephrosis with renal and ureteral Nadia Meza M.D. calculous obstruction 02/14/2019 N17.9 Acute kidney failure, unspecified Nadia Meza M.D. 02/14/2019 N13.2 Hydronephrosis with renal and ureteral Nadia Meza M.D. calculous obstruction 02/14/2019 I12.9 Hypertensive chronic kidney disease w stg Nadia Meza M.D. 1-4/unsp chr kdny 02/14/2019 N18.9 Chronic kidney disease, unspecified Nadia Meza M.D. 02/14/2019 I48.0 Paroxysmal atrial fibrillation Nadia Meza M.D. 02/14/2019 E11.649 Type 2 diabetes mellitus with hypoglycemia Nadia Meza M.D. without coma 02/13/2019 N13.0 Hydronephrosis with ureteropelvic junction Adama Borden M.D. obstruction 02/13/2019 N17.9 Acute kidney failure, unspecified Adama Borden M.D. 02/13/2019 I10 Essential (primary) hypertension Adama Borden M.D. 02/13/2019 E11.9 Type 2 diabetes mellitus without Adama Borden M.D. complications 01/02/2019 M54.16 Radiculopathy, lumbar region Darren Jones M.D. 12/17/2018 M62.81 Muscle weakness (generalized) Maximo Hawkins, [place] PILOT 12/17/2018 L40.50 Arthropathic psoriasis, unspecified Valente Christie M.D. 12/17/2018 Z79.899 Other ferry terminal agent (current) drug therapy Valente Christie M.D. 12/17/2018 M10.9 Gout, unspecified Valente Christie M.D. 12/17/2018 N18.9 Chronic kidney disease, unspecified Valente Christie M.D. 11/26/2018 L40.0 Psoriasis vulgaris Genna Palacio M.D. 11/26/2018 M25.462 Effusion, left knee Genna Palacio M.D. 11/26/2018 M25.562 Pain in left knee Genna Palacio M.D. 11/26/2018 M10.9 Gout, jovanyified Genna Palacio M.D. 11/26/2018 M17.12 Unilateral primary osteoarthritis, left Genna Palacio M.D. knee 11/26/2018 L40.50 Arthropathic psoriasis, unspecified Genna Palacio M.D. Plan of Treatment Future Appointment(s):05/29/2019 9:15 am - Genna Palacio M.D. at [facility]/05/2019 9:00 am - Valente Christie M.D. at [facility]06/17/2019 10:45 am - Darren Jones M.D. at [facility]04/29/2019 - Valente Christie M.D.L40.50 Arthropathic psoriasis, [id number] Hyperuricemia without signs of inflammatory arthritis and toM62.81 Muscle weakness (generalized)L40.0 Psoriasis vulgarisFollow up:Follow up in 3 to 4 weeks or sooner as scheduled Functional Status Description No Information Available Mental Status Description No Information Available Referrals Description No Information Available
--- OUTSIDE RECORDS SUMMARY | 2019-06-19 16:52 | XMS REPORT | Continuity of Care Document ---
:1945 External Reference #:[id number] Author Name Genna Palacio M.D. (transmitted by agent of provider Sherley Easley) Address [address] [place] [id number] Care Team Providers Name Role Phone Puma Nixon MD - Internal Medicine Care Team Information Supervisor Fireworks Assembly Lavinia Gee MD - Hand Surgery Care Team Information Supervisor Fireworks Assembly Problems Active Problems Provider Date Postoperative Wound Closure Encounter Krishna Miles M.D., [facility], Onset: 2013 [facility] Coronary arteriosclerosis Brandi Cohen M.D. Onset: 07/06/2014 [...] and pipe as well Smoking Status Reviewed: 05/29/19 Former Cigarette Smoker Formerly smoked cigar and [...] 4-50-2mg capsule/tablet M.D. Tablets daily by mouth BD 1ML for use weekly with 90units Valente Christie, 04/29/2018 Syringe/Needle/Slip sc methotrexate M.D. Tip/Subq/26G X 5/8" 26G X 5/8" 1 ML Misc Gabapentin take one 90caps Valente Christie, 02/13/2018 300mg tablet/capsule by M.DCarlos Capsules mouth three times daily ongoing Hydrocodone-Acetamin take one 60tabs L40.50 Valente Christie, 02/13/2018 ophen capsule/tablet by M.DCarlos 7.5-325mg mouth twice daily Tablets as needed for acute pain mdd 2 D3 High Potency take one 90caps Valente Christie, 09/13/2017 capsule/tablet M.D. 1000Unit Capsules daily by mouth Eliquis 1 by mouth twice a 180tabs Donna Chiquisvictor hugo, 09/04/2017 5mg Tablets day CREAM DUMPER Urea 20 Intensive apply twice daily 85gm [...] by mouth twice a Puma Nixon, day MD 10mg Tablets Clopidogrel 1 by mouth every [...] CPT Code Status Date Vaccine Lot # [id number] Given 06/10/2017 Influenza Virus Vaccine, Quadrivalent, Split, Preservative Free Vital Signs Date Vital Result Comment 05/29/2019 9:42am Height 66 inches 5'6" Weight 196.00 lb Heart Rate 67 /min BP Systolic 112 mmHg BP Diastolic 74 mmHg Body Temperature 97.2 F Pain Level 9 BMI (Body Mass Index) 31.6 kg/m2 04/29/2019 3:11pm Height 66 inches 5'6" Heart Rate 76 /min BP Systolic Sitting 128 mmHg BP Diastolic Sitting 80 mmHg Pain Level 6 O2 % dC Oximetry 94 % Results Test Date Facility Test Result H/L Range Note CBC No Diff 05/25/2019 [facility] White Blood 6.6 10^3/uL Normal 3.5-10.[address] [place] [address] [phone] Red Blood Count 3.28 10^6/uL Low 4.18-5.48 Hemoglobin 9.9 g/dL Low 14.0-18.0 Hematocrit 30 % Low 42-52 Mean Corpuscular Volume 92 fL Normal 80-94 Mean Corpuscular Hemoglobin 30 pg Normal 27-31 Mean Corpuscular HGB Conc 33 g/dL Normal 31-36 Red Cell Distribution Width 14 % Normal 10-15 Platelet Count 327 10^3/uL Normal 150-450 Mean Platelet Volume 7.9 fL Normal 7.4-10.4 Basic Metabolic 05/25/2019 [facility] Sodium 137 mmol/L Normal 135-[address] [place] [address] [phone] Potassium 4.5 mmol/L Normal 3.5-5.0 Chloride 102 mmol/L Normal 101-111 Co2 Carbon Dioxide 30 mmol/L Normal 22-32 Anion Gap 5 mmol/L Normal 2-11 Glucose 140 mg/dL High 70-100 Blood Urea Nitrogen 23 mg/dL Normal 6-24 Creatinine 1.41 mg/dL High 0.67-1.17 BUN/Creatinine Ratio 16.3 Normal 8-20 Calcium 8.8 mg/dL Normal 8.6-10.3 Egfr Non- 49.0 >60 Egfr 59.3 >60 1 Laboratory test 02/06/2019 [facility] C Reactive 26.95 mg/L High <8.[address] [place] [address] [phone] Erythrocyte Sed Rate 36 mm/Hr High 0-19 CBC W/Auto 02/06/2019 [facility] White Blood 5.1 10^3/uL Normal 3.5-10.[address] [place] [address] [phone] Red Blood Count 4.09 10^6/uL Low 4.18-5.48 [...] Blood Cells % 0.0 CMP Panel 02/06/2019 [facility] Sodium 135 mmol/L Normal 135- 145 [address] [place] [address] [phone] Potassium 4.6 mmol/L Normal 3.5-5.0 Chloride 103 [...] Egfr Non- 32.4 >60 Egfr 39.2 >60 2 Basic Metabolic 12/12/2018 [facility] Sodium 138 mmol/L Normal 135-145 Panel [address] [place] [address] [phone] Potassium 4.5 mmol/L Normal 3.5-5.0 Chloride 102 mmol/L Normal 101-111 Co2 Carbon Dioxide 31 mmol/L Normal 22-32 Anion Gap 5 mmol/L Normal 2-11 Glucose 60 mg/dL Low 70-100 Blood Urea Nitrogen 13 mg/dL Normal 6-24 Creatinine 0.98 mg/dL Normal 0.67-1.17 BUN/Creatinine Ratio 13.3 Normal 8-20 Calcium 9.3 mg/dL Normal 8.6-10.3 Egfr Non- 74.6 >60 Egfr 90.2 >60 3 Comp Metabolic 12/12/2018 [facility] Sodium 139 mmol/L Normal 135-[address] [place] [address] [phone] Potassium 4.5 mmol/L Normal 3.5-5.0 Chloride 105 [...] Non- 74.6 >60 Egfr 90.2 >60 4 Laboratory test 12/12/2018 [facility] C Reactive 1.63 mg/L Normal <8.[address] [place] [address] [phone] CBC Auto Diff 12/12/2018 [facility] White Blood 5.9 Normal 3.5 -10.[address] Count 10^3/[place] [address] [phone] Red Blood Count 4.29 10^6/uL Normal 4.18-5.48 Hemoglobin 12.7 g/dL Low 14.0-18.0 Hematocrit 39 % Normal 36-46 Mean Corpuscular Volume 91 fL Normal 80-94 Mean Corpuscular Hemoglobin 30 pg Normal 27-31 Mean Corpuscular HGB Conc 32 g/dL Normal 31-36 Red Cell Distribution Width 23 % High 10.5-15 5 Platelet Count 245 10^3/uL Normal 150-450 Mean [...] Blood Cells % 0 Laboratory test 12/12/2018 [facility] Erythrocyte Sed 26 mm/Hr High 0-20 [address] Rate [place] [id number] [phone] 1 Because ethnic data is not always [...] 15-29 5 Kidney failure <15 (or dialysis) 4 Because ethnic data is not always [...] 5 Kidney failure <15 (or dialysis) 5 Consistent with Previous Results Reported on 11/14/18 6 Test Performed by: [facility] [address] [place] [id number] Jay Aly M.D. Director of Laboratory Procedures Date Code Description Status 05/29/2019 22681 Inject/Drain Joint/Bursa Major W/O US Completed 03/27/2019 41670 EKG Tracing & Interpretation Completed 03/11/2019 98719 ECHO Transthoracic, Real-Time 2D With Doppler And Completed Color Flow 03/11/2019 36715 ECHO Transthoracic, Real-Time 2D With Doppler And Completed Color Flow 02/27/2019 73383 Inject/Drain Joint/Bursa Major W/O US Completed 02/14/2019 66593 EKG, Interpretation Only Completed 01/02/2019 16034 Nerve Conduction 03-04 Studies Completed 01/02/2019 41782 Needle Electromyography Each Extremity W/Related Completed Paraspinal Areas 01/14/2018 847228154 Diabetic Retinal Eye Exam Completed 08/26/2017 722662691 Bone Mineral Density Test Completed 11/06/2016 833471332 Diabetic Retinal Eye Exam Completed 08/07/2016 671915015 Diabetic Retinal Eye Exam Completed Medical Devices Description No Information Available Encounters Type Date Location Provider Dx Diagnosis Office Visit 04/29/2019 Rheumatology Valente Christie L40.50 Arthropathic 3:20p [facility] Cohen psoriasis, unspecified E79.0 Hyperuricemia w/o signs of inflam arthrit and tophaceous dis M62.81 Muscle weakness (generalized) L40.0 Psoriasis vulgaris Office Visit 03/27/2019 10:20a [facility] Brandi Cohen, I25.10 Ath[facility] MAdilene disease of [place] coronary artery w/o ang pctrs I48.0 Paroxysmal atrial fibrillation I65.23 Occlusion and stenosis of bilateral carotid arteries E78.2 Mixed hyperlipidemia N20.0 Calculus of kidney Z01.810 Encounter for preprocedural cardiovascular examination I71.2 Thoracic aortic aneurysm, without rupture Z79.01 emt intermediate (current) use of 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 M.D. knee M25.462 Effusion, left knee M17.12 Unilateral primary osteoarthritis, left knee Office Visit 02/25/2019 Rheumatology Valente L40.50 Arthropathic 11:40a [facility] Christie M.D. psoriasis, unspecified Z79.899 Other chcf (current) drug therapy M10.9 Gout, unspecified M54.16 Radiculopathy, lumbar region Office Visit 02/18/2019 [place] Aidan Fontaine M54.16 Radiculopathy, 3:00p [facility] Jones M.D. lumbar region Office Visit 02/15/2019 [facility] Nadia N17.9 Acute kidney 10:20a aminta Yañez M.D. failure, Hospitalists unspecified N13.2 Hydronephrosis with renal and ureteral calculous obstruction Office Visit 02/14/2019 [facility] Nadia Meza, N17.9 Acute kidney 10:20a aminta Yañez M.D. failure, Hospitalists unspecified N13.2 Hydronephrosis with renal and ureteral calculous obstruction I12.9 Hypertensive chronic kidney disease w stg 1-4/unsp chr kdny N18.9 Chronic kidney disease, unspecified I48.0 Paroxysmal atrial fibrillation E11.649 Type 2 diabetes mellitus with hypoglycemia without coma Office Visit 02/13/2019 [facility] Adama N13.0 Hydronephrosis with 10:20a aminta Yañez M.D. ureteropelvic Hospitalists junction obstruction N17.9 Acute kidney failure, unspecified I10 Essential (primary) hypertension E11.9 Type 2 diabetes mellitus without complications Office Visit 12/17/2018 [place] [facility] Maximo Hawkins, M62.81 Muscle weakness 1:00p Services Of Chief Inspector CREAM DUMPER (generalized) Office Visit 12/17/2018 Rheumatology Valente L40.50 Arthropathic 11:40a [facility] Christie M.D. psoriasis, unspecified Z79.899 Other chcf (current) drug therapy M10.9 Gout, unspecified N18.9 Chronic kidney disease, unspecified Assessments Date Code Description Provider 05/29/2019 M25.562 Pain in left knee Genna [...] Atherosclerotic heart disease of Brandi Cohen M.D. [place] coronary artery with 03/27/2019 I48.0 Paroxysmal atrial fibrillation Brandi Cohen M.D. 03/27/2019 I65.23 Occlusion and stenosis of bilateral Brandi Cohen M.D. carotid arteries 03/27/2019 E78.2 Mixed hyperlipidemia Brandi Cohen M.D. 03/27/2019 N20.0 Calculus of kidney Brandi Cohen M.D. 03/27/2019 Z01.810 Encounter for preprocedural Brandi Cohen M.D. cardiovascular examination 03/27/2019 I71.2 Thoracic aortic aneurysm, without Brandi Cohen M.D. rupture 03/27/2019 Z79.01 shelter (current) use of Brandi Cohen M.D. anticoagulants [...] unspecified Valente Christie M.D. 02/25/2019 Z79.899 Other terminal carman (current) drug Valente Christie M.D. therapy 02/25/2019 [...] 12/17/2018 M62.81 Muscle weakness (generalized) Maximo Hawkins, CREAM DUMPER 12/17/2018 L40.50 Arthropathic psoriasis, unspecified Valente Christie M.D. 12/17/2018 Z79.899 Other terminal carman (current) drug Valente Christie M.D. therapy 12/17/2018 M10.9 Gout, unspecified Valente Christie M.D. 12/17/2018 N18.9 Chronic kidney disease, unspecified Valente Christie M.D. Plan of Treatment Future Appointment(s):06/05/2019 9:00 am - Valente Christie M.D. at [facility]06/17/2019 10:45 am - Darren Jones M.D. at [place] [facility]05/29/2019 - Genna Palacio M.D.M25.562 Pain in left kneeFollow up:Follow up: january call for synvisc three for L kneeM25.462 Effusion , left kneeM17.12 Unilateral primary osteoarthritis, left kneeL40.0 Psoriasis vulgaris Functional Status Description No Information Available Mental Status Description No Information Available Referrals Description No Information Available
--- OUTSIDE RECORDS SUMMARY | 2019-06-19 16:52 | XMS REPORT | Continuity of Care Document ---
:1945 External Reference #:[id number] Author Name Donna Nicole NP (transmitted by agent of provider Mary Riggs) Address [address] [place] [id number] Care Team Providers Name Role Phone Puma Nixon MD - Internal Medicine Care Team Information Ammunition Components Inspector [phone] Lavinia Gee MD - Hand Surgery Care Team Information Ammunition Components Inspector [phone] Problems Active Problems Provider Date Postoperative Wound Closure Encounter Krishna Miles M.D., [facility], Onset: 2013 [facility] Coronary arteriosclerosis Brandi Cohen M.D. Onset: 07/06/2014 [...] 180tabs Donna Nicole, 09/04/2017 5mg Tablets day MACHINE HELPER Urea 20 Intensive apply twice daily 85gm [...] CPT Code Status Date Vaccine Lot # [id number] Given 06/10/2017 Influenza Virus Vaccine, Quadrivalent, Split, [...] H/L Range Note CBC No Diff 06/02/2019 [facility] White Blood 8.3 10^3/uL Normal 3.5-10.[address] [place] [address] [phone] Red Blood Count 3.70 10^6/uL Low 4.18-5.48 Hemoglobin 10.8 g/dL Low 14.0-18.0 Hematocrit 33 % Low 42-52 Mean Corpuscular Volume 90 fL Normal 80-94 Mean Corpuscular Hemoglobin 29 pg Normal 27-31 Mean Corpuscular HGB Conc 32 g/dL Normal 31-36 Red Cell Distribution Width 14 % Normal 10-15 Platelet Count 424 10^3/uL Normal 150-450 Mean Platelet Volume 8.1 fL Normal 7.4-10.4 Basic Metabolic 06/02/2019 [facility] Sodium 138 mmol/L Normal 135-[address] [place] [address] [phone] Potassium 4.6 mmol/L Normal 3.5-5.0 Chloride 101 mmol/L Normal 101-111 Co2 Carbon Dioxide 30 mmol/L Normal 22-32 Anion Gap 7 mmol/L Normal 2-11 Glucose 126 mg/dL High 70-100 Blood Urea Nitrogen 22 mg/dL Normal 6-24 Creatinine 1.28 mg/dL High 0.67-1.17 BUN/Creatinine Ratio 17.2 Normal 8-20 Calcium 9.4 mg/dL Normal 8.6-10.3 Egfr Non- 54.8 >60 Egfr 66.3 >60 1 CBC No Diff 05/25/2019 [facility] White Blood 6.6 10^3/uL Normal 3.5-10.[address] [place] [address] [phone] Red Blood Count 3.28 10^6/uL Low 4.18-5.48 Hemoglobin 9.9 g/dL Low 14.0-18.0 Hematocrit 30 % Low 42-52 Mean Corpuscular Volume 92 fL Normal 80-94 Mean Corpuscular Hemoglobin 30 pg Normal 27-31 Mean Corpuscular HGB Conc 33 g/dL Normal 31-36 Red Cell Distribution Width 14 % Normal 10-15 Platelet Count 327 10^3/uL Normal 150-450 Mean Platelet Volume 7.9 fL Normal 7.4-10.4 Basic Metabolic 05/25/2019 [facility] Sodium 137 mmol/L Normal 135-[address] [place] [address] [phone] Potassium 4.5 mmol/L Normal 3.5-5.0 Chloride 102 mmol/L Normal 101-111 Co2 Carbon Dioxide 30 mmol/L Normal 22-32 Anion Gap 5 mmol/L Normal 2-11 Glucose 140 mg/dL High 70-100 Blood Urea Nitrogen 23 mg/dL Normal 6-24 Creatinine 1.41 mg/dL High 0.67-1.17 BUN/Creatinine Ratio 16.3 Normal 8-20 Calcium 8.8 mg/dL Normal 8.6-10.3 Egfr Non- 49.0 >60 Egfr 59.3 >60 2 Laboratory test 02/06/2019 [facility] C Reactive 26.95 mg/L High <8.[address] [place] [address] [phone] Erythrocyte Sed Rate 36 mm/Hr High 0-19 CBC W/Auto 02/06/2019 [facility] White Blood 5.1 10^3/uL Normal 3.5-10.[address] [place] [address] [phone] Red Blood Count 4.09 10^6/uL Low 4.18-5.48 [...] Blood Cells % 0.0 CMP Panel 02/06/2019 [facility] Sodium 135 mmol/L Normal 135- [address] [place] [address] [phone] Potassium 4.6 mmol/L Normal 3.5-5.0 Chloride 103 [...] Non- 32.4 >60 Egfr 39.2 >60 3 Laboratory test 12/12/2018 [facility] Erythrocyte Sed 26 mm/Hr High 0-20 [address] [place] [address] [phone] CBC Auto Diff 12/12/2018 [facility] White Blood 5.9 Normal 3.5 -10.[address] Count 10^3/[place] [address] [phone] Red Blood Count 4.29 10^6/uL Normal 4.18-5.48 [...] Blood Cells % 0 Laboratory test 12/12/2018 [facility] C Reactive 1.63 mg/L Normal <8.[address] [place] [address] [phone] Comp Metabolic 12/12/2018 [facility] Sodium 139 Normal 135- [address] mmol/[place] [address] [phone] Potassium 4.5 mmol/L Normal 3.5-5.0 Chloride 105 [...] Egfr Non- 74.6 >60 Egfr 90.2 >60 6 Basic Metabolic 12/12/2018 [facility] Sodium 138 mmol/L Normal 135-[address] [place] [address] [phone] Potassium 4.5 mmol/L Normal 3.5-5.0 Chloride 102 mmol/L Normal 101-111 Co2 Carbon Dioxide 31 mmol/L Normal 22-32 Anion Gap 5 mmol/L Normal 2-11 Glucose 60 mg/dL Low 70-100 Blood Urea Nitrogen 13 mg/dL Normal 6-24 Creatinine 0.98 mg/dL Normal 0.67-1.17 BUN/Creatinine Ratio 13.3 Normal 8-20 Calcium 9.3 mg/dL Normal 8.6-10.3 Egfr Non- 74.6 >60 Egfr 90.2 >60 7 1 Because ethnic data is not always [...] 5 Kidney failure <15 (or dialysis) 4 Test Performed by: [facility] [address] [place] [id number] Jay Aly M.D. Director of Laboratory 5 Consistent with Previous Results Reported on 11/14/18 6 Because ethnic data is not always [...] 5 Kidney failure <15 (or dialysis) 7 Because ethnic data is not always readily [...] (or dialysis) Procedures Date Code Description Status 05/29/2019 86296 Inject/Drain Joint/Bursa Major W/O US Completed 03/27/2019 66711 EKG Tracing & Interpretation Completed 03/11/2019 94630 ECHO Transthoracic, Real-Time 2D With Doppler And Completed Color Flow 03/11/2019 98490 ECHO Transthoracic, Real-Time 2D With Doppler And Completed Color Flow 02/27/2019 74932 Inject/Drain Joint/Bursa Major W/O US Completed 02/14/2019 61112 EKG, Interpretation Only Completed 01/02/2019 22529 Nerve Conduction 03-04 Studies Completed 01/02/2019 88612 Needle Electromyography Each Extremity W/Related Completed Paraspinal Areas 01/14/2018 002562234 Diabetic Retinal Eye Exam Completed 08/26/2017 164577763 Bone Mineral Density Test Completed 11/06/2016 352417447 Diabetic Retinal Eye Exam Completed 08/07/2016 769751538 Diabetic Retinal Eye Exam Completed Medical Devices Description No Information Available Encounters Type Date Location Provider Dx Diagnosis Office Visit 04/29/2019 Rheumatology Valente Christie, L40.50 Arthropathic 3:20p [facility] Vicki psoriasis, unspecified E79.0 Hyperuricemia w/o signs of inflam arthrit and tophaceous dis M62.81 Muscle weakness (generalized) L40.0 Psoriasis vulgaris Office Visit 03/27/2019 10:20a [facility] Brandi Cohen, I25.10 [facility] [place] coronary artery w/o ang pctrs I48.0 Paroxysmal atrial fibrillation I65.23 Occlusion and stenosis of bilateral carotid arteries E78.2 Mixed hyperlipidemia N20.0 Calculus of kidney Z01.810 Encounter for preprocedural cardiovascular examination I71.2 Thoracic aortic aneurysm, without rupture 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 psoriasis, unspecified Z79.899 Other long term care administrator (current) drug therapy M10.9 Gout, unspecified M54.16 Radiculopathy, lumbar region Office Visit 02/18/2019 [facility] Darren RagsdaleCarlos M54.16 Radiculopathy, 3:00p [facility] Jones M.D. lumbar region Office Visit 02/15/2019 [facility] Nadia N17.9 Acute kidney 10:20a Assaminta charles M.D. failure, Hospitalists unspecified N13.2 Hydronephrosis with renal and ureteral calculous obstruction Office Visit 02/14/2019 [facility] Nadia Meza, N17.9 Acute kidney 10:20a Assaminta charles M.D. failure, Hospitalists unspecified N13.2 Hydronephrosis with renal and ureteral calculous obstruction I12.9 Hypertensive chronic kidney disease w stg 1-4/unsp chr kdny N18.9 Chronic kidney disease, unspecified I48.0 Paroxysmal atrial fibrillation E11.649 Type 2 diabetes mellitus with hypoglycemia without coma Office Visit 02/13/2019 [facility] Adama N13.0 Hydronephrosis with 10:20a Assocaminta M.D. ureteropelvic Hospitalists junction obstruction N17.9 Acute kidney failure, unspecified I10 Essential (primary) hypertension E11.9 Type 2 diabetes mellitus without complications Office Visit 12/17/2018 [facility] Maximo Shaverbernice, M62.81 Muscle weakness 1:00p [facility] MACHINE HELPER (generalized) Office Visit 12/17/2018 Rheumatology Valente L40.50 Arthropathic 11:40a [facility] Christie M.D. psoriasis, unspecified Z79.899 Other long-term (current) drug therapy M10.9 Gout, unspecified N18.9 Chronic kidney disease, unspecified Assessments Date Code Description Provider 06/05/2019 I10 Essential (primary) hypertension Donna Nicole NP 06/05/2019 L40.50 Arthropathic psoriasis, unspecified Valente Christie M.D. 06/05/2019 I25.10 Atherosclerotic heart disease of Donna Nicole NP [place] coronary artery without angina pectoris 06/05/2019 E79.0 Hyperuricemia without signs of Valente Christie M.D. inflammatory arthritis and to 06/05/2019 I48.0 Paroxysmal atrial fibrillation Donna Nicole NP 06/05/2019 M62.81 Muscle weakness (generalized) Valente Christie M.D. 06/05/2019 I65.23 Occlusion and stenosis of bilateral Donna Nicole NP carotid arteries 06/05/2019 Z79.899 Other long term care administrator (current) drug Valente Christie M.D. therapy 06/05/2019 I71.2 Thoracic aortic aneurysm, without Donna Nicole NP rupture 05/29/2019 M25.562 Pain in left knee [...] Atherosclerotic heart disease of Brandi Cohen M.D. [place] coronary artery with 03/27/2019 I48.0 Paroxysmal atrial fibrillation Brandi Cohen M.D. 03/27/2019 I65.23 Occlusion and stenosis of bilateral Brandi Cohen M.D. carotid arteries 03/27/2019 E78.2 Mixed hyperlipidemia Brandi Cohen M.D. 03/27/2019 N20.0 Calculus of kidney Brandi Cohen M.D. 03/27/2019 Z01.810 Encounter for preprocedural Brandi Cohen M.D. cardiovascular examination 03/27/2019 I71.2 Thoracic aortic aneurysm, without Brandi Cohen M.D. rupture 03/27/2019 Z79.01 moth exterminator (current) use of Brandi Cohen M.D. anticoagulants [...] unspecified Valente Christie M.D. 02/25/2019 Z79.899 Other long term care administrator (current) drug Valente Christie M.D. therapy 02/25/2019 [...] unspecified Valente Christie M.D. 12/17/2018 Z79.899 Other long term care administrator (current) drug Valente Christie M.D. therapy 12/17/2018 M10.9 Gout, unspecified Valente Christie M.D. 12/17/2018 N18.9 Chronic kidney disease, unspecified Valente Christie M.D. Plan of Treatment Future Appointment(s):06/19/2019 2:30 pm - Donna Nicole NP at [facility]08/05/2019 9:40 am - Valente Christie M.D. at [facility]06/17/2019 10:45 am - Darren Jones M.D. at [place] [facility]06/05/2019 - Donna Nicole NPI10 Essential (primary) rwczlrnrlifeN79.10 Atherosclerotic heart disease of [place] coronary artery without angina pectorisFollow up:follow up in two weeks to discuss going back on antiplatelet therapy( Aspirin) follow up with Dr. Cohen in 4-5 months.I48.0 Paroxysmal atrial sobxgmyolvqaY33.23 Occlusion and stenosis of bilateral carotid arteriesNew Xrays:VL Carotid Bilateral, Ordered: I71.2 Thoracic aortic aneurysm, without rupture Functional Status Description No Information Available Mental Status Description No Information Available Referrals Description No Information Available
[2019-06-19 16:59] LABS: INR 1.52 (0.82-1.09)
[2019-06-19 17:10] LABS: Albumin 3.4 g/dL (3.2-5.2); Calcium 8.9 mg/dL (8.6-10.3); EGFR African American 78.1 (>60); EGFR Non-African American 64.6 (>60); Globulin 3.4 g/dL (2-4); Potassium 4.3 mmol/L (3.5-5.0); Total Bilirubin 0.3 mg/dL (0.2-1.0); Total Protein 6.8 g/dL (6.4-8.9)
[2019-06-19 17:12] LABS: Troponin I 0.01 ng/mL (<0.04)
--- NOTE | 2019-06-19 17:26 | ED ---
HPI Chest Pain - HPI Summary HPI Summary: Mr. Gregory had a mechanical fall for 5 days ago. He injured his back and was evaluated by his PCP with x-rays. He was found to have a new T8 compression fracture. Since that time has had back and chest pain. He went to the [facility] today and was evaluated. There was a concern that his chest pain could be from his known dorsal aortic aneurysm or primary cardiac problem. He was transferred over. He denies any weakness or paresthesias or incontinence of bowel or bladder. He is not short of breath but it does hurt somewhat to take a deep breath. His pain is exacerbated by movement or touch. - History of Current Complaint Chief Complaint: EDFall Time Seen by Provider: 06/19/19 16:08 Hx Obtained From: Patient, Family/Pourer Buggy Ladle Onset/Duration: Started Days Ago Timing: Constant Initial Severity: Moderate Current Severity: Moderate Pain Intensity: 5 Chest Pain Location: Diffuse, Lower Sternal Chest Pain Radiates: Yes Chest Pain Radiates To:: Back Character: Dull/Aching Aggravating Factor(s): Movement, Deep Breaths Alleviating Factor(s): Nothing Associated Signs and Symptoms: Positive: Negative - Additional Pertinent History Primary Care Physician: [id number] - Allergy/Home Medications Allergies/Adverse Reactions: Allergies Allergy/AdvReac Type Severity Reaction Status Date / Time Penicillins Allergy Unknown Verified 06/19/19 09:42 Reaction Details Sulfa (Sulfonamide Allergy Unknown Verified 06/19/19 09:42 Antibiotics) Reaction Details electrodes on holter monitor Allergy See Comment Uncoded 06/19/19 09:42 Home Medications: Home Medications Cholecalciferol TAB* [Vitamin D TAB*] 1,000 unit PO DAILY 06/19/19 [History Confirmed 06/19/19] Clobetasol 0.05% OINT* 1 applic TOPICAL BID PRN 06/19/19 [History Confirmed 07/28] Gabapentin CAP(*) [Neurontin 300 CAP(*)] 300 mg PO TID 06/19/19 [History Confirmed 06/19/19] HYDROcodone/ACETAMIN 5-325 MG* [Nunica 5-325 TAB*] 1 tab PO Q4H PRN 06/19/19 [ History Confirmed 06/19/19] Nitroglycerin TAB 0.4 MG* 0.4 mg SL Q5M PRN 06/19/19 [History Confirmed 06/19/19 ] PMH/Surg Hx/FS Hx/Imm Hx Endocrine/Hematology History: Reports: Hx Anticoagulant Therapy - warfarin tx for afib, Hx Diabetes Denies: Hx Blood Disorders, Hx Blood Transfusions, Hx Bone Marrow Disease, Hx Systemic Lupus Erythematosus, Hx Sickle Cell Disease, Hx Thyroid Disease, Hx Anemia, Hx Unexplained Bleeding, Other Endocrine/Hematological Disorders Cardiovascular History: Reports: Hx Angina, 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, Hx Hypertension, Hx Peripheral Vascular Disease, Hx Valvular Heart Disease - aortic valve disorder, Other Cardiovascular Problems/Disorders - 4 CARDIAC STENTS PLACED 2013, Denies: Hx Aneurysm, Hx Angioplasty, Hx Auto Implanted Cardiovert Defib, Hx Cardiac Arrest, Hx Cardiomegaly, Hx Congenital Heart Disease, Hx Congestive Heart Failure, Hx Deep Vein Thrombosis, Hx Embolism, Hx Hypercholesterolemia, Hx Hypotension, Hx Pacemaker/ICD, Hx Rheumatic Fever, Hx Syncope Respiratory History: Reports: Hx Asthma, Hx Pneumonia - 3 yrs ago Denies: Hx Chronic Bronchitis, Hx Chronic Obstructive Pulmonary Disease (COPD ), Hx Cystic Fibrosis, Hx Lung Cancer, Hx Pleural Effusion, Hx Pulmonary Edema, Hx Pulmonary Embolism, Hx Seasonal Allergies, Hx Sleep Apnea, Other Respiratory Problems/Disorders GI History: Reports: Hx Ulcer Denies: Hx Cirrhosis, Hx Crohn's Disease, Hx Diverticulosis, Hx Gall Bladder Disease, Hx Gastroesophageal Reflux Disease, Hx Gastrointestinal Bleed, Hx Hiatal Hernia, Hx Irritable Bowel, Hx Jaundice, Hx Obstructive Bowel, Hx Ileostomy, Hx Pyloric Stenosis, Other GI Disorders History: Reports: Hx Kidney Stones - CURRENTLY AND HX. LT 02/14/19. Denies: Hx Acute Renal Failure, Hx Benign Prostatic Hyperplasia, Hx Chronic Renal Failure, Hx Dialysis, Hx Kidney Infection, Hx Renal Disease, Other Problems/Disorders Musculoskeletal History: Reports: Hx Arthritis - HANDS, LEGS, HIPS Denies: Hx Back Problems, Hx Bursitis, Hx Congenital Bone Abnormalities, Hx Fibromyalgia, Hx Gout, Hx Orthopedic Injury, Hx Osteoporosis, Hx Scoliosis, Hx Tendonitis, Other Musculoskeletal History Sensory History: Reports: Hx Cataracts - KIRBY, Hx Contacts or Glasses - took home Denies: Hx Eye Injury, Hx Eye Prosthesis, Hx Glaucoma, Hx Legally Blind, Hx Macular Degeneration, Hx Vision Problem, Hx Deafness, Hx Hearing Aid, Hx Hearing Problem, Other Sensory Impairments Opthamlomology History: Reports: Hx Cataracts - KIRBY, Hx Contacts or Glasses - took home Denies: Hx Eye Injury, Hx Eye Prosthesis, Hx Glaucoma, Hx Legally Blind, Hx Macular Degeneration, Hx Vision Problem, Other Sensory Impairments Neurological History: Reports: Hx Headaches, Hx Migraine - INFREQUENT, Hx Transient Ischemic Attacks (TIA) - 2 in past Denies: Hx Dementia, Hx Developmental Delay, Hx Nerve Disease, Hx Seizures, Hx Spinal Cord Injury, Other Neuro Impairments/Disorders Psychiatric History: Reports: Hx Anxiety, Hx Depression, Hx Inpatient Treatment , Hx Suicide Attempt Denies: Hx Attention Deficit Hyperactivity Disorder, Hx Eating Disorder, Hx Panic Disorder, Hx Post Traumatic Stress Disorder, Hx Community Mental Health Tx , Hx Schizophrenia, Hx Bipolar Disorder, Hx of Violent Episodes Against Others, Hx Substance Abuse, Other Psychiatric Issues/Disorders - Surgical History Surgery Procedure, Year, and Place: [place] [facility] [place], [place] [place] [facility] [place], [place] [facility] [place] [facility] [place] [facility], . RT HIP REPLACEMENT. right rotator cuff repair 2017 Hx Anesthesia Reactions: No - Immunization History Date of Tetanus Vaccine: unknown Infectious Disease History: No Infectious Disease History: Denies: Hx Clostridium Difficile, Hx Hepatitis, Hx Human Immunodeficiency Virus (HIV), Hx of Known/Suspected MRSA, Hx Shingles, Hx Tuberculosis, Hx Known/ Suspected VRE, Hx Known/Suspected VRSA, History Other Infectious Disease, Traveled Outside the in Last 30 Days - Family History Known Family History: Negative: Respiratory Disease - Social History Alcohol Use: Rare Alcohol Amount: 2-3 PER YEAR Hx Substance Use: No Substance Use Type: Reports: None Hx Tobacco Use: Yes Smoking Status (MU): Former Smoker Type: Cigarettes, Pipe Amount Used/How Often: PIPE, smoked for 12 years Have You Smoked in the Last Year: No Review of Systems Positive: Chest Pain Positive: Abdominal Pain All Other Systems Reviewed And Are Negative: Yes Physical Exam - Summary Physical Exam Summary: He is nontoxic in appearance with stable vitals. Triage Information Reviewed: Yes Vital Signs On Initial Exam: Initial Vitals Temp Pulse Resp BP Pulse Ox 98.6 F 66 16 144/83 98 06/19/19 15:41 06/19/19 15:41 06/19/19 15:41 06/19/19 15:41 06/19/19 15:41 Vital Signs Reviewed: Yes Appearance: Positive: Pain Distress Skin: Positive: Warm, Skin Color Reflects Adequate Perfusion, Dry ENT: Positive: Normal ENT inspection Neck: Positive: Supple Respiratory/Lung Sounds: Positive: Clear to Auscultation Cardiovascular: Positive: RRR Abdomen Description: Positive: Other: - He has some epigastric tenderness. Bowel Sounds: Positive: Present Musculoskeletal: Positive: Pain @ - He is basically tender to palpation anywhere over his anterior chest wall especially in the lower thoracic area. Neurological: Positive: Normal Procedures - Sedation Patient Received Moderate/Deep Sedation with Procedure: No Diagnostics - Vital Signs Vital Signs Temp Pulse Resp BP Pulse Ox 06/19/19 16:37 64 16 97 06/19/19 16:36 97 06/19/19 15:41 98.6 F 66 16 144/83 98 - Laboratory Lab Results: Lab Results 06/19/19 06/19/19 06/19/19 Range/Units 16:33 16:34 16:34 WBC 6.0 (3.5-10.8) 10^3/uL RBC 3.33 L (4.18-5.48) 10^6 /uL Hgb 9.6 L (14.0-18.0) g/dL Hct 29 L (42-52) % MCV 87 (80-94) fL MCH 29 (27-31) pg MCHC 33 (31-36) g/dL RDW 15 (10-15) % Plt Count 272 (150-450) 10^3/uL MPV 8.3 (7.4-10.4) fL Neut % (Auto) 55.0 % Lymph % (Auto) 26.4 % Geary % (Auto) 11.9 % Eos % (Auto) 6.0 % Baso % (Auto) 0.7 % Absolute Neuts (auto) 3.3 (1.5-7.7) 10^3/ul Absolute Lymphs (auto) 1.6 (1.0-4.8) 10^3/ul Absolute Monos (auto) 0.7 (0-0.8) 10^3/ul Absolute Eos (auto) 0.4 (0-0.6) 10^3/ul Absolute Basos (auto) 0.0 (0-0.2) 10^3/ul Absolute Nucleated RBC 0.0 10^3/ul Nucleated RBC % 0.1 INR (Anticoag Therapy) (0.82-1.09) Sodium 138 (135-145) mmol/L Potassium 4.3 (3.5-5.0) mmol/L Chloride 103 (101-111) mmol/L Carbon Dioxide 30 (22-32) mmol/L Anion Gap 5 (2-11) mmol/L BUN 20 (6-24) mg/dL Creatinine 1.11 (0.67-1.17) mg/dL Est GFR ( Amer) 78.1 (>60) Est GFR (Non-Af Amer) 64.6 (>60) BUN/Creatinine Ratio 18.0 (8-20) Glucose 211 H (70-100) mg/dL Lactic Acid 1.8 (0.5-2.0) mmol/L Calcium 8.9 (8.6-10.3) mg/dL Total Bilirubin 0.30 (0.2-1.0) mg/dL AST 15 (13-39) U/L ALT 13 (7-52) U/L Alkaline Phosphatase 106 H (34-104) U/L Troponin I 0.01 (<0.04) ng/mL B-Natriuretic Peptide (<=100) pg/mL Total Protein 6.8 (6.4-8.9) g/dL Albumin 3.4 (3.2-5.2) g/dL Globulin 3.4 (2-4) g/dL Albumin/Globulin Ratio 1.0 (1-3) 06/19/19 06/19/19 Range/Units 16:34 16:34 WBC (3.5-10.8) 10^3/uL RBC (4.18-5.48) 10^6 /uL Hgb (14.0-18.0) g/dL Hct (42-52) % MCV (80-94) fL MCH (27-31) pg MCHC (31-36) g/dL RDW (10-15) % Plt Count (150-450) 10^3/uL MPV (7.4-10.4) fL Neut % (Auto) % Lymph % (Auto) % Geary % (Auto) % Eos % (Auto) % Baso % (Auto) % Absolute Neuts (auto) (1.5-7.7) 10^3/ul Absolute Lymphs (auto) (1.0-4.8) 10^3/ul Absolute Monos (auto) (0-0.8) 10^3/ul Absolute Eos (auto) (0-0.6) 10^3/ul Absolute Basos (auto) (0-0.2) 10^3/ul Absolute Nucleated RBC 10^3/ul Nucleated RBC % INR (Anticoag Therapy) 1.52 H (0.82-1.09) Sodium (135-145) mmol/L Potassium (3.5-5.0) mmol/L Chloride (101-111) mmol/L Carbon Dioxide (22-32) mmol/L Anion Gap (2-11) mmol/L BUN (6-24) mg/dL Creatinine (0.67-1.17) mg/dL Est GFR ( Amer) (>60) Est GFR (Non-Af Amer) (>60) BUN/Creatinine Ratio (8-20) Glucose (70-100) mg/dL Lactic Acid (0.5-2.0) mmol/L Calcium (8.6-10.3) mg/dL Total Bilirubin (0.2-1.0) mg/dL AST (13-39) U/L ALT (7-52) U/L Alkaline Phosphatase (34-104) U/L Troponin I (<0.04) ng/mL B-Natriuretic Peptide 367 H (<=100) pg/mL Total Protein (6.4-8.9) g/dL Albumin (3.2-5.2) g/dL Globulin (2-4) g/dL Albumin/Globulin Ratio (1-3) Result Diagrams: 06/19/19 16:34 06/19/19 16:34 Lab Statement: Any lab studies that have been ordered have been reviewed, and results considered in the medical decision making process. - EKG 15:50: NSR, NL [place], No Acute Changes, Unchanged from 02/14/19 Cardiac Rate: NL EKG Rhythm: Sinus Rhythm ST Segment: Non-Specific Ectopy: None EKG Comparison: No Significant Change Chest Pain Course/Dx - Course Course Of Treatment: Mr. Gregory has had a negative W/U so far. His CTA result is pending and I would expect him to be discharged if that is negative. - Diagnoses Provider Diagnoses: Chest wall pain Discharge ED - Sign-Out/Discharge Documenting (check all that apply): Sign-Out Patient Signing out patient TO: Charlene Chicas Receiving patient FROM: Maxwell Quintero - Discharge Plan Condition: Stable Disposition: HOME Patient Education Materials: Chest Pain (ED), Vertebral Compression Fracture ( ED) Referrals: Puma Nixon MD [Primary Care Provider] - Additional Instructions: Return to ED with any new or worsening symptoms. - Billing Disposition and Condition Condition: STABLE Disposition: Home - Attestation Statements Document Initiated by Scribe: No
[2019-06-19] MEDS ORDERED: Iodixanol* (CONTRAST) 320 MG/ML 100 ML SDV IV ONE (17:35)
--- NOTE | 2019-06-19 20:57 | ED ---
Progress - Progress Note Progress Note: Receiving sign-out from Dr. Quintero at shift change 1900 pending CTA Chest and 2nd Troponin. 2nd Troponin was negative. CTA Chest Impression: 1. Moderate and regular atherosclerosis. Mild aneurysmal dilatation of the ascending thoracic aorta 4.6 cm in diameter without dissection or leak. 2. No pulmonary embolus. 3. No consolidation, effusion, or edema. 4. Chronic appearing compression fractures T8, T7, and T4. A plan for discharge was discussed with the patient and he was agreeable with this plan. Course/Dx - Course Course Of Treatment: Receiving sign-out from Dr. Quintero at shift change 1900 pending CTA Chest and 2nd Troponin. 2nd Troponin was negative. CTA Chest Impression: 1. Moderate and regular atherosclerosis. Mild aneurysmal dilatation of the ascending thoracic aorta 4.6 cm in diameter without dissection or leak. 2. No pulmonary embolus. 3. No consolidation, effusion, or edema. 4. Chronic appearing compression fractures T8, T7, and T4. A plan for discharge was discussed with the patient and he was agreeable with this plan. - Diagnoses Provider Diagnoses: Chest wall pain Discharge ED - Sign-Out/Discharge Documenting (check all that apply): Patient Departure - Discharge Receiving patient FROM: Maxwell Quintero - Discharge Plan Condition: Stable Disposition: HOME Patient Education Materials: Chest Pain (ED), Vertebral Compression Fracture ( ED) Referrals: Puma Nixon MD [Primary Care Provider] - Additional Instructions: Return to ED with any new or worsening symptoms. - Billing Disposition and Condition Condition: STABLE Disposition: Home - Attestation Statements Document Initiated by Maikol: Yes Documenting Scribe: Adama Lynch Provider For Whom Maikol is Documenting (Include Credential): Charlene Chicas MD Scribe Attestation: Adama Morris, scribed for Charlene Chicas MD on 06/19/19 at 2113. Scribe Documentation Reviewed: Yes Provider Attestation: The documentation as recorded by the Adama kiser accurately reflects the service I personally performed and the decisions made by me, Charlene Chicas MD Status of Scribe Document: Viewed
[2019-06-19 21:29] VITALS: BP 161/95
== END 2019-06-19 21:29 | disposition home or self-care (01) ==
LOC: ED 15:38
DX: R07.89 Other chest pain (principal); Z79.899 Other long term (current) drug therapy; Z79.01 Long term (current) use of anticoagulants; I25.10 Atherosclerotic heart disease of native coronary artery without angina pectoris; Z87.442 Personal history of urinary calculi; Z87.891 Personal history of nicotine dependence; R94.31 Abnormal electrocardiogram [ECG] [EKG]
CPT/HCPCS: 36415; 71275; 74174; 80053; 83605; 83880; 84484; 85025; 85610; 93005; 99282; Q9967

== ENCOUNTER 2021-08-23 11:32 | Inpatient (IN) ==
[2021-08-23 12:06] LABS: ABS Lymphocytes 1.2 10^3/ul (1.0-4.8); ABS Monocytes 0.7 10^3/ul (0-0.8); ABS Neutrophils 6.2 10^3/ul (1.5-7.7); Eosinophil % 0.5 %; Hematocrit 51 % (42-52); Hemoglobin 16.9 g/dL (14.0-18.0); Lymphocyte % 14.3 %; Mean Corpuscular HGB Conc 33 g/dL (31-36); Mean Corpuscular Hemoglobin 32 pg (27-31); Mean Corpuscular Volume 96 fL (80-94); Nucleated Red Blood Cells % 0.1; Platelet Count 236 10^3/uL (150-450); Red Blood Count 5.27 10^6 /uL (4.18-5.48); Red Cell Distribution Width 14 % (10-15); White Blood Count 8.1 10^3/uL (3.5-10.8)
[2021-08-23 12:13] LABS: INR 1.45 (0.86-1.15)
[2021-08-23 12:22] LABS: Albumin 4.4 g/dL (3.2-5.2); Albumin/Globulin Ratio 1.2 (1-3); Calcium 9.1 mg/dL (8.6-10.3); Globulin 3.7 g/dL (2-4); Total Protein 8.1 g/dL (6.4-8.9); eGFR CKD-EPI 71.5 (>60)
[2021-08-23 12:24] LABS: Troponin I 0.01 ng/mL (<0.03)
[2021-08-23] MEDS ORDERED: Lactated Ringers 1000 ml BAG 1,000 ML IV ONE (12:36)
[2021-08-23] MEDS ORDERED: Morphine 4 MG/ML VIAL (1 ml) IV ONE ×2 (12:36→18:12)
[2021-08-23] MEDS ORDERED: Famotidine IV 10 MG/ML 2 ml VIAL (20 mg) IV SLOW PU ONE (12:53)
[2021-08-23] MEDS ORDERED: Ondansetron 4 mg VIAL 2 MG/ML 2 ml VIAL IV ONE ×2 (13:07→18:12)
[2021-08-23 13:37] LABS: Potassium 4.2 mmol/L (3.5-5.0)
[2021-08-23] MEDS ORDERED: Sucralfate 1 gm SUSP 1 GM/10 ML UDC PO ONE (16:36)
[2021-08-23] MEDS ORDERED: cefTRIAXone 1 gm/50 mL NS BAG 1 GM/50 ML BAG IVPB ONE (18:07)
[2021-08-24] MEDS: Acetaminophen IV 1 GM/100ML 100 ML IV PRN ×2 (05:54→15:37)
[2021-08-24] MEDS ORDERED: Zosyn per Pharmacy NOTE FOLLOW UP SCH (07:00)
[2021-08-24] MEDS ORDERED: Piperacillin/Tazobac ADVAN 3.375 GM in NS 0.9% 100 ml BAG 100 ML IV ONE (07:00)
[2021-08-24 07:03] LABS: ABS Eosinophils 0.2 10^3/ul (0-0.6); ABS Lymphocytes 1.4 10^3/ul (1.0-4.8); ABS Monocytes 0.8 10^3/ul (0-0.8); Eosinophil % 2.6 %; Hematocrit 48 % (42-52); Hemoglobin 16.2 g/dL (14.0-18.0); Lymphocyte % 21.6 %; Mean Corpuscular HGB Conc 34 g/dL (31-36); Mean Corpuscular Hemoglobin 33 pg (27-31); Mean Corpuscular Volume 97 fL (80-94); Mean Platelet Volume 8.6 fL (7.4-10.4); Platelet Count 198 10^3/uL (150-450); Red Blood Count 4.95 10^6 /uL (4.18-5.48); Red Cell Distribution Width 14 % (10-15); White Blood Count 6.4 10^3/uL (3.5-10.8)
[2021-08-24 07:25] LABS: Albumin 3.9 g/dL (3.2-5.2); Albumin/Globulin Ratio 1.2 (1-3); Calcium 8.5 mg/dL (8.6-10.3); Globulin 3.2 g/dL (2-4); Potassium 4.5 mmol/L (3.5-5.0); Total Bilirubin 0.8 mg/dL (0.2-1.0); Total Protein 7.1 g/dL (6.4-8.9); eGFR CKD-EPI 51.8 (>60)
[2021-08-24] MEDS ORDERED: Dextrose 50% Syringe 50 ml 25 GM/50 ML SYRINGE IV PUSH PRN (08:51)
[2021-08-24] MEDS ORDERED: Umeclidin/Vilant 62.5 MDI 62.5/25 mcg 14 INH ELLIPTA DEVICE INH SCH (09:00)
[2021-08-24] MEDS ORDERED: ZOSYN 3.375 GM Q8H per EXTENDED INFUSION IV SCH (11:00)
[2021-08-24] MEDS ORDERED: Ondansetron 4 mg VIAL 2 MG/ML 2 ml VIAL IV PRN (11:35)
[2021-08-24] MEDS: Tiotropium Brom/Olodaterol MDI INH SCH (12:23)
[2021-08-24] MEDS: Morphine 2 MG/ML SYRINGE IV PRN (15:36)
[2021-08-24] MEDS: ZOSYN 3.375 GM Q8H per EXTENDED INFUSION IV SCH (19:51)
[2021-08-25] MEDS: Morphine 2 MG/ML SYRINGE IV PRN ×4 (03:35→19:45)
[2021-08-25] MEDS: ZOSYN 3.375 GM Q8H per EXTENDED INFUSION IV SCH ×3 (03:36→19:46)
[2021-08-25 05:04] LABS: ABS Eosinophils 0.2 10^3/ul (0-0.6); ABS Lymphocytes 1.2 10^3/ul (1.0-4.8); ABS Monocytes 0.6 10^3/ul (0-0.8); ABS Neutrophils 3.8 10^3/ul (1.5-7.7); Eosinophil % 3.5 %; Hematocrit 48 % (42-52); Hemoglobin 16.2 g/dL (14.0-18.0); Lymphocyte % 20.9 %; Mean Corpuscular HGB Conc 34 g/dL (31-36); Mean Corpuscular Hemoglobin 32 pg (27-31); Mean Corpuscular Volume 96 fL (80-94); Mean Platelet Volume 8.8 fL (7.4-10.4); Nucleated Red Blood Cells % 0.1; Platelet Count 185 10^3/uL (150-450); Red Blood Count 5.02 10^6 /uL (4.18-5.48); Red Cell Distribution Width 15 % (10-15); White Blood Count 5.9 10^3/uL (3.5-10.8)
[2021-08-25 05:08] LABS: INR 1.27 (0.86-1.15)
[2021-08-25 05:24] LABS: Albumin 3.7 g/dL (3.2-5.2); Albumin/Globulin Ratio 1.2 (1-3); Calcium 8.2 mg/dL (8.6-10.3); Globulin 3.2 g/dL (2-4); Potassium 3.7 mmol/L (3.5-5.0); Total Bilirubin 0.9 mg/dL (0.2-1.0); Total Protein 6.9 g/dL (6.4-8.9); eGFR CKD-EPI 57.6 (>60)
[2021-08-25] MEDS ORDERED: Lactated Ringers 1000 ml BAG 1,000 ML IV SCH (06:00)
[2021-08-25] MEDS: Tiotropium Brom/Olodaterol MDI INH SCH (08:49)
[2021-08-25] MEDS ORDERED: Lidocaine 1% w EPI 1:100,000 MDV 20 ML VIAL ONE (10:09)
[2021-08-25] MEDS ORDERED: Bupivacaine 0.25% SDV 30 ML ONE (10:09)
[2021-08-25] MEDS ORDERED: fentaNYL 100 mcg/2 ml 50 MCG/ML VIAL ONE (10:43)
[2021-08-25] MEDS ORDERED: Rocuronium 50 mg VIAL 10 mg/ml 5 ml VIAL (50 mg) ONE (10:43)
[2021-08-25] MEDS ORDERED: Midazolam 5 mg/5 ml VIAL 1 mg/ml 5 ml VIAL (5 mg) ONE (10:43)
[2021-08-25] MEDS ORDERED: Phenylephrine IV 10 MG/ML 1 ml VIAL ONE (10:52)
[2021-08-25] MEDS ORDERED: Propofol 10 MG/ML 20 ML BTL ONE (10:52)
[2021-08-25] MEDS ORDERED: Lidocaine 2% PF 5 ML VIAL ONE (10:52)
[2021-08-25] MEDS ORDERED: Succinylcholine 200 mg VIAL 20 mg/ml 10 ml VIAL (200 mg) ONE (10:52)
[2021-08-25] MEDS ORDERED: Phenylephrine 40 mcg/mL 10mL (400mcg) SYRINGE ONE (10:52)
[2021-08-25] MEDS ORDERED: Piperacillin/Tazobac 3.375 GM BAG ONE (11:04)
[2021-08-25] MEDS ORDERED: Ondansetron 4 mg VIAL 2 MG/ML 2 ml VIAL ONE (12:27)
[2021-08-25] MEDS ORDERED: Dexamethasone IV 4 MG/ML VIAL 1 ml VIAL ONE (12:27)
[2021-08-25] MEDS ORDERED: EPHEDrine (Pressors) 50 MG/ML VIAL ONE (13:07)
[2021-08-25] MEDS ORDERED: Naloxone 0.4 mg VIAL 0.4 mg/ml 1 ml VIAL IV PRN (13:09)
[2021-08-25] MEDS ORDERED: DiMENhydriNATE IV 50 mg/ml 1 ml VIAL IV PUSH PRN (13:09)
[2021-08-25] MEDS ORDERED: Acetaminophen IV 1 GM/100ML 100 ML IV ONE ×2 (13:09→13:55)
[2021-08-25] MEDS ORDERED: HYDROmorphone 0.5 MG/0.5 ML SYRINGE ONE (13:18)
[2021-08-25] MEDS ORDERED: HYDROmorphone 1 MG/1 ML SYRINGE ONE (14:19)
[2021-08-25] MEDS: HYDROmorphone 1 MG/1 ML SYRINGE IV PRN ×5 (14:22→14:55)
[2021-08-25] MEDS: NS 0.9% 1000 ml BAG 1,000 ML IV SCH (16:39)
[2021-08-26] MEDS: ZOSYN 3.375 GM Q8H per EXTENDED INFUSION IV SCH ×2 (03:28→12:08)
[2021-08-26] MEDS: NS 0.9% 1000 ml BAG 1,000 ML IV SCH (05:54)
[2021-08-26] MEDS: Morphine 2 MG/ML SYRINGE IV PRN (05:54)
[2021-08-26 05:57] LABS: Hematocrit 46 % (42-52); Hemoglobin 15.1 g/dL (14.0-18.0)
[2021-08-26 06:11] LABS: Calcium 7.6 mg/dL (8.6-10.3); Potassium 3.9 mmol/L (3.5-5.0); eGFR CKD-EPI 62.3 (>60)
[2021-08-26] MEDS: Tiotropium Brom/Olodaterol MDI INH SCH (08:37)
[2021-08-26] MEDS: oxyCODONE/Acetamin 5/325 mg TAB PO PRN ×2 (12:08→21:59)
[2021-08-26] MEDS: Amoxicillin/Clavul 875/125 TAB (Augmentin 875 tab) PO SCH (21:59)
[2021-08-27 06:26] LABS: ABS Eosinophils 0.1 10^3/ul (0-0.6); ABS Monocytes 0.9 10^3/ul (0-0.8); ABS Neutrophils 6.4 10^3/ul (1.5-7.7); Eosinophil % 0.9 %; Hematocrit 45 % (42-52); Hemoglobin 15.1 g/dL (14.0-18.0); Lymphocyte % 12.2 %; Mean Corpuscular HGB Conc 33 g/dL (31-36); Mean Corpuscular Hemoglobin 33 pg (27-31); Mean Corpuscular Volume 98 fL (80-94); Mean Platelet Volume 8.9 fL (7.4-10.4); Platelet Count 161 10^3/uL (150-450); Red Blood Count 4.63 10^6 /uL (4.18-5.48); Red Cell Distribution Width 15 % (10-15); White Blood Count 8.4 10^3/uL (3.5-10.8)
[2021-08-27 06:34] LABS: Activated Partial Thrombo Time 28.5 seconds (26.0-38.0); INR 1.37 (0.86-1.15)
[2021-08-27 06:46] LABS: Albumin 3.3 g/dL (3.2-5.2); Albumin/Globulin Ratio 1.1 (1-3); Calcium 7.7 mg/dL (8.6-10.3); Globulin 3.1 g/dL (2-4); Magnesium 1.5 mg/dL (1.9-2.7); Phosphorus 1.7 mg/dL (2.5-5.0); Potassium 3.5 mmol/L (3.5-5.0); Total Bilirubin 0.9 mg/dL (0.2-1.0); Total Protein 6.4 g/dL (6.4-8.9); eGFR CKD-EPI 76.6 (>60)
[2021-08-27] MEDS ORDERED: Magnesium Sulfate IV 3 GM in NS 0.9% 100 ml BAG 100 ML IVPB ONE (08:21)
[2021-08-27] MEDS ORDERED: Sodium Phosphate IV 30 MMOLE in NS 0.9% 250 ml 250 ML IV ONE (08:22)
[2021-08-27] MEDS: Amoxicillin/Clavul 875/125 TAB (Augmentin 875 tab) PO SCH ×2 (09:01→17:04)
[2021-08-27] MEDS: oxyCODONE/Acetamin 5/325 mg TAB PO PRN (09:02)
[2021-08-27] MEDS: Tiotropium Brom/Olodaterol MDI INH SCH (09:10)
[2021-08-27 16:17] VITALS: BP 144/94
== END 2021-08-27 17:25 | disposition home or self-care (01) | DRG 418 ==
LOC: ED 11:32 → EDHOLD 21:23 → SUATTDRO 21:23 → INTOOBSV 21:23 → SUATTDRO 22:00 → SSU 08-24 00:22
PROVIDERS: ADMIT Internal Medicine; ATTEND Internal Medicine

== ENCOUNTER 2023-09-03 16:13 | Inpatient (IN) ==
[2023-09-03] MEDS ORDERED: NS 0.9% 500 ml BAG 500 ML IV ONE (16:59)
[2023-09-03] MEDS ORDERED: Cefepime 1 GM in Dextrose 1 GM/50 ML BAG IV ONE (17:09)
[2023-09-03] MEDS ORDERED: Vancomycin 1,000 MG in NS 0.9% 250 ml 250 ML IVPB ONE (17:09)
[2023-09-03 17:19] LABS: ABS Lymphocytes 0.6 10^3/uL (1.0-4.8); ABS Monocytes 0.5 10^3/uL (0.0-1.1); ABS Neutrophils 3.7 10^3/uL (1.5-7.6); ABS Nucleated RBC 0.01 10^3/ul; Eosinophil % 0.7 %; Hematocrit 42.6 % (38-53); Hemoglobin 14.3 g/dL (13.2-16.3); Lymphocyte % 12.9 %; Mean Corpuscular Hemoglobin 33.3 pg (27-33); Mean Corpuscular Hgb Conc 33.7 g/dL (31-36); Mean Corpuscular Volume 98.9 fL (80-97); Mean Platelet Volume 7.9 fL (7.5-11.2); Nucleated Red Blood Cells % 0.2 %/100WBC (0.0-0.8); Platelet Count 156 10^3/uL (150-450); Red Blood Count 4.31 10^6/uL (4.06-5.63); Red Cell Distribution Width 16.4 % (12-17); White Blood Count 4.8 10^3/uL (3.6-10.2)
[2023-09-03 17:27] LABS: INR 1.36 (0.83-1.13)
[2023-09-03] MEDS ORDERED: Albuterol/Ipratropium NEB.SOL (2.5/0.5 MG) 3 ML NEB.SOLN ONE (17:30)
[2023-09-03 17:37] LABS: ALT 77 U/L (7-52); Albumin/Globulin Ratio 1.1 (1-3); Blood Urea Nitrogen 24 mg/dL (6-24); CO2 Carbon Dioxide 30 mmol/L (22-32); Calcium 9.7 mg/dL (8.6-10.3); Chloride 97 mmol/L (101-111); Creatinine, Serum 1.21 mg/dL (0.67-1.17); Globulin 3.7 g/dL (2-4); Glucose 121 mg/dL (70-100); Sodium 132 mmol/L (135-145); Total Bilirubin 0.8 mg/dL (0.2-1.0); Total Protein 7.7 g/dL (6.4-8.9); eGFR CKD-EPI 60.5 (>60)
[2023-09-03 17:48] LABS: PCO2 Arterial 44 mmHg (35-45); PO2 Arterial 81 mmHg (80-100)
[2023-09-03 17:59] LABS: High Sens Troponin Baseline 11 pg/mL (<20)
[2023-09-03 18:03] LABS: Alkaline Phosphatase 92 U/L (35-149); Anion Gap 5 mmol/L (2-16)
[2023-09-03] MEDS ORDERED: Albuterol/Ipratropium NEB.SOL (2.5/0.5 MG) 3 ML NEB.SOLN INH ONE (18:43)
[2023-09-03] MEDS ORDERED: methylPREDNISolone SOD SUCC 125 mg 2 ML VIAL IV ONE (18:44)
[2023-09-03 18:49] LABS: Potassium Redraw 4.8 mmol/L (3.5-5.0)
[2023-09-03] MEDS ORDERED: Albuterol 2.5mg/3 ml (0.083%) NEB.SOLN INH PRN (20:07)
[2023-09-03] MEDS ORDERED: Ondansetron 4 mg VIAL 2 MG/ML 2 ml VIAL IV PRN (20:07)
[2023-09-03] MEDS ORDERED: HYDROcodone/ACET. 7.5/325 LIQ 15 ML UDC PO PRN (20:12)
[2023-09-03] MEDS ORDERED: methylPREDNISolone SOD SUCC 125 mg 2 ML VIAL IM SCH (21:00)
[2023-09-03] MEDS ORDERED: Dextrose 50% Syringe 50 ml 25 GM/50 ML SYRINGE IV PUSH PRN (21:36)
[2023-09-03] MEDS: DOXYcycline 100 MG in NS 0.9% 250 ml 250 ML IVPB SCH (23:04)
[2023-09-03] MEDS: methylPREDNISolone SOD SUCC 125 mg 2 ML VIAL IV SCH (23:04)
[2023-09-03] MEDS: NF: Potassium Citrate 10 meq TAB (NF) PO SCH (23:05)
[2023-09-03] MEDS: Insulin GLARGINE 100 un/ml 10 ml VIAL SUBCUT SCH (23:48)
[2023-09-03] MEDS: Cholecalciferol (VIT D3) 1,000 unit TAB PO SCH (23:53)
[2023-09-04] MEDS: methylPREDNISolone SOD SUCC 125 mg 2 ML VIAL IV SCH ×3 (05:44→21:02)
[2023-09-04 07:08] LABS: ABS Lymphocytes 0.4 10^3/uL (1.0-4.8); ABS Monocytes 0.2 10^3/uL (0.0-1.1); ABS Neutrophils 5.1 10^3/uL (1.5-7.6); Hematocrit 42.2 % (38-53); Lymphocyte % 7.8 %; Mean Corpuscular Hemoglobin 33.2 pg (27-33); Mean Corpuscular Hgb Conc 33.1 g/dL (31-36); Mean Corpuscular Volume 100.2 fL (80-97); Mean Platelet Volume 7.7 fL (7.5-11.2); Platelet Count 125 10^3/uL (150-450); Red Blood Count 4.21 10^6/uL (4.06-5.63); Red Cell Distribution Width 16.6 % (12-17); White Blood Count 5.7 10^3/uL (3.6-10.2)
[2023-09-04 07:27] LABS: Calcium 9.5 mg/dL (8.6-10.3); Creatinine, Serum 1.47 mg/dL (0.67-1.17); Magnesium 1.7 mg/dL (1.9-2.7); Phosphorus 3.4 mg/dL (2.5-5.0); Potassium 4.8 mmol/L (3.5-5.0); eGFR CKD-EPI 47.9 (>60)
[2023-09-04] MEDS: Albuterol/Ipratropium NEB.SOL (2.5/0.5 MG) 3 ML NEB.SOLN INH SCH ×4 (08:03→20:27)
[2023-09-04] MEDS: Aspirin EC 81 mg TAB.EC (enteric coated) PO SCH (08:52)
[2023-09-04] MEDS: NF: Potassium Citrate 10 meq TAB (NF) PO SCH ×2 (08:58→21:04)
[2023-09-04] MEDS: DOXYcycline 100 MG in NS 0.9% 250 ml 250 ML IVPB SCH ×2 (09:15→20:55)
[2023-09-04 12:03] LABS: PCO2 Arterial 44 mmHg (35-45); PO2 Arterial 63 mmHg (80-100)
[2023-09-04] MEDS ORDERED: Acetaminophen IV 1 GM/100ML 1,000 MG/100 ML BAG IV PRN (13:21)
[2023-09-04] MEDS: Cholecalciferol (VIT D3) 1,000 unit TAB PO SCH (20:27)
[2023-09-04] MEDS: Insulin GLARGINE 100 un/ml 10 ml VIAL SUBCUT SCH (20:47)
[2023-09-05 04:16] LABS: Calcium 9.4 mg/dL (8.6-10.3); Creatinine, Serum 1.13 mg/dL (0.67-1.17); Magnesium 1.7 mg/dL (1.9-2.7); Phosphorus 3.4 mg/dL (2.5-5.0); Potassium 4.6 mmol/L (3.5-5.0); eGFR CKD-EPI 65.7 (>60)
[2023-09-05 04:33] LABS: ABS Lymphocytes 0.7 10^3/uL (1.0-4.8); ABS Monocytes 0.5 10^3/uL (0.0-1.1); ABS Nucleated RBC 0.01 10^3/ul; Hematocrit 39.7 % (38-53); Hemoglobin 13.1 g/dL (13.2-16.3); Lymphocyte % 5.1 %; Mean Corpuscular Hemoglobin 32.8 pg (27-33); Mean Corpuscular Hgb Conc 32.9 g/dL (31-36); Mean Corpuscular Volume 99.7 fL (80-97); Mean Platelet Volume 8.2 fL (7.5-11.2); Nucleated Red Blood Cells % 0.1 %/100WBC (0.0-0.8); Platelet Count 142 10^3/uL (150-450); Red Blood Count 3.98 10^6/uL (4.06-5.63); Red Cell Distribution Width 16.4 % (12-17); White Blood Count 14.2 10^3/uL (3.6-10.2)
[2023-09-05] MEDS ORDERED: Magnesium Sulfate 2 gm BAG 2 GM/50 ML BAG IVPB ONE (06:02)
[2023-09-05] MEDS: methylPREDNISolone SOD SUCC 125 mg 2 ML VIAL IV SCH ×3 (06:11→23:03)
[2023-09-05] MEDS: Albuterol/Ipratropium NEB.SOL (2.5/0.5 MG) 3 ML NEB.SOLN INH SCH ×3 (07:29→20:28)
[2023-09-05] MEDS ORDERED: Sulfur Hexaflouride MICROSPHR 25 MG VIAL ONE (08:32)
[2023-09-05] MEDS: DOXYcycline 100 MG in NS 0.9% 250 ml 250 ML IVPB SCH ×2 (09:03→20:44)
[2023-09-05] MEDS: Aspirin EC 81 mg TAB.EC (enteric coated) PO SCH (09:22)
[2023-09-05] MEDS: NF: Potassium Citrate 10 meq TAB (NF) PO SCH (09:22)
[2023-09-05] MEDS ORDERED: Furosemide 20 mg/2 ml IV VIAL IV ONE (16:17)
[2023-09-05] MEDS: Cholecalciferol (VIT D3) 1,000 unit TAB PO SCH (20:19)
[2023-09-05] MEDS: POTASSIUM CITRATE 10 MEQ PO SCH (20:19)
[2023-09-05] MEDS: Insulin GLARGINE 100 un/ml 10 ml VIAL SUBCUT SCH (20:45)
[2023-09-06 05:42] LABS: Hematocrit 38.3 % (38-53); Hemoglobin 12.8 g/dL (13.2-16.3); Mean Corpuscular Hemoglobin 33.3 pg (27-33); Mean Corpuscular Hgb Conc 33.5 g/dL (31-36); Mean Corpuscular Volume 99.3 fL (80-97); Red Blood Count 3.86 10^6/uL (4.06-5.63); Red Cell Distribution Width 16.3 % (12-17); White Blood Count 7.8 10^3/uL (3.6-10.2)
[2023-09-06] MEDS: methylPREDNISolone SOD SUCC 125 mg 2 ML VIAL IV SCH (05:51)
[2023-09-06 06:51] LABS: ABS Lymphocytes 0.7 10^3/uL (1.0-4.8); ABS Monocytes 0.3 10^3/uL (0.0-1.1); ABS Neutrophils 6.7 10^3/uL (1.5-7.6); ABS Nucleated RBC 0.02 10^3/ul; Anisocytosis 1+; Lymphocyte % 9.4 %; Nucleated Red Blood Cells % 0.2 %/100WBC (0.0-0.8)
[2023-09-06 07:07] LABS: Calcium 9.4 mg/dL (8.6-10.3); Creatinine, Serum 1.17 mg/dL (0.67-1.17); Potassium 4.1 mmol/L (3.5-5.0)
[2023-09-06 07:09] LABS: Magnesium 1.9 mg/dL (1.9-2.7)
[2023-09-06] MEDS: Albuterol/Ipratropium NEB.SOL (2.5/0.5 MG) 3 ML NEB.SOLN INH SCH ×3 (07:49→20:29)
[2023-09-06] MEDS: Aspirin EC 81 mg TAB.EC (enteric coated) PO SCH (08:17)
[2023-09-06] MEDS: POTASSIUM CITRATE 10 MEQ PO SCH ×2 (08:17→22:35)
[2023-09-06] MEDS: DOXYcycline 100 MG in NS 0.9% 250 ml 250 ML IVPB SCH ×2 (08:26→22:26)
[2023-09-06] MEDS ORDERED: Furosemide 20 mg/2 ml IV VIAL IV ONE (10:52)
[2023-09-06] MEDS: methylPREDNISolone SOD SUCC 40 mg/ml 1 ml VIAL IV SCH ×2 (14:21→22:33)
[2023-09-06] MEDS: Cholecalciferol (VIT D3) 1,000 unit TAB PO SCH (22:31)
[2023-09-06] MEDS: Insulin GLARGINE 100 un/ml 10 ml VIAL SUBCUT SCH (22:34)
[2023-09-07] MEDS: methylPREDNISolone SOD SUCC 40 mg/ml 1 ml VIAL IV SCH ×3 (05:54→22:23)
[2023-09-07] MEDS: Albuterol/Ipratropium NEB.SOL (2.5/0.5 MG) 3 ML NEB.SOLN INH SCH ×3 (08:50→21:09)
[2023-09-07] MEDS ORDERED: Acetaminophen IV 1 GM/100ML 1,000 MG/100 ML BAG IV PRN (09:22)
[2023-09-07] MEDS: Aspirin EC 81 mg TAB.EC (enteric coated) PO SCH (09:27)
[2023-09-07] MEDS: POTASSIUM CITRATE 10 MEQ PO SCH ×2 (09:27→22:28)
[2023-09-07] MEDS: DOXYcycline 100 MG in NS 0.9% 250 ml 250 ML IVPB SCH ×2 (09:32→22:17)
[2023-09-07] MEDS: Cholecalciferol (VIT D3) 1,000 unit TAB PO SCH (22:23)
[2023-09-07] MEDS: Insulin GLARGINE 100 un/ml 10 ml VIAL SUBCUT SCH (22:25)
[2023-09-08] MEDS: methylPREDNISolone SOD SUCC 40 mg/ml 1 ml VIAL IV SCH (05:34)
[2023-09-08] MEDS: Albuterol/Ipratropium NEB.SOL (2.5/0.5 MG) 3 ML NEB.SOLN INH SCH (07:32)
[2023-09-08 08:20] LABS: Albumin 3.4 g/dL (3.2-5.2); Albumin/Globulin Ratio 0.9 (1-3); Calcium 9.7 mg/dL (8.6-10.3); Creatinine, Serum 1.13 mg/dL (0.67-1.17); Globulin 3.6 g/dL (2-4); Potassium 4.8 mmol/L (3.5-5.0); Total Bilirubin 0.8 mg/dL (0.2-1.0); eGFR CKD-EPI 65.7 (>60)
[2023-09-08] MEDS: DOXYcycline 100 MG in NS 0.9% 250 ml 250 ML IVPB SCH (09:05)
[2023-09-08] MEDS: Aspirin EC 81 mg TAB.EC (enteric coated) PO SCH (09:07)
[2023-09-08] MEDS: POTASSIUM CITRATE 10 MEQ PO SCH (09:07)
[2023-09-08 12:04] VITALS: BP 158/87
== END 2023-09-08 12:15 | disposition home or self-care (01) | DRG 189 ==
LOC: ED 16:13 → EDHOLD 20:07 → ICU 09-04 14:44 → MEDTELE 09-06 10:49
PROVIDERS: ADMIT Internal Medicine Pulmonary Disease; ATTEND Internal Medicine Hematology & Oncology

== ENCOUNTER 2024-05-06 10:12 | Inpatient (IN) ==
[2024-05-06 11:32] LABS: Hemoglobin 14.5 g/dL (13.2-16.3); Mean Corpuscular Hemoglobin 34.5 pg (27-33); Mean Corpuscular Hgb Conc 33.8 g/dL (31-36); Mean Corpuscular Volume 101.9 fL (80-97); Mean Platelet Volume 8.2 fL (7.5-11.2); Platelet Count 123 10^3/uL (150-450); Red Blood Count 4.22 10^6/uL (4.06-5.63); Red Cell Distribution Width 15.3 % (12-17); White Blood Count 3.2 10^3/uL (3.6-10.2)
[2024-05-06 11:52] LABS: Activated Partial Thrombo Time 37.9 seconds (26.0-38.0); INR 2.02 (0.85-1.14)
[2024-05-06 11:59] LABS: Albumin 3.4 g/dL (3.2-5.2); Albumin/Globulin Ratio 1.3 (1-3); C Reactive Protein 29.1 mg/L (<8.01); Calcium 8.6 mg/dL (8.6-10.3); Creatinine, Serum 1.35 mg/dL (0.67-1.17); Globulin 2.7 g/dL (2-4); Potassium 4.5 mmol/L (3.5-5.0); Total Bilirubin 0.6 mg/dL (0.2-1.0); Total Protein 6.1 g/dL (6.4-8.9); eGFR CKD-EPI 53.1 (>60)
[2024-05-06 13:02] LABS: ABS Lymphocytes 0.6 10^3/uL (1.0-4.8); ABS Monocytes 0.7 10^3/uL (0.0-1.1); ABS Neutrophils 1.9 10^3/uL (1.5-7.6); Eosinophil % 1.4 %; Lymphocyte % 17.4 %
[2024-05-06 13:23] LABS: High Sensitivity Troponin 1 Hr 7 pg/mL (<20)
[2024-05-06 13:53] LABS: Urine Appearance Clear; Urine Bilirubin Negative (Negative); Urine Blood Negative (Negative); Urine Color Yellow; Urine Glucose Negative (Negative); Urine Ketones Negative (Negative); Urine Nitrite Negative (Negative); Urine Protein Negative (Negative); Urine Specific Gravity 1.019 (1.002-1.030); Urine Urobilinogen Negative (Negative)
[2024-05-06 14:08] LABS: Urine Bacteria Absent /HPF (Absent); Urine Red Blood Cell Trace(0-2/hpf) /HPF (0-Trace); Urine Squamous Epithelial Cell Present /HPF (Absent); Urine White Blood Cell 1+(6-10/hpf) /HPF (0-Trace)
[2024-05-06] MEDS: Iodixanol (CONTRAST) 320 MG/ML 100 ML SDV IV ONE (14:14)
[2024-05-06] MEDS: Dexamethasone IV 4 MG/ML VIAL 1 ml VIAL IV SLOW PU ONE (14:54)
[2024-05-06] MEDS: Lactated Ringers 1000 ml BAG 1,000 ML IV ONE (14:57)
[2024-05-06] MEDS: Remdesivir 100 mg Vial 200 MG in NS 0.9% 250 ml 210 ML IV ONE (20:08)
[2024-05-06] MEDS ORDERED: Dextrose 50% Syringe 50 ml 25 GM/50 ML SYRINGE IV PUSH PRN (20:18)
[2024-05-06] MEDS ORDERED: Potassium Citrate 10 meq TAB (NF) PO SCH (21:00)
[2024-05-06] MEDS: ICOSAPENT ETHYL 1 GM CAPSULE (NF) PO SCH (23:59)
[2024-05-07 06:31] LABS: ABS Lymphocytes 0.5 10^3/uL (1.0-4.8); ABS Monocytes 0.6 10^3/uL (0.0-1.1); ABS Neutrophils 4.3 10^3/uL (1.5-7.6); Hemoglobin 14.2 g/dL (13.2-16.3); Lymphocyte % 9.3 %; Mean Corpuscular Hemoglobin 34.6 pg (27-33); Mean Corpuscular Hgb Conc 33.9 g/dL (31-36); Mean Corpuscular Volume 102.2 fL (80-97); Mean Platelet Volume 8.2 fL (7.5-11.2); Platelet Count 117 10^3/uL (150-450); Red Cell Distribution Width 15.5 % (12-17); White Blood Count 5.5 10^3/uL (3.6-10.2)
[2024-05-07 06:55] LABS: Albumin/Globulin Ratio 1.1 (1-3); Calcium 8.5 mg/dL (8.6-10.3); Creatinine, Serum 1.16 mg/dL (0.67-1.17); Globulin 2.7 g/dL (2-4); Potassium 4.4 mmol/L (3.5-5.0); Total Bilirubin 0.5 mg/dL (0.2-1.0); Total Protein 5.7 g/dL (6.4-8.9); eGFR CKD-EPI 63.7 (>60)
[2024-05-07] MEDS: Tiotropium Brom/Olodaterol MDI (ACUTE) INH SCH (07:57)
[2024-05-07] MEDS: Aspirin EC 81 mg TAB.EC (enteric coated) PO SCH (10:32)
[2024-05-07 12:36] VITALS: BP 114/76
[2024-05-07] MEDS ORDERED: Remdesivir 100 mg Vial 100 MG in NS 0.9% 250 ml 230 ML IV SCH (21:00)
[2024-05-09 23:35] LABS: Anaplasma phagocytophilum Negative (Negative); B. miyamotoi PCR, B Negative (Negative); Babesia divergens/MO-1 Negative (Negative); Babesia ducani Negative (Negative); Ehrlichia chaffeensis Negative (Negative); Ehrlichia ewingii/canis Negative (Negative); Ehrlichia muris eauclairensis Negative (Negative)
== END 2024-05-07 15:50 | disposition home or self-care (01) | DRG 178 ==
LOC: ED 10:12 → EDHOLD 17:25 → SUATTDRO 17:25 → MED 23:12
PROVIDERS: ADMIT Hospitalist; ATTEND Internal Medicine

== ENCOUNTER 2024-06-04 16:13 | Observation (INO) ==
[2024-06-04 17:29] LABS: Urine Appearance Clear; Urine Bilirubin Negative (Negative); Urine Blood Negative (Negative); Urine Color Light-Yellow; Urine Glucose Negative (Negative); Urine Ketones Negative (Negative); Urine Nitrite Negative (Negative); Urine Protein Negative (Negative); Urine Specific Gravity 1.019 (1.002-1.030); Urine Urobilinogen 1+ (Negative); Urine pH 7.5 (5.0-8.0)
[2024-06-04] MEDS: Lactated Ringers SEPSIS* BAG 1,910 ML IV ONE (17:57)
[2024-06-04 18:10] LABS: ABS Eosinophils 0.2 10^3/uL (0.0-0.5); ABS Lymphocytes 0.8 10^3/uL (1.0-4.8); ABS Monocytes 0.5 10^3/uL (0.0-1.1); ABS Neutrophils 2.3 10^3/uL (1.5-7.6); ABS Nucleated RBC 0.01 10^3/ul; Eosinophil % 6.1 %; Hematocrit 44.3 % (38-53); Hemoglobin 15.2 g/dL (13.2-16.3); Lymphocyte % 19.7 %; Mean Corpuscular Hemoglobin 35.1 pg (27-33); Mean Corpuscular Hgb Conc 34.2 g/dL (31-36); Mean Corpuscular Volume 102.6 fL (80-97); Mean Platelet Volume 8.3 fL (7.5-11.2); Nucleated Red Blood Cells % 0.1 %/100WBC (0.0-0.8); Platelet Count 130 10^3/uL (150-450); Red Blood Count 4.31 10^6/uL (4.06-5.63); Red Cell Distribution Width 16.1 % (12-17); White Blood Count 3.8 10^3/uL (3.6-10.2)
[2024-06-04 18:31] LABS: Albumin 3.3 g/dL (3.2-5.2); Albumin/Globulin Ratio 1.1 (1-3); C Reactive Protein 15.3 mg/L (<8.01); Calcium 9.1 mg/dL (8.6-10.3); Creatinine, Serum 1.29 mg/dL (0.67-1.17); Globulin 2.9 g/dL (2-4); Potassium 4.9 mmol/L (3.5-5.0); Total Bilirubin 0.6 mg/dL (0.2-1.0); Total Protein 6.2 g/dL (6.4-8.9); eGFR CKD-EPI 56.1 (>60)
[2024-06-04] MEDS: Iodixanol (CONTRAST) 320 MG/ML 100 ML SDV IV ONE (19:30)
[2024-06-04 20:34] LABS: High Sensitivity Troponin 1 Hr 10 pg/mL (<20)
[2024-06-04] MEDS: Acetaminophen IV 1 GM/100ML 1,000 MG/100 ML BAG IV ONE (22:07)
[2024-06-04 22:38] LABS: High Sensitivity Troponin 3 Hr 9 pg/mL (<20)
[2024-06-05] MEDS: Morphine 4 MG/ML VIAL (1 ml) IV ONE (05:13)
[2024-06-05 09:19] LABS: ABS Eosinophils 0.4 10^3/uL (0.0-0.5); ABS Lymphocytes 1.1 10^3/uL (1.0-4.8); ABS Monocytes 0.7 10^3/uL (0.0-1.1); ABS Neutrophils 2.7 10^3/uL (1.5-7.6); ABS Nucleated RBC 0.01 10^3/ul; Eosinophil % 7.3 %; Hemoglobin 14.9 g/dL (13.2-16.3); Lymphocyte % 22.3 %; Mean Corpuscular Hemoglobin 34.7 pg (27-33); Mean Corpuscular Hgb Conc 33.8 g/dL (31-36); Mean Corpuscular Volume 102.6 fL (80-97); Mean Platelet Volume 8.6 fL (7.5-11.2); Nucleated Red Blood Cells % 0.2 %/100WBC (0.0-0.8); Platelet Count 133 10^3/uL (150-450); Red Blood Count 4.29 10^6/uL (4.06-5.63); White Blood Count 4.8 10^3/uL (3.6-10.2)
[2024-06-05 10:00] LABS: Calcium 8.9 mg/dL (8.6-10.3); Creatinine, Serum 1.39 mg/dL (0.67-1.17); Potassium 4.8 mmol/L (3.5-5.0); eGFR CKD-EPI 51.2 (>60)
[2024-06-05] MEDS: Lactated Ringers 1000 ml BAG 1,000 ML IV SCH ×2 (11:56→17:02)
[2024-06-05] MEDS: Tiotropium Brom/Olodaterol MDI (ACUTE) INH SCH (11:58)
[2024-06-05] MEDS: Aspirin EC 81 mg TAB.EC (enteric coated) PO SCH (11:58)
[2024-06-05] MEDS: Metoprolol Succinate XL 200 mg TAB PO SCH (12:00)
[2024-06-05] MEDS: ICOSAPENT ETHYL 1 GM CAPSULE (NF) PO SCH (12:00)
[2024-06-05] MEDS: Morphine 2 MG/ML SYRINGE IV ONE (17:24)
[2024-06-05 17:56] VITALS: BP 96/73
== END 2024-06-05 17:25 | disposition short-term general hospital (02) ==
LOC: ED 16:13 → EDHOLD 16:13 → SUATTDRO 06-05 04:30 → MEDTELE 06-05 08:00
PROVIDERS: ADMIT Internal Medicine; ATTEND Student in an Organized Health Care Education/Training Program